=== PATIENT | male | born 1945 | race Caucasian/White ===

== ENCOUNTER 2017-11-29 16:04 | Inpatient (IN) | payer BC, OTHER ==
[~2017-11-29] VITALS: Ht 188 cm; Wt 74.0 kg
[2017-11-29] MEDS ORDERED: SODIUM CHLORIDE 0.9% 1000ML 1,000 ML IV STA (17:09)
[2017-11-29] MEDS ORDERED: ALBUTEROL 0.083% NEBU SOLN 3 ML VIAL INH STA ×2 (17:09→18:36)
[2017-11-29 17:39] LABS: BASO % 2.6 %; EOS % 4.4 %; EOS ABS # 0.34 K/uL (0-0.5); HEMATOCRIT 43.9 % (42-52); HEMOGLOBIN 15.3 g/dL (14.0-18.0); IG# 0.02 K/uL (0.00-0.02); LYMPH % 14.3 %; LYMPH ABS # 1.12 K/uL (1.2-3.4); MEAN CELL VOLUME 90.9 fL (80-100); MEAN CORPUSCULAR HEMOGLOBIN 31.7 pg (25-34); MEAN CORPUSCULAR HGB CONC 34.9 g/dl (32-36); MEAN PLATELET VOLUME 10.2 fL (7.4-10.4); MONO % 9.1 %; MONO ABS # 0.71 K/uL (0.11-0.59); NEUT % 69.3 %; NEUT ABS # 5.42 K/uL (1.4-6.5); PLATELET COUNT 227 K/uL (130-400); RED CELL DISTRIBUTION WIDTH CV 13.5 % (11.5-14.5); RED CELL DISTRIBUTION WIDTH SD 44.3 fL (36.4-46.3); WHITE BLOOD COUNT 7.81 K/uL (4.8-10.8)
[2017-11-29 17:58] LABS: ALBUMIN 3.7 gm/dl (3.4-5.0); CALCIUM 9.1 mg/dl (8.5-10.1); CREATININE 1.25 mg/dl (0.60-1.40); POTASSIUM 4.4 mmol/L (3.5-5.1)
--- NOTE | 2017-11-29 17:58 | DIAGNOSTIC IMAGING REPORT ---
CHEST ONE VIEW PORTABLE CLINICAL HISTORY: 72 years-old Male presenting with EVALUATE RESPIRATORY DISTRESS.DYSPNEA. TECHNIQUE: Portable upright AP view of the chest was obtained. COMPARISON: None. FINDINGS: Atherosclerosis of the aortic arch. Cardiac silhouette normal in size. Diffusely heterogeneous lung markings. Mild bronchial wall thickening suggested. Prominent skin fold over the right lateral apex. No focal opacity. No large effusion or pneumothorax. Osseous structures normal. Upper abdomen normal. IMPRESSION: 1. Bronchial wall thickening could suggest bronchitis or mild congestive change. 2. Prominent lung markings could suggest underlying chronic lung disease. 3. No focal infiltrate to suggest pneumonia. Electronically signed by: Abbe Mc M.D. 11/29/2017 5:57 PM Dictated Date/Time: 11/29/2017 5:56 PM
[2017-11-29] MEDS ORDERED: OPTIRAY 320 IV PRN (19:15)
[2017-11-29] MEDS ORDERED: LEVAQUIN 750MG / 150ML D5W IV STA (19:45)
[2017-11-29] MEDS ORDERED: METHYLPREDNISOLONE 125 MG VIAL IV STA (19:45)
--- NOTE | 2017-11-29 19:54 | DIAGNOSTIC IMAGING REPORT ---
(CHEST FOR PE) ANGIO WITH CLINICAL HISTORY: 72 years-old Male presenting with ^+dd abd sob, clinical concern for pulmonary embolus. TECHNIQUE: Multidetector CT angiography of the chest was performed after administration of intravenous contrast. 3-D volumetric and/or maximum intensity projection (MIP) images were subsequently reconstructed for review. IV contrast: 93 mL of Optiray 320. A dose lowering technique was used consistent with the principles of ALARA (as low as reasonably achievable). COMPARISON: Chest x-ray performed earlier the same day. CT DOSE (mGy.cm): The estimated cumulative dose is 278.59 mGy.cm. FINDINGS: [employer] topogram: Prominent lung markings and bronchial wall thickening. Pulmonary vasculature: The study is suboptimal for the assessment of the pulmonary vascular tree secondary to timing of the contrast bolus and respiratory motion artifact. Allowing for limited image quality, no central filling defect to suggest pulmonary embolus. Main pulmonary artery is not enlarged. No flattening of the interventricular septum. No intracardiac filling defect. No reflux of contrast into the hepatic veins. Remaining chest: On soft tissue windows, normal thyroid and thoracic inlet. Mediastinal and bilateral hilar lymphadenopathy. An index node in the subcarinal region measures 2.2 cm in the short axis (series 4 image 180). Conglomerate lymph nodes make individual measurement somewhat difficult in the daniel. Atherosclerosis of the aorta. Normal heart size. Coronary artery calcification. No pericardial or pleural effusion. Upper abdomen normal. On lung windows, respiratory artifact makes evaluation of the lung parenchyma difficult. Allowing for this, no focal infiltrate or nodule. Smooth interlobular septal thickening evident. Trace emphysematous changes may be present. Diffuse bronchial wall thickening. Central airways demonstrate layering debris. On bone windows, degenerative changes of the spine. IMPRESSION: 1. Allowing for suboptimal image quality, no evidence of pulmonary embolus. 2. Mediastinal and bilateral hilar lymphadenopathy raise concern for lymphoproliferative disease. No focal lung mass or nodule to suggest a lung primary with metastatic lymphadenopathy. Correlate with known underlying malignancy. 3. Findings consistent with congestive change. No pulmonary edema. Congestive change may be result of lymphatic obstruction due to lymphadenopathy. The report will be called/faxed according to standard departmental protocol. Electronically signed by: Abbe Mc M.D. 11/29/2017 7:53 PM Dictated Date/Time: 11/29/2017 7:47 PM
[2017-11-29] MEDS ORDERED: ACETAMINOPHEN 325 MG TAB PO PRN (20:30)
[2017-11-29] MEDS ORDERED: ONDANSETRON INJ 2 MG/ML 2 ML VIAL IV PRN (20:30)
[2017-11-29] MEDS ORDERED: PATIENT'S ALLERGY INFO NEEDS ENTERED SCH (20:45)
[2017-11-29] MEDS ORDERED: IBUP1CAP9 PO (21:13)
[2017-11-29] MEDS: ALBUT/IPRATROP 3MG/0.5MG NEB 3 ML VIAL NEB SCH (21:38)
--- NOTE | 2017-11-29 21:38 | History and Physical ---
History & Physical Date & Time of Service: Nov 29, 2017 at 21:03 Chief Complaint: Trouble Breathing,Cant Catch Breath Primary Care Physician: Jorge Mejia M.D. History of Present Illness Source: patient, family, clinic records, hospital records Pt is a 72-year-old male history tobacco abuse presented to ER with c/o cough and shortness of breath. Patient reports for 6-12 months has been having mucus and cough sometimes productive pale yellow. States yesterday started with increased mucus and coughing and had a coughing spell with increased shortness of breath and felt anxious and reports he hyperventilated. Feels increased shortness of breath with rest since yesterday. Patient reports shortness of breath with walking approximately 30 feet for past several weeks. Past 2 weeks feels like having some weakness with walking in using furniture in the house. Denies any falls. Patient reports chronic right nasal congestion, rhinorrhea in which he uses Dristan (oxymetazoline) every night. Patient smokes 1 pack a day 65 years. Denies known COPD dx. He does not go to Dr regularly. He reports 30 pound weight loss since 02/2017. He reports decreased appetite past year. Has BM every other day. Last BM 2 days ago. Reports history colonoscopy every 3 years secondary to polyps. Last colonoscopy 02/2017. Reports once had bright red blood on stool after straining to have BM but this has not occurred recently. Denies melena, hematochezia recently. Denies fever/chills, diaphoresis, N/V/D, COOPER, dizziness, syncope, vision changes , neck pain, CP, orthopnea, PND, palpitations, hemoptysis, sore throat, otalgia , epistaxis, abdominal pain, paresthesias, extremity edema, rashes, dysuria, hematuria, urinary retention. Past Medical/Surgical History Medical Problems: (1) Hx of colonic polyps Permanent Comment: adenomatous polyp Status: Chronic Surgical Problems: (1) Hx of appendectomy Status: Resolved (2) Hx of colonoscopy Status: Resolved (3) Hx of tonsillectomy Status: Resolved Family History Diabetes mellitus FH: colon cancer Social History Smoking Status: Current Every Day Smoker (smokes 1ppd x 55 years) Smokeless Tobacco Use: No Alcohol Use: 1 beer a week Drug Use: none Marital Status: Housing status: lives with significant other Allergies Coded Allergies: NO KNOWN DRUG ALLERGIES (Verified Allergy, Unknown, No known allergies, ) Home Medications Scheduled Ibuprofen (Ibuprofen), 2 CAP PO BID Review of Systems See HPI for pertinent positives & negatives. All other systems reviewed and were otherwise negative Physical Exam Vital Signs Date Time Temp Pulse Resp B/P (MAP) Pulse Ox O2 Delivery O2 Flow Rate FiO2 11/29/17 19:55 92 18 134/69 96 Nasal Cannula 2.0 11/29/17 19:54 81 11/29/17 18:00 84 24 148/52 99 Nasal Cannula 2.0 11/29/17 17:07 97 Nasal Cannula 2.0 11/29/17 16:19 Nasal Cannula 2.0 11/29/17 16:15 36.4 90 16 133/67 88 Room Air General Appearance: no apparent distress, + thin Head: normocephalic, atraumatic Eyes: normal inspection, PERRL, sclerae normal ENT: hearing grossly normal, pharynx normal, + pertinent finding (mucous membranes moist) Neck: supple, trachea midline Respiratory/Chest: no respiratory distress, no accessory muscle use, + rhonchi (bases bilaterally, no rales or wheezing noted) Cardiovascular: regular rate, rhythm, no murmur, normal peripheral pulses Abdomen/GI: normal bowel sounds, non tender, soft Extremities/Musculoskelatal: normal capillary refill, no pedal edema, non- tender Neurologic/Psych: alert, normal mood/affect, oriented x 3 Skin: normal color, warm/dry Diagnostics Laboratory Results Results Past 24 Hours Test 11/29/17 17:26 11/29/17 19:18 Range/Units White Blood Count 7.81 4.8-10.8 K/uL Red Blood Count 4.83 4.7-6.1 M/uL Hemoglobin 15.3 14.0-18.0 g/dL Hematocrit 43.9 42-52 % Mean Corpuscular Volume 90.9 80-100 fL Mean Corpuscular Hemoglobin 31.7 25-34 pg Mean Corpuscular Hemoglobin Concent 34.9 32-36 g/dl Platelet Count 227 130-400 K/uL Mean Platelet Volume 10.2 7.4-10.4 fL Neutrophils (%) (Auto) 69.3 % Lymphocytes (%) (Auto) 14.3 % Monocytes (%) (Auto) 9.1 % Eosinophils (%) (Auto) 4.4 % Basophils (%) (Auto) 2.6 % Neutrophils # (Auto) 5.42 1.4-6.5 K/uL Lymphocytes # (Auto) 1.12 1.2-3.4 K/uL Monocytes # (Auto) 0.71 0.11-0.59 K/uL Eosinophils # (Auto) 0.34 0-0.5 K/uL Basophils # (Auto) 0.20 0-0.2 K/uL RDW Standard Deviation 44.3 36.4-46.3 fL RDW Coefficient of Variation 13.5 11.5-14.5 % Immature Granulocyte % (Auto) 0.3 % Immature Granulocyte # (Auto) 0.02 0.00-0.02 K/uL Prothrombin Time 10.9 9.0-12.0 SECONDS Prothromb Time International Ratio 1.0 0.9-1.1 D-Dimer 1460 0-500 ug/L FEU Sodium Level 139 136-145 mmol/L Potassium Level 4.4 3.5-5.1 mmol/L Chloride Level 104 98-107 mmol/L Carbon Dioxide Level 29 21-32 mmol/L Anion Gap 6.0 3-11 mmol/L Blood Urea Nitrogen 19 7-18 mg/dl Creatinine 1.25 0.60-1.40 mg/dl Est Creatinine Clear Calc Drug Dose 57.6 ml/min Estimated GFR () 67.2 Estimated GFR (Non- 58.0 BUN/Creatinine Ratio 15.0 10-20 Random Glucose 103 70-99 mg/dl Calcium Level 9.1 8.5-10.1 mg/dl Total Bilirubin 0.7 0.2-1 mg/dl Aspartate Amino Transf (AST/SGOT) 19 15-37 U/L Alanine Aminotransferase (ALT/SGPT) 18 12-78 U/L Alkaline Phosphatase 104 45-117 U/L Troponin I 0.019 0-0.045 ng/ml Pro-B-Type Natriuretic Peptide 207 0-900 pg/ml Total Protein 7.0 6.4-8.2 gm/dl Albumin 3.7 3.4-5.0 gm/dl Globulin 3.3 2.5-4.0 gm/dl Albumin/Globulin Ratio 1.1 0.9-2 Urine Color DK YELLOW Urine Appearance CLEAR CLEAR Urine pH 5.0 4.5-7.5 Urine Specific [place] 1.026 1.000-1.030 Urine Protein NEG NEG Urine Glucose (UA) NEG NEG Urine Ketones 2+ NEG Urine Occult Blood NEG NEG Urine Nitrite NEG NEG Urine Bilirubin NEG NEG Urine Urobilinogen NEG NEG Urine Leukocyte Esterase NEG NEG Diagnostic Radiology CXR: IMPRESSION: 1. Bronchial wall thickening could suggest bronchitis or mild congestive change. 2. Prominent lung markings could suggest underlying chronic lung disease. 3. No focal infiltrate to suggest pneumonia. CT CHEST: IMPRESSION: 1. Allowing for suboptimal image quality, no evidence of pulmonary embolus. 2. Mediastinal and bilateral hilar lymphadenopathy raise concern for lymphoproliferative disease. No focal lung mass or nodule to suggest a lung primary with metastatic lymphadenopathy. Correlate with known underlying malignancy. 3. Findings consistent with congestive change. No pulmonary edema. Congestive change may be result of lymphatic obstruction due to lymphadenopathy. EKG EKG: NSR, rate 80, no acute changes noted Impression Assessment and Plan HYPOXIA SECONDARY TO ACUTE BRONCHITIS Pt reports chronic cough and mucous and 55 year smoking hx. increased cough and mucous yesterday with increased SOB past 1-2 weeks. In ER pt afebrile, no leukocytosis. 88% on RA up to 96% on 2L NC. Pt given Levaquin IV, 2 albuterol neb tx, 1L NSS, Solumedrol 125mg IV. CT CHEST: No PE, Mediastinal and bilateral hilar lymphadenopathy raise concern for lymphoproliferative disease. No focal lung mass or nodule to suggest a lung primary with metastatic lymphadenopathy. Findings consistent with congestive change. No pulmonary edema. Congestive change may be result of lymphatic obstruction due to lymphadenopathy. -sputum culture -pending influenza swab -Levaquin -Solumedrol -guaifenesin with codeine prn cough -duoneb -consider out-patient pulmonology consult -cbc, prp in am CHRONIC NASAL CONGESTION Would recommend patient stop using the Dristan (afrin) nasal spray as he is probably having rebound congestion from chronic use. -Will start on Flonase nasal spray TOBACCO USE Pt denies nicotine patch at this time -smoking cessation discussed DVT Prophylaxis -Lovenox Disposition admit tele Full Code as per discussion with pt Follows with Dr Mejia for routine care Pt was seen with Dr Devine. See addendum ADDENDUM: I have seen and examined the patient and agree with the assessment and plan as above. No infiltrate on CXR but increased inflammation around the airways. Seem to have a chronic element of upper airway issues and frequently uses oxymetolazone which will cause problems with tachyphylaxis long-term. Stopping this now and switching to Flonase to help with post nasal drip issues while symptoms persist. Chronic smoker with poss structural lung disease on CT scan, and higher possibility of pseudomonas so going with the higher dosage of Levaquin. No wheezing on my exam in the ER after breathing treatments, so may be able to stop/wean steroids soon. Nilson, DO Resuscitation Status VTE Prophylaxis Will order VTE Prophylaxis: Yes Additional Copies To Jorge Mejia M.D.
[2017-11-29 22:20] VITALS: BP 122/62; PULSE 91; TEMP 36.6; O2SAT 91; BMI 20.9
[2017-11-29] MEDS ORDERED: PNEUMOCOCCAL POLYSACCHARIDES 25 MCG/0.5 ML VIAL/SYR IM. ONE (22:30)
[2017-11-29] MEDS ORDERED: PNEUMOCOCCAL ADMINISTRATION CHARGE ONE (22:30)
[2017-11-29 22:32] LABS: INFLUENZA A PCR Neg for Influ A (NEG); INFLUENZA B PCR Neg for Influ B (NEG)
[2017-11-29] MEDS ORDERED: ENOXAPARIN 40 MG/0.4 ML SYR SC SCH (23:00)
[2017-11-29] MEDS: GUAIFENESIN/CODEINE 100MG/10MG 5ML UDC PO PRN (23:38)
[2017-11-29] MEDS: FLUTICASONE PROPIONATE NA SPR 16 GM BTL NAE SCH (23:39)
--- NOTE | 2017-11-29 23:46 | EMERGENCY ROOM VISIT NOTE ---
History Report prepared by Deandra: Kia Raygoza Under the Supervision of: Dr. Buck Marks D.O. First contact with patient: 16:54 Chief Complaint: RESPIRATORY PROBLEMS Stated Complaint: TROUBLE BREATHING,CANT CATCH BREATH Nursing Triage Summary: Pt ambulatory to triage for eval of difficulty breathing x 2 weeks. Pt states, "I had an episode last night where I couldn't catch my breath at all. I have a lot of mucous. I have lost 30lbs since February." Denies cp. Fatigue. Muscle atrophy. Cough. History of Present Illness The patient is a 72 year old male who presents to the Emergency Room with complaints of persistent SOB starting 2 weeks ago. His symptoms started with a cough 2 weeks ago. He was coughing up white mucous, but no blood. Last night, he became SOB with the coughing. He felt some congestion which he tried coughing up, but then he started hyperventilating and felt like he could not catch his breath. Today he has been constantly coughing and feeling SOB. He denies any fever, chest pain, abdominal pain, nausea, vomiting, urinary symptoms , change in bowel movement, or calf swelling. He normally does not wear oxygen. He does smoke. He has lost significant weight in the past 6 months. He denies any recent travel. He has a history of skin cancer. Source of History: patient, family Onset: 2 weeks ago Position: chest Quality: other (SOB) Timing: other (persistent) Associated Symptoms: + cough, No fevers, No chest pain, No nausea, No vomiting, No abdominal pain, No urinary symptoms Review of Systems See HPI for pertinent positives & negatives. A total of 10 systems reviewed and were otherwise negative. Past Medical & Surgical Medical Problems: (1) Bronchitis (2) Hx of colonic polyps (3) Hypoxia Surgical Problems: (1) Hx of appendectomy (2) Hx of colonoscopy (3) Hx of tonsillectomy Family History No pertinent family history stated. Social History Smoking Status: Current Every Day Smoker Marital Status: Housing Status: lives with significant other Occupation Status: retired Current/Historical Medications Scheduled Ibuprofen (Ibuprofen), 2 CAP PO BID Allergies Coded Allergies: NO KNOWN DRUG ALLERGIES (Verified Allergy, Unknown, No known allergies, ) Physical Exam Vital Signs Date Time Temp Pulse Resp B/P (MAP) Pulse Ox O2 Delivery O2 Flow Rate FiO2 11/29/17 19:55 92 18 134/69 96 Nasal Cannula 2.0 11/29/17 19:54 81 11/29/17 18:00 84 24 148/52 99 Nasal Cannula 2.0 11/29/17 17:07 97 Nasal Cannula 2.0 11/29/17 16:19 Nasal Cannula 2.0 11/29/17 16:15 36.4 90 16 133/67 88 Room Air Physical Exam GENERAL: Sitting up in bed, malnourished, no acute distress, nontoxic, talking in full sentences, on nasal cannula EYE EXAM: normal conjunctiva. OROPHARYNX: no exudate, no erythema, lips, buccal mucosa, and tongue normal and mucous membranes are moist NECK: supple, no nuchal rigidity, no adenopathy, non-tender LUNGS: Diffuse wheezing bilaterally. Normal chest wall mechanics HEART: no murmurs, S1 normal and S2 normal ABDOMEN: abdomen soft, non-tender, normo-active bowel sounds, no masses, no rebound or guarding. BACK: Back is symmetrical on inspection and there is no deformity, no midline tenderness, no CVA tenderness. SKIN: no rashes and no bruising UPPER EXTREMITIES: upper extremities are grossly normal. LOWER EXTREMITIES: No pitting edema. Calves equal bilaterally. NEURO EXAM: Normal sensorium, cranial nerves II-XII grossly intact, normal speech, no gross weakness of arms, no gross weakness of legs. Medical Decision & Procedures ER Provider Diagnostic Interpretation: Radiology results as stated below per my review and the radiologist's interpretation: CHEST ONE VIEW PORTABLE CLINICAL HISTORY: 72 years-old Male presenting with EVALUATE RESPIRATORY DISTRESS.DYSPNEA. TECHNIQUE: Portable upright AP view of the chest was obtained. COMPARISON: None. FINDINGS: Atherosclerosis of the aortic arch. Cardiac silhouette normal in size. Diffusely heterogeneous lung markings. Mild bronchial wall thickening suggested. Prominent skin fold over the right lateral apex. No focal opacity. No large effusion or pneumothorax. Osseous structures normal. Upper abdomen normal. IMPRESSION: 1. Bronchial wall thickening could suggest bronchitis or mild congestive change. 2. Prominent lung markings could suggest underlying chronic lung disease. 3. No focal infiltrate to suggest pneumonia. Electronically signed by: Abbe Mc M.D. 11/29/2017 5:57 PM Dictated Date/Time: 11/29/2017 5:56 PM (CHEST FOR PE) ANGIO WITH CLINICAL HISTORY: 72 years-old Male presenting with ^+dd abd sob, clinical concern for pulmonary embolus. TECHNIQUE: Multidetector CT angiography of the chest was performed after administration of intravenous contrast. 3-D volumetric and/or maximum intensity projection (MIP) images were subsequently reconstructed for review. IV contrast: 93 mL of Optiray 320. A dose lowering technique was used consistent with the principles of ALARA (as low as reasonably achievable). COMPARISON: Chest x-ray performed earlier the same day. CT DOSE (mGy.cm): The estimated cumulative dose is 278.59 mGy.cm. FINDINGS: Surgical Instruments Inspector topogram: Prominent lung markings and bronchial wall thickening. Pulmonary vasculature: The study is suboptimal for the assessment of the pulmonary vascular tree secondary to timing of the contrast bolus and respiratory motion artifact. Allowing for limited image quality, no central filling defect to suggest pulmonary embolus. Main pulmonary artery is not enlarged. No flattening of the interventricular septum. No intracardiac filling defect. No reflux of contrast into the hepatic veins. Remaining chest: On soft tissue windows, normal thyroid and thoracic inlet. Mediastinal and bilateral hilar lymphadenopathy. An index node in the subcarinal region measures 2.2 cm in the short axis (series 4 image 180). Conglomerate lymph nodes make individual measurement somewhat difficult in the daniel. Atherosclerosis of the aorta. Normal heart size. Coronary artery calcification. No pericardial or pleural effusion. Upper abdomen normal. On lung windows, respiratory artifact makes evaluation of the lung parenchyma difficult. Allowing for this, no focal infiltrate or nodule. Smooth interlobular septal thickening evident. Trace emphysematous changes may be present. Diffuse bronchial wall thickening. Central airways demonstrate layering debris. On bone windows, degenerative changes of the spine. IMPRESSION: 1. Allowing for suboptimal image quality, no evidence of pulmonary embolus. 2. Mediastinal and bilateral hilar lymphadenopathy raise concern for lymphoproliferative disease. No focal lung mass or nodule to suggest a lung primary with metastatic lymphadenopathy. Correlate with known underlying malignancy. 3. Findings consistent with congestive change. No pulmonary edema. Congestive change may be result of lymphatic obstruction due to lymphadenopathy. The report will be called/faxed according to standard departmental protocol. Electronically signed by: Abbe Mc M.D. 11/29/2017 7:53 PM Dictated Date/Time: 11/29/2017 7:47 PM Laboratory Results 11/29/17 17:26 Red Blood Count 4.83, Mean Corpuscular Volume 90.9, Mean Corpuscular Hemoglobin 31.7, Mean Corpuscular Hemoglobin Concent 34.9, Mean Platelet Volume 10.2, Neutrophils (%) (Auto) 69.3, Lymphocytes (%) (Auto) 14.3, Monocytes (%) (Auto) 9.1, Eosinophils (%) (Auto) 4.4, Basophils (%) (Auto) 2.6, Neutrophils # (Auto) 5.42, Lymphocytes # (Auto) 1.12, Monocytes # (Auto) 0.71, Eosinophils # (Auto) 0.34, Basophils # (Auto) 0.20 11/29/17 17:26 Test 11/29/17 17:26 11/29/17 19:18 White Blood Count 7.81 K/uL (4.8-10.8) Red Blood Count 4.83 M/uL (4.7-6.1) Hemoglobin 15.3 g/dL (14.0-18.0) Hematocrit 43.9 % (42-52) Mean Corpuscular Volume 90.9 fL (80-100) Mean Corpuscular Hemoglobin 31.7 pg (25-34) Mean Corpuscular Hemoglobin Concent 34.9 g/dl (32-36) Platelet Count 227 K/uL (130-400) Mean Platelet Volume 10.2 fL (7.4-10.4) Neutrophils (%) (Auto) 69.3 % Lymphocytes (%) (Auto) 14.3 % Monocytes (%) (Auto) 9.1 % Eosinophils (%) (Auto) 4.4 % Basophils (%) (Auto) 2.6 % Neutrophils # (Auto) 5.42 K/uL (1.4-6.5) Lymphocytes # (Auto) 1.12 K/uL (1.2-3.4) Monocytes # (Auto) 0.71 K/uL (0.11-0.59) Eosinophils # (Auto) 0.34 K/uL (0-0.5) Basophils # (Auto) 0.20 K/uL (0-0.2) RDW Standard Deviation 44.3 fL (36.4-46.3) RDW Coefficient of Variation 13.5 % (11.5-14.5) Immature Granulocyte % (Auto) 0.3 % Immature Granulocyte # (Auto) 0.02 K/uL (0.00-0.02) Prothrombin Time 10.9 SECONDS (9.0-12.0) Prothromb Time International Ratio 1.0 (0.9-1.1) D-Dimer 1460 ug/L FEU (0-500) Anion Gap 6.0 mmol/L (3-11) Est Creatinine Clear Calc Drug Dose 57.6 ml/min Estimated GFR () 67.2 Estimated GFR (Non- 58.0 BUN/Creatinine Ratio 15.0 (10-20) Calcium Level 9.1 mg/dl (8.5-10.1) Total Bilirubin 0.7 mg/dl (0.2-1) Aspartate Amino Transf (AST/SGOT) 19 U/L (15-37) Alanine Aminotransferase (ALT/SGPT) 18 U/L (12-78) Alkaline Phosphatase 104 U/L (45-117) Troponin I 0.019 ng/ml (0-0.045) Pro-B-Type Natriuretic Peptide 207 pg/ml (0-900) Total Protein 7.0 gm/dl (6.4-8.2) Albumin 3.7 gm/dl (3.4-5.0) Globulin 3.3 gm/dl (2.5-4.0) Albumin/Globulin Ratio 1.1 (0.9-2) Urine Color DK YELLOW Urine Appearance CLEAR (CLEAR) Urine pH 5.0 (4.5-7.5) Urine Specific [place] 1.026 (1.000-1.030) Urine Protein NEG (NEG) Urine Glucose (UA) NEG (NEG) Urine Ketones 2+ (NEG) Urine Occult Blood NEG (NEG) Urine Nitrite NEG (NEG) Urine Bilirubin NEG (NEG) Urine Urobilinogen NEG (NEG) Urine Leukocyte Esterase NEG (NEG) Laboratory results per my review. Medications Administered Medications (Trade) Dose Ordered Sig/Arnel Route Start Time Stop Time Status Last Admin Dose Admin Albuterol Sulfate (Ventolin 0.083% 2.5MG/3ML Neb) 2.5 mg NOW STAT INH 11/29/17 17:09 18 17:11 DC 11/29/17 17:28 2.5 MG Sodium Chloride 1,000 ml @ 999 mls/hr Q1H1M STAT IV 11/29/17 17:09 11/29/17 18:09 DC 11/29/17 17:28 999 MLS/HR Albuterol Sulfate (Ventolin 0.083% 2.5MG/3ML Neb) 2.5 mg NOW STAT INH 11/29/17 18:36 11/29/17 18:37 DC 11/29/17 18:43 2.5 MG Levofloxacin (Levaquin / D5W) 750 mg NOW STAT IV 11/29/17 19:45 11/29/17 19:46 DC 11/29/17 19:55 750 MG Methylprednisolone Sodium Succinate (Solu-Medrol IV) 125 mg NOW STAT IV 11/29/17 19:45 11/29/17 19:46 DC 11/29/17 19:55 125 MG Albuterol/ Ipratropium (Duoneb) 3 ml Q6R NEB 11/29/17 21:00 12/29/17 20:59 11/29/17 21:38 3 ML ECG Per My Interpretation Indication: SOB/dyspnea Rate (beats per minute): 83 Rhythm: sinus rhythm Findings: no ectopy, other (normal axis) ED Course ED COURSE: Vital signs were reviewed and showed hypoxia. The patients medical record was reviewed The above diagnostic studies were performed and reviewed. ED treatments and interventions as stated above. 1701: The patient was evaluated in room B12A. A complete history and physical examination was performed. 170: Sodium Chloride 1000 ml @ 999 mls/hr IV, Albuterol Sulfate 2.5 mg INH. 1835: I reevaluated the patient. He is feeling a little better after the nebulizer treatment. 183: Albuterol Sulfate 2.5 mg INH. 191: I reevaluated the patient. I updated him on the results. 1944: Solu-Medrol IV 125 mg IV, Levofloxacin 750 mg IV. 1999: Upon reevaluation, the patient is stable. I discussed my findings with the patient and his family and they understands and agrees with the treatment plan. Based on the patients age, coexisting illnesses, exam and lab findings the decision to treat as an inpatient was made. The patient remained stable while under my care. The patient will be evaluated for further management. 2001: I reviewed the patient's case with Dr[facility] Luna[facility]. He will evaluate the patient for further management. Medical Decision Differential diagnoses includes but is not limited to pneumonia, bronchitis, COPD/Asthma exacerbation, pneumothorax, pulmonary embolism, congestive heart failure, acute coronary syndrome Patient is a 72-year-old male who is a smoker the presents the ER for persistent cough for the past 2 weeks associated with white sputum. Patient notes that recently over the past 2 days he has been becoming more short of breath. IV was established and CBC along with BMP, LFTs, bilirubin and troponin were unremarkable. Patient was hypoxic upon presentation. D-dimer was elevated. CT PE was performed and was unremarkable. UA was negative. Patient with his diffuse wheezing was treated with nebs and steroids. I did give him IV Levaquin as I favor this as a component of bronchitis. Patient family were updated at bedside. Admitted to internal medicine for hypoxia associated with diffuse wheezing. Medication Reconcilliation Current Medication List: was personally reviewed by me Blood Pressure Screening Patient's blood pressure: Normal blood pressure Blood pressure disposition: Did not require urgent referral Consults Time Called: 1999 Consulting Physician: Dr. Luna [facility] hospitalist Returned Call: 2001 I reviewed the patient's case with him. He will evaluate the patient for further management. Impression Primary Impression: Bronchitis Additional Impressions: COPD (chronic obstructive pulmonary disease) Hypoxia Scribe Attestation The scribe's documentation has been prepared under my direction and personally reviewed by me in its entirety. I confirm that the note above accurately reflects all work, treatment, procedures, and medical decision making performed by me. Departure Information Dispostion Being Evaluated By Hospitalist Referrals Jorge Mejia M.D. (PCP) Patient Instructions My [facility] Problem Qualifiers Additional Impressions: COPD (chronic obstructive pulmonary disease) COPD type: unspecified COPD Qualified Codes: J44.9 - Chronic obstructive pulmonary disease, unspecified
[2017-11-30] VITALS (10 sets, daily range): BP systolic 96–149; BP diastolic 53–69; PULSE 74–113; TEMP 36.4–36.6; O2SAT 87–93
[2017-11-30] MEDS: METHYLPREDNISOLONE IV 40 MG in SYRINGE 0 ML IV SCH ×4 (01:31→21:34)
[2017-11-30] MEDS: GUAIFENESIN/CODEINE 100MG/10MG 5ML UDC PO PRN ×2 (06:20→12:35)
[2017-11-30 06:23] LABS: BASO % 0.2 %; BASO ABS # 0.01 K/uL (0-0.2); EOS % 0.2 %; EOS ABS # 0.01 K/uL (0-0.5); HEMATOCRIT 40.5 % (42-52); HEMOGLOBIN 13.7 g/dL (14.0-18.0); LYMPH % 6.8 %; LYMPH ABS # 0.28 K/uL (1.2-3.4); MEAN CELL VOLUME 91.2 fL (80-100); MEAN CORPUSCULAR HEMOGLOBIN 30.9 pg (25-34); MEAN CORPUSCULAR HGB CONC 33.8 g/dl (32-36); MEAN PLATELET VOLUME 10.4 fL (7.4-10.4); MONO % 1.5 %; MONO ABS # 0.06 K/uL (0.11-0.59); NEUT % 91.3 %; NEUT ABS # 3.76 K/uL (1.4-6.5); PLATELET COUNT 202 K/uL (130-400); RED CELL DISTRIBUTION WIDTH CV 13.6 % (11.5-14.5); RED CELL DISTRIBUTION WIDTH SD 44.9 fL (36.4-46.3); WHITE BLOOD COUNT 4.12 K/uL (4.8-10.8)
[2017-11-30 06:52] LABS: CALCIUM 8.8 mg/dl (8.5-10.1); CREATININE 1.27 mg/dl (0.60-1.40); POTASSIUM 4.2 mmol/L (3.5-5.1)
[2017-11-30] MEDS: ALBUT/IPRATROP 3MG/0.5MG NEB 3 ML VIAL NEB SCH ×2 (07:52→13:38)
[2017-11-30] MEDS: FLUTICASONE PROPIONATE NA SPR 16 GM BTL NAE SCH (11:30)
[2017-11-30] MEDS ORDERED: IBUPROFEN 600 MG TAB PO PRN (14:45)
[2017-11-30] MEDS ORDERED: POLYETHYLENE (MIRALAX) 17 GM PACK PO PRN (15:00)
[2017-11-30] MEDS ORDERED: ALBUT/IPRATROP 3MG/0.5MG NEB 3 ML VIAL INH PRN (15:45)
[2017-11-30] MEDS: ALBUT/IPRATROP 3MG/0.5MG NEB 3 ML VIAL INH SCH ×2 (16:00→19:37)
--- NOTE | 2017-11-30 16:57 | ECHOCARDIOGRAM REPORT ---
*NOTICE TO RECEIVING [employer] This information is strictly Confidential and protected under [place] law. [place] law prohibits you from making any further disclosure of this information unless further disclosure is expressly permitted by the written consent of the person to whom it pertains or is authorized by law. A general authorization for the release of medical or other information is not sufficient for this purpose. Hospital accepts no responsibility if the information is made available to any other person, INCLUDING THE PATIENT. Interpretation Summary * Name: TRINA ANTHONY Study Date: 11/30/2017 02:02 PM BP: 127/63 mmHg * Patient Location: [facility]\S\N278\S\2 HR: 93 * : 1945 (M/d/yyyy) Gender: Male Height: 73 in * Age: 72 yrs Ethnicity: [place] Weight: 163 lb * Ordering Physician: Lidia Terrazas * Referring Physician: Self, Referred * Performed By: Aneta Pena RDCS * * Reason For Study: SOB, SHANKS * BSA: 2.0 m2 * The study was technically adequate. * -- Conclusions -- * No regional wall motion abnormalities noted. * The left ventricle is hyperdynamic. * The left ventricular ejection fraction = >70 %. * The right ventricle is normal in size and function. * Aortic valve sclerosis mild, without significant aortic valvular stenosis. * Doppler findings do not suggest pulmonary hypertension. * Grade I diastolic dysfunction, (abnormal relaxation pattern). Procedure Details * A complete two-dimensional transthoracic echocardiogram was performed (2D, M-mode, Doppler and color flow Doppler). Left Ventricle * The left ventricle is normal in size. * There is normal left ventricular wall thickness. * The left ventricle is hyperdynamic. * Ejection Fraction = >70 %. * The left ventricular wall motion is normal. * No regional wall motion abnormalities noted. Right Ventricle * The right ventricle is normal in size and function. * The right ventricular systolic function is normal as assessed by tricuspid annular plane systolic excursion (TAPSE) (normal >1.5 cm). Atria * The left atrial size is normal. * Right atrial size is normal. * There is no evidence of atrial septal defect, but resolution does not allow assessment for a patent foramen ovale. Mitral Valve * The mitral valve is normal. * There is no mitral valve stenosis. * Significant mitral regurgitation is absent. Tricuspid Valve * The tricuspid valve is normal. * There is no tricuspid stenosis. * Significant tricuspid regurgitation is absent. * Doppler findings do not suggest pulmonary hypertension. Aortic Valve * The aortic valve is trileaflet. * Aortic valve sclerosis mild, without significant aortic valvular stenosis. * Aortic stenosis is absent. * There is no significant aortic regurgitation. Pulmonic Valve * The pulmonary valve is not well seen, but the Doppler examination is normal without significant regurgitation or stenosis. Great Vessels * The aortic root and proximal ascending aorta are normal sized. Pericardium/Pleural * A trivial degree of circumferential pericardial effusion is present compatible with normal physiology. Great Vessels * Normal inferior vena cava diameter and respiratory variation suggests normal central venous pressure. Left Ventricular Diastolic Function * Grade I diastolic dysfunction, (abnormal relaxation pattern). MMode 2D Measurements and Calculations IVSd 1.0 cm IVSs 1.2 cm LVIDd 4.3 cm LVIDs 2.8 cm LVPWd 1.3 cm LVPWs 1.9 cm IVS/LVPW 0.79 FS 34.8 % EDV(Teich) 81.6 ml ESV(Teich) 29.1 ml EF(Teich) 64.3 % EDV(cubed) 77.8 ml ESV(cubed) 21.6 ml EF(cubed) 72.3 % % IVS thick 10.4 % % LVPW thick 46.4 % LV mass(C)d 179.3 grams LV mass(C)dI 90.9 grams/m\S\2 LV mass(C)s 151.5 grams LV mass(C)sI 76.8 grams/m\S\2 SV(Teich) 52.5 ml SI(Teich) 26.6 ml/m\S\2 SV(cubed) 56.2 ml SI(cubed) 28.5 ml/m\S\2 Ao root diam 3.6 cm Ao root area 10.4 cm\S\2 LVAd ap4 31.5 cm\S\2 LVLd ap4 8.6 cm EDV(MOD-sp4) 96.7 ml EDV(sp4-el) 98.6 ml LVAs ap4 17.0 cm\S\2 LVLs ap4 7.0 cm ESV(MOD-sp4) 37.8 ml ESV(sp4-el) 35.1 ml EF(MOD-sp4) 60.9 % EF(sp4-el) 64.4 % LVAd ap2 30.0 cm\S\2 LVLd ap2 9.2 cm EDV(MOD-sp2) 82.2 ml EDV(sp2-el) 83.1 ml LVAs ap2 15.2 cm\S\2 LVLs ap2 7.4 cm ESV(MOD-sp2) 27.9 ml ESV(sp2-el) 26.8 ml EF(MOD-sp2) 66.1 % EF(sp2-el) 67.7 % LVLd %diff 7.0 % EDV(MOD-bp) 90.2 ml LVLs %diff 4.8 % ESV(MOD-bp) 33.3 ml EF(MOD-bp) 63.1 % SV(MOD-sp4) 58.9 ml SI(MOD-sp4) 29.9 ml/m\S\2 SV(MOD-sp2) 54.3 ml SI(MOD-sp2) 27.5 ml/m\S\2 SV(MOD-bp) 56.9 ml SI(MOD-bp) 28.9 ml/m\S\2 SV(sp4-el) 63.5 ml SI(sp4-el) 32.2 ml/m\S\2 SV(sp2-el) 56.3 ml SI(sp2-el) 28.5 ml/m\S\2 Doppler Measurements and Calculations MV E max neeraj 56.1 cm/sec MV A max neeraj 58.8 cm/sec MV E/A 0.95 MV dec time 0.30 sec
--- NOTE | 2017-11-30 17:34 | Progress Note ---
Internal Med Progress Note Date of Service: Nov 30, 2017. Provider Documentation: SUBJECTIVE: Remains hypoxic, requiring 2.5 L oxygen via nasal cannula (was not on home O2 ) Has nonproductive cough No audible wheeze No fever or chills Multiple family members present at bedside OBJECTIVE: Vital Signs-as noted below Exam: General-chronically ill-appearing male, appears to be cachectic Eyes-sclera nonicteric, pupils reactive to light ENT-moist oral mucosa Neck-no JVD, no carotid bruit noted Lungs-fairly poor air entry/diminished breath sound/no wheeze noted Heart-regular Abdomen-soft nontender bowel sounds active Extremities-no rash or deformity, no lower extremity Neuro-alert awake oriented 3, no focal neurological deficit Lab data as noted below. ASSESSMENT & PLAN: ACUTE RESPIRATORY FAILURE/HYPOXIA: Stable combination of COPD exacerbation/acute bronchitis Was hypoxic SPO2 88% in room air in ER Improved to 96% on 2L NC. Pt reports chronic cough and mucous and 55 year smoking hx. increased cough and mucous yesterday with increased SOB past 1-2 weeks. Patient is continued 02 supplement Ordered for neb treatment No evidence of infection/pneumonia noted/will DC antibiotic CT CHEST: No PE, Mediastinal and bilateral hilar lymphadenopathy raise concern for lymphoproliferative disease. No focal lung mass or nodule to suggest a lung primary with metastatic lymphadenopathy. Findings consistent with congestive change. No pulmonary edema. Congestive change may be result of lymphatic obstruction due to lymphadenopathy. Pulmonology consulted, CAT scan reviewed with Dr. Nguyen Patient will need bronchoscopic biopsy Finding of CAT scan updated to patient/ and children present at bedside Willing to go for bronchoscopy and biopsy while inpatient Patient has not with any physician for last 23 years Family is concerned with outpatient bronchoscopy scheduling patient will not show up for the appointment Discussed with pulmonology to have the procedure done possible tomorrow Ordered for n.p.o. past midnight HX OF LONG TIME HEAVY TOBACCO USE Smokes a pack of cigarettes for last 55 years current every day smoker Pt denies nicotine patch at this time -smoking cessation discussed SIGNIFICANT WT LOSS /POOR APPETITE /INCREASED WEAKNESS /POOR EXERCISE TOLERANCE : lost approx ~30 lb in past 5-6 months does not have appetite , refuses to eat as food does not taste right have not seen a physician for past 23 yrs never had any screening test -Colonoscopy /PSA check etc no report of dark stool hx of heavy smoking CT evidence of mediastinal and hilar lymphadenopathy will need Bronchoscopic biopsy ordered for CEA /PSA level stool for heme occult dietary consulted for nutritional supplement DVT Prophylaxis -Lovenox ordered to hold today's dose for possible bronchoscopy/biopsy tomorrow CODE STATUS full code DISPOSITION Expected to be discharged home when medically stable Will need to step exercise to assess for home oxygen PT OT evaluation requested Prior to discharge Medicine follow-up with Dr. Mejia at [facility]-pt have not seen the provider yet Depending on the pathology finding of hilar/mediastinal lymph nodes biopsy patient will need follow-up with hematology oncology as an outpatient Vital Signs: Date Time Temp Pulse Resp B/P (MAP) Pulse Ox O2 Delivery O2 Flow Rate FiO2 12/02/17 14:27 36.7 76 16 88 Room Air 12/02/17 11:28 76 16 88 Room Air 12/02/17 11:00 36.7 90 18 111/55 (73) 97 2.0 12/02/17 08:40 Room Air 12/02/17 07:28 73 16 92 Room Air 12/02/17 07:22 36.5 63 18 119/55 (76) 99 4.0 Lab Results: Results Past 24 Hours Test 12/02/17 14:31 Range/Units Prostate Specific Antigen > 30800.000 0.000-4.000 ng/ml
--- NOTE | 2017-11-30 19:50 | Progress Note ---
Progress Note Date of Service Nov 30, 2017. Progress Note Patient is seen by pulmonology Dr. Abhijeet Cervantes this evening; patient was hesitant to give consent for bronchoscopy tomorrow, wanted to discuss with her daughter Jeanette who is a RN Got a call from patient's Yaquelin Urena - is concerned patient was not able to understand the procedure explained by Dr. Cervantes And may have said "no" not knowing. Patient later called and stated he wants to have the bronchoscopy procedure tomorrow. Dr. Cervantes is updated, wants to speak with patient's daughter personally to explain the procedure Phone number for daughter Jeanette POA #[phone]-given to Dr. Cervantes pt will be kept NPO past midnight hold Lovenox SC for Bronchoscopy tomorrow
[2017-11-30] MEDS ORDERED: LEVOFLOXACIN / D5W 750 MG in PREMIXED IN D5W 150 ML IV SCH (20:00)
[2017-11-30] MEDS: DOCUSATE SODIUM 100 MG CAP PO SCH (21:34)
[2017-12-01] VITALS (12 sets, daily range): BP systolic 104–145; BP diastolic 53–68; PULSE 71–93; TEMP 36.2–36.4; O2SAT 90–97; Ht 188 cm; Wt 74.0 kg
--- NOTE | 2017-12-01 06:49 | Pulmonary Consultation ---
History General Date of Service: Dec 01, 2017. Stated Complaint: Bronchitis, Hypoxia HPI The patient is a 72 year old male who presents to [facility] with complaints of Bronchitis, Hypoxia. The patient's primary care provider is Jorge Mejia M.D.. 72-year-old male admitted with progressive shortness of breath, unintentional weight loss and abnormal CT findings: Patient has a chronic history of tobacco use approximately 65 pack year history who is been noting progressive weight loss for approximately the last 6 months up to 30 pounds unintentionally. He has also noted progressive fatigue and shortness of Breath over that time as having difficulty walking on level ground. He also is noting a chronic semi productive cough over that time with associated rhinitis but denies heartburn. During his workup CXR showed mediastinal adenopathy which led to a CT of the chest showing diffuse mediastinal adenopathy with lymphangitic changes within the lung parenchyma. During our visit the patient continues to note dyspnea with exertion but not at rest and denies: Fever, chills, productive cough, orthopnea, dizziness, CORNER FORMER weakness, nausea, vomiting, pleurisy or classic cardiac chest pain. Work-up EKG: Normal sinus rhythm rate of 83 no signs of acute ischemia Echocardiogram: Ejection fraction >70%, TAPSE >1.5cm, grade 1 diastolic dysfunction PLT: 227K D-dimer: 1460 INR: 1.0 PT: 10.9 Creatinine: 1.27 PmHx: 1. Colonic polyps PsHx: 1. Appendectomy 2. Colonoscopy 3. Tonsillectomy Family history Diabetes mellitus, colon cancer Social history Tobacco status: 56 pack year history current every day smoker Alcohol: Minimal use IV drug history: None Occupation: Retired Marital history: Lives with his Outpatient medications: 1. Ibuprofen p.r.n. basis Historian: patient, EMS Review of Systems Constitutional: reports: malaise, weakness Eyes: reports: no symptoms ENT: reports: nasal congestion, rhinorrhea Cardiovascular: reports: no symptoms Respiratory: reports: as stated in HPI Gastrointestinal: reports: no symptoms Genitourinary - Male: reports: no symptoms Musculoskeletal: reports: myalgias Integumentary: reports: no symptoms Neurologic: reports: no symptoms Psychiatric: reports: no symptoms Endocrine: no symptoms Hematologic / Lymphatic: no symptoms Allergic / Immunologic: no symptoms Past Medical History Past Medical History: Please refer to HPI Past Surgical History: Please refer to HPI Family History Diabetes mellitus FH: colon cancer Please refer to HPI Social History Please refer to HPI Hx Tobacco Use In Past Year?: Yes Smoking Status: Current Every Day Smoker Marital status: Housing status: lives with significant other Occupational Status: retired History of MDRO History of MDRO: No Allergies Coded Allergies: NO KNOWN DRUG ALLERGIES (Verified Allergy, Unknown, No known allergies, ) Current Medications Reported Home Medications Medications Dose Route/Sig Max Daily Dose Days Date Category Ibuprofen 200 Mg Cap 2 Cap PO BID 11/29/17 Reported Physical Physical Exam Vital Signs: Date Time Temp Pulse Resp B/P (MAP) Pulse Ox O2 Delivery O2 Flow Rate FiO2 12/01/17 00:05 Nasal Cannula 2.0 11/30/17 23:30 36.4 83 22 149/ (49) 90 Nasal Cannula 3.0 11/30/17 20:56 36.5 99 20 109/60 (76) 87 Nasal Cannula 3.0 11/30/17 20:05 Nasal Cannula 2.0 11/30/17 19:37 87 18 93 Nasal Cannula 2.0 11/30/17 16:00 92 Nasal Cannula 2.0 11/30/17 13:39 85 18 92 Nasal Cannula 2.0 11/30/17 12:00 Nasal Cannula 2.0 11/30/17 11:45 36.6 74 18 127/63 (84) 92 2.0 11/30/17 08:00 91 Nasal Cannula 2.0 11/30/17 07:52 113 18 91 Nasal Cannula 2.0 11/30/17 07:18 36.4 83 20 96/53 (67) 90 2.0 General Appearance: cachetic Head: NORMOCEPHALIC, ATRAUMATIC Eyes: PERRLA, NO DISCHARGE, EOMI, SCLERAE NORMAL ENT: NORMAL EAR EXAM, NORMAL MOUTH EXAM, NORMAL THROAT EXAM, other (Mild nasal erythema) Neck: NORMAL RANGE OF MOTION, NO TENDERNESS, TRACHEA MIDLINE, NO STRIDOR Respiratory: other (Bronchi bilaterally) Cardiovasular: REGULAR RATE/RHYTHM, NORMAL S1S2, NO M/G/R, NO MURMUR Abdomen: NON TENDER, NORMAL BOWEL SOUNDS, NO REBOUND, NO MASSES, NO GUARDING Genitourinary - Male: EXTERNAL GENITALIA NORMAL Back: NORMAL INSPECTION, NO MIDLINE TENDERNESS, NO CVA TENDERNESS, NO PARAVERTEBRAL TTP Upper Extremities: NO EDEMA, NO DEFORMITY, NORMAL ROM Lower Extremities: NO EDEMA, NO DEFORMITY, NORMAL ROM Pulses: carotid (R) (2+), carotid (L) (2+), dorsalis pedis (R) (2+), dorsalis pedis (L) (2+) Neuro: ALERT, ORIENTED x 3, NORMAL MOTOR EXAM, NORMAL SENSATION Reflexes: biceps (R) (2+), bicpes (L) (2+), patellar (R) (2+), patellar (L) (2+ ) Babinski Testing: right (downgoing), left (downgoing) Psychiatric: NORMAL AFFECT, NO SUICIDAL IDEATION, CONTRACTS FOR SAFETY Diagnostics Labs Results Past 24 Hours Test 12/01/17 04:44 Range/Units Diagnostic Radiology Please refer to HPI EKG Please refer to HPI Impression Assessment and Plan 72-year-old male admitted with progressive weight loss, shortness of breath and mediastinal adenopathy: 1. Mediastinal adenopathy: At this time I have spoken to the patient at length and have suggested we move forward with an EBUS evaluation of his mediastinum to help better define any underlying pathology. The patient is trying to speak to his daughter prior to moving forward as she is a nurse/tech in the medical field. I did attempt to contact the patient's family last night but was unable to.
[2017-12-01] MEDS: ALBUT/IPRATROP 3MG/0.5MG NEB 3 ML VIAL INH SCH ×4 (07:18→19:25)
[2017-12-01] MEDS: DOCUSATE SODIUM 100 MG CAP PO SCH ×2 (07:57→19:56)
[2017-12-01] MEDS: METHYLPREDNISOLONE IV 40 MG in SYRINGE 0 ML IV SCH ×3 (08:24→19:56)
[2017-12-01] MEDS: FLUTICASONE PROPIONATE NA SPR 16 GM BTL NAE SCH (08:25)
--- NOTE | 2017-12-01 08:55 | History & Physical Bridge Note ---
H&P Re-Evaluation Bridge Note: I have examined the patient, reviewed the History & Physical and in the interval since the performance of the History & Physical I have noted the following changes of clinical significance: No changes noted
[2017-12-01] MEDS ORDERED: FENTANYL CITRATE INJ 50 MCG/1 ML 2 ML VIAL ONE ×2 (12:40→13:53)
[2017-12-01] MEDS ORDERED: LIDOCAINE HCL 2% 2 ML VIAL (20MG/ML) ONE (12:40)
[2017-12-01] MEDS ORDERED: MIDAZOLAM HCL 1 MG/ML 2ML VIAL ONE (12:40)
[2017-12-01] MEDS ORDERED: ROCURONIUM BROMIDE 10 MG/ML 5 ML VIAL IV ONE (12:40)
[2017-12-01] MEDS ORDERED: ONDANSETRON INJ 2 MG/ML 2 ML VIAL ONE (12:40)
[2017-12-01] MEDS ORDERED: DEXAMETHASONE SOD INJ 4 MG/ML VIAL ONE ×2 (12:40→13:30)
[2017-12-01] MEDS ORDERED: PROPOFOL IV EMULSION 10 MG/ML 20 ML VIAL IV ONE ×2 (12:40→13:31)
--- NOTE | 2017-12-01 12:57 | Clinical Documentation Query ---
CLINICAL DOCUMENTATION QUERY Dr. ORELLANA, In your clinical opinion is this patient being managed for: (x ) severe protein-calorie malnutrition ( ) Not Agree ( ) Other explanation of clinical findings (Please Explain) ( ) Unable to determine (Please Define) ( ) Need to Discuss The medical record reflects the following clinical findings, treatment, and risk factors. Clinical Indicators: Pt reports approx 30 lb wt loss in the past 5-6 months. Reports no appetite/food does not taste right. Dietary consult indicates pt with >7.5% wt loss in the last 3 months with moderate loss of body fat and muscle mass. Described as cachectic. Treatment: dietary consult, monitor wts, I/O, labs, initiate snacks once NPO status lifted. Risk Factors: heavy tobacco use, age, COPD Severe Malnutrition Criteria: (2 criteria needed) Energy intake: <50% of estimated energy requirement for > 5 days Wt loss: 1-2% in 1 wk, 5% in 1 month, or 7.5% in 3 months Body fat: moderate loss of SQ fat from the orbits, triceps or fat overlying the ribs Muscle mass: moderate muscle wasting at the temples, clavicles, shoulders, interosseous spaces, scapula, thigh, calf Fluid accumulation: moderate to severe localized or generalized edema of the extremities, vulva, scrotum-wt loss may be masked by edema Drafting Teacher strength: measurably decreased per the devices standards Please clarify and document your clinical opinion in the progress notes and discharge summary. Terms such as "probable", "suspected", "likely", "questionable", "possible", or "still to be ruled out" are acceptable. IF IN AGREEMENT, YOU MUST DOCUMENT ABOVE DIAGNOSTIC STATEMENT IN DAILY PROGRESS NOTES AND DISCHARGE SUMMARY. This document is not part of the patient's record. Thank You, Zoraida Marion RN [phone]
[2017-12-01] MEDS ORDERED: ATROPINE SULFATE 0.1 MG/ML 5ML SYR IV PRN (13:00)
[2017-12-01] MEDS ORDERED: ONDANSETRON INJ 2 MG/ML 2 ML VIAL IV PRN (13:00)
[2017-12-01] MEDS ORDERED: EpHEDrine SULFATE INJ 50 MG/ML AMP IV PRN (13:00)
[2017-12-01] MEDS ORDERED: FENTANYL CITRATE INJ 50 MCG/1 ML 2 ML VIAL IV PRN (13:00)
--- NOTE | 2017-12-01 14:12 | Bronchoscopy Procedure Note ---
Bronchoscopy Procedure Note Procedure: Flexible-Bronchoscopy, EBUS, FNA, Tbbx, BAL Consent: Obtained through the patient placed into the chart Pre-Procedural Dx: Mediastinal adenopathy Post-Procedural Dx: Non-small cell lung cancer Analgesia: GETA Sedation: GETA Procedure: The Olympus video bronchoscope and EBUS scope were used for this procedure Initially the flexible bronchoscope was used for evaluation of the airways. An LMA was used for this procedure and properly positioned Vocal Cords: Anatomically WNL Sub-Glottis & Trachea: Anatomically WNL Harper: Anatomically within normal limits Right bronchial tree: Right mainstem bronchus: Anatomically within normal limits Right upper lobe: RB3 subsegment had small polypoid lesion at the takeoff Bronchus intermedius: Anatomically within normal limits Right middle lobe: Anatomically within normal limits Right lower lobe: Anatomically within normal limits Findings: Diffuse erythematous changes especially in the lower lobes bilaterally Left bronchial tree: Left mainstem bronchus: Anatomically within normal limits Left upper lobe: Anatomically within normal limits Lingula: Anatomically within normal limits Left lower lobe: Anatomically within normal limits Findings: Diffuse erythematous changes present in the lower lobes bilaterally EBUS/MARY: FNA Iliana Stations: 7, 4L, 10L, 11R BAL: Left lower lobe EBL: 4 cc Complications: None Follow-up: PACU
--- NOTE | 2017-12-01 14:54 | Anesthesiology Progress Note ---
Anesthesia Post Op Note Date & Time Dec 01, 2017 at 14:53 Vital Signs Pain Intensity: 0 Vital Signs Past 12 Hours Date Time Temp Pulse Resp B/P (MAP) Pulse Ox O2 Delivery O2 Flow Rate FiO2 12/01/17 14:50 88 16 122/62 98 Nasal Cannula 2 12/01/17 14:40 89 16 103/54 98 Oxymask 10 12/01/17 14:30 89 16 101/50 99 Oxymask 10 12/01/17 14:21 36.2 89 16 101/50 99 Oxymask 10 12/01/17 11:09 79 16 95 Nasal Cannula 1.0 12/01/17 08:20 Nasal Cannula 2.0 12/01/17 07:44 36.4 74 20 145/68 (93) 90 3.0 12/01/17 07:23 71 18 92 Room Air Notes Mental Status: alert / awake / arousable, participated in evaluation Pt Amnestic to Procedure: Yes Nausea / Vomiting: adequately controlled Pain: adequately controlled Airway Patency, RR, SpO2: stable & adequate BP & HR: stable & adequate Hydration State: stable & adequate Anesthetic Complications: no major complications apparent
--- NOTE | 2017-12-01 17:07 | Progress Note ---
Internal Med Progress Note Date of Service: Dec 01, 2017. Provider Documentation: SUBJECTIVE: had bronchoscopy done earlier frozen section shows possible small cell lung CA confirmatory pathology pending pt is sitting on chair no complain of SOB or wheeze , cough has improved no fever or chills requiring 2 02 via NC OBJECTIVE: Vital Signs-as noted below Exam: General-chronically ill-appearing male, cachectic Eyes-sclera nonicteric, pupils reactive to light ENT-moist oral mucosa Neck-no JVD, no carotid bruit noted Lungs-fairly poor air entry/diminished breath sound/no wheeze noted Heart-regular Abdomen-soft nontender bowel sounds active Extremities-no rash or deformity, no lower extremity Neuro-alert awake oriented 3, no focal neurological deficit Lab data as noted below. ASSESSMENT & PLAN: LUNG CA/ POSSIBLE NON-SMALL CELL CARCINOMA CT CHEST: No PE, Mediastinal and bilateral hilar lymphadenopathy raise concern for lymphoproliferative disease. No focal lung mass or nodule to suggest a lung primary with metastatic lymphadenopathy. Findings consistent with congestive change. No pulmonary edema. Congestive change may be result of lymphatic obstruction due to lymphadenopathy. had bronchoscopy done by Dr. Cervantes with EUS/FNA, and mediastinal lymph node biopsy t frozen section suggestive of non-small cell lung cancer Final pathology pending Patient has almost 56 years of heavy smoking history Finding of bronchoscopy to patient by pulmonology and myself for staging purpose MRI of the brain CT abdomen pelvis with contrast-will be ordered Patient will need oncology evaluation once final biopsy report available ACUTE RESPIRATORY FAILURE/HYPOXIA: Report of some respiratory distress, minimum dyspnea on exertion Requiring 2 L oxygen by nasal cannula due to combination of COPD exacerbation/acute bronchitis/lung malignancy Was hypoxic SPO2 88% in room air in ER Improved to 96% on 2L NC. Pt reports chronic cough and mucous and 55 year smoking hx. increased cough and mucous yesterday with increased SOB past 1-2 weeks. As needed ne Pulmonology consulted, HX OF LONG TIME HEAVY TOBACCO USE Smokes a pack of cigarettes for last 55 years current every day smoker Pt denies nicotine patch at this time -smoking cessation discussed SEVERE PROTEIN CALORIE MALNUTRITION Significant weight loss approximately 30 pounds in the past 4-6 months Reports very poor appetite Possible secondary to underlying metastatic malignancy Dietary/nutrition consult requested DVT Prophylaxis -Subcu Lovenox On hold for bronchoscopy/biop CODE STATUS full code DISPOSITION Expected to be discharged home when medically stable Will need to step exercise to assess for home oxygen PT OT evaluation requested Prior to discharge Medicine follow-up with Dr. Mejia at [facility]-pt have not seen the provider yet will need follow-up with hematology oncology as an outpatient Plan of care discussed with patient and family members at bedside Vital Signs: Date Time Temp Pulse Resp B/P (MAP) Pulse Ox O2 Delivery O2 Flow Rate FiO2 12/02/17 14:27 36.7 76 16 88 Room Air 12/02/17 11:28 76 16 88 Room Air 12/02/17 11:00 36.7 90 18 111/55 (73) 97 2.0 12/02/17 08:40 Room Air 12/02/17 07:28 73 16 92 Room Air 12/02/17 07:22 36.5 63 18 119/55 (76) 99 4.0 Lab Results: Results Past 24 Hours Test 12/02/17 14:31 Range/Units Prostate Specific Antigen > 76969.000 0.000-4.000 ng/ml
[2017-12-01] MEDS ORDERED: OPTIRAY 320 IV PRN (18:00)
--- NOTE | 2017-12-01 18:20 | DIAGNOSTIC IMAGING REPORT ---
BRAIN COMBO CLINICAL HISTORY: Diagnosed with IIIb lung CA evaluation for metastatic disease mental status change COMPARISON STUDY: No previous studies for comparison. TECHNIQUE: Utilizing a 1.5 Marsha magnet and dedicated coil, multiplanar, multiecho imaging of the brain was performed pre and postcontrast administration. IV administration of 7.4 mL of Gadavist contrast was uneventful. FINDINGS: Diffusion images are negative for an acute ischemic event. Minimal chronic small vessel change of aging. Signal characteristics are otherwise unremarkable throughout the cerebellar as well as cerebral hemispheres. No evidence for abnormal postcontrast enhancement. IMPRESSION: Negative MRI of the brain for age. The above report was generated using voice recognition software. It may contain grammatical, syntax or spelling errors. Electronically signed by: Paul Gotti M.D. 12/01/2017 6:18 PM Dictated Date/Time: 12/01/2017 6:16 PM
[2017-12-01] MEDS: POLYETHYLENE (MIRALAX) 17 GM PACK PO PRN (19:57)
[2017-12-02] VITALS (7 sets, daily range): BP systolic 111–137; BP diastolic 55–69; PULSE 63–90; TEMP 36.4–36.7; O2SAT 88–99
[2017-12-02] MEDS: METHYLPREDNISOLONE IV 40 MG in SYRINGE 0 ML IV SCH ×3 (02:25→14:47)
[2017-12-02] MEDS: ALBUT/IPRATROP 3MG/0.5MG NEB 3 ML VIAL INH SCH ×2 (07:24→11:23)
[2017-12-02] MEDS: DOCUSATE SODIUM 100 MG CAP PO SCH (08:37)
[2017-12-02] MEDS: FLUTICASONE PROPIONATE NA SPR 16 GM BTL NAE SCH (08:38)
[2017-12-02] MEDS ORDERED: OPTIRAY 320 IV PRN (10:00)
--- NOTE | 2017-12-02 11:46 | DIAGNOSTIC IMAGING REPORT ---
CT SCAN OF THE ABDOMEN AND PELVIS WITH IV CONTRAST CLINICAL HISTORY: Metastatic lung cancer. COMPARISON STUDY: Chest CT dated 11/29/2017. TECHNIQUE: Following the IV administration of 119 cc of Optiray 320, CT scan of the abdomen and pelvis is performed from the lung bases to the proximal femora. Images are reviewed in the axial, sagittal, and coronal planes. IV contrast was administered without complication. A dose lowering technique was utilized adhering to the principles of ALARA. The examination is significantly degraded by motion artifact. CT DOSE: 285.74 mGy.cm FINDINGS: Lung bases: The heart is mildly enlarged and without pericardial effusion. Emphysema is noted at the lung bases. No airspace consolidation or pleural effusion is identified. Intralobular septal thickening and nodularity is seen in the lower lobes. Peribronchial thickening is identified. Liver: The contrast-enhanced liver is normal in size, contour, and attenuation. There is no intrahepatic biliary ductal dilatation. The hepatic veins and portal veins are patent. Gallbladder: Unremarkable. Spleen: Normal in size and attenuation, measuring 11.9 cm and length. Pancreas: Atrophic and grossly unremarkable. Adrenal glands: Unremarkable. Kidneys: The horseshoe kidney is noted. The contrast enhanced renal moieties demonstrate cortical atrophy, asymmetrically greater on the left. There is moderate hydroureteronephrosis of the left renal moiety, with the ureter dilated into the pelvis. No hydronephrosis is seen on the right. There is heterogeneously diminished perfusion of the left renal moiety as compared to the right. Abdominal vasculature: The abdominal aorta is normal in course and caliber noting moderate atherosclerotic calcification. Bowel: There is mild/moderate colonic fecal retention. No bowel obstruction is seen. The appendix is not identified. Peritoneum: There is no intraperitoneal free air or abdominal ascites. Lymphadenopathy: There is bulky retroperitoneal and iliac chain lymphadenopathy. There are also enlarged left inguinal nodes. A retrocaval node on image #119 measures 3.3 x 2.3 cm. A right iliac chain node on image #264 measures 3.6 x 2.5 cm, and a right external iliac chain node on image #334 measures 3.3 x 2.5 cm. A left inguinal node on image #392 measures 2.3 x 1.9 cm. Pelvic viscera: The prostate gland is enlarged and heterogeneous, measuring 4.7 cm transverse diameter. There is median lobe hypertrophy. The bladder wall is thickened and trabeculated suggesting chronic outlet obstruction. The left psoas muscle appears mildly enlarged and edematous. Skeletal structures: The skeletal structures are osteopenic. 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 Lesions are seen throughout the lumbar spine, the sacrum, the bony pelvis, and in the right proximal femur. There is a mild compression deformity of L2, likely pathologic. IMPRESSION: 1. Motion compromised examination 2. There is bulky retroperitoneal, pelvic sidewall, and left inguinal lymphadenopathy. The appearance is consistent with metastatic disease. The appearance is not typical for the reported clinical history of lung cancer. The appearance is more suggestive of a lymphoproliferative disorder or possibly prostate cancer. Clinical and laboratory correlation will be essential. 3. There is evidence of multifocal osteoblastic metastatic disease. A mild superior endplate compression deformity of L2 is likely pathologic. 4. Prostatomegaly with evidence of chronic bladder outlet obstruction. 5. A horseshoe kidney is noted. 6. There is moderate hydroureteronephrosis of the left renal moiety. The left ureter is dilated into the pelvis, and this may be related to mass effect from lymphadenopathy. Follow-up with urology is recommended. 7. The left psoas muscle appears enlarged and edematous as compared to the right. This could represent metastatic involvement or less likely hematoma versus infection. Clinical correlation will be essential. 8. Additional findings as above. Electronically signed by: Oleg Olmstead M.D. 12/02/2017 11:45 AM Dictated Date/Time: 12/02/2017 11:28 AM
[2017-12-02] MEDS: POLYETHYLENE (MIRALAX) 17 GM PACK PO PRN (12:27)
[2017-12-02] MEDS ORDERED: CLC100 PO (13:20)
[2017-12-02] MEDS ORDERED: MRLP17X PO (13:20)
[2017-12-02] MEDS ORDERED: OXYC1TAB3 PO (13:23)
--- NOTE | 2017-12-02 13:25 | Discharge Instructions ---
Discharge Instructions Date of Service Dec 02, 2017. Admission Reason for Admission: Bronchitis, Hypoxia Discharge Discharge Diagnosis / Problem: METASTATIC LUNG CANCER /ACUTE RESPIRATORY FAILURE /BACK PAIN Discharge Goals Goal(s): Improve disease control, Diagnostic testing, Therapeutic intervention Activity Recommendations Activity Limitations: as noted below . Instructions / Follow-Up Instructions / Follow-Up HOSPITAL FOLLOW UP : ON 12/04/2017 @ 3:[address] Angella Arredondo MD General Internal Medicine [facility] ONCOLOGY FOLLOW UP WITH DR SUSHMA BONNER IN 1-2 WEEKS, [facility] OFFICE WILL CALL WITH APPOINTMENT DO NOT TAKE IBUPROFEN , ADVIL , ALEVE, MOTRIN , NAPROXEN -AVOID NSAID'S TAKE TYLENOL NEEDED TAKE OXYCODONE NEEDED FOR SEVERE PAIN PLEASE NOTIFY YOUR FAMILY PHYSICIAN IF BACK PAIN IS GETTING WORSE /NO PAIN CONTROL ACHIEVED WITH PAIN MEDS DO NOT DRIVE AFTER TAKING OXYCODONE PAIN MEDICATIONS CAN LEAD TO SEVERE CONSTIPATION TAKE STOOL SOFTENER-OVER THE COUNTER -COLACE/MIRALAX / DULCOLAX ETC TO PREVENT CONSTIPATION Current Hospital Diet Patient's current hospital diet: Regular Diet Discharge Diet Recommended Diet: Regular Diet Procedures Procedures Performed: Flexible Bronchoscopy, Endobronchial Ultrasound, Trans-Tracheal/Bronchial Needle Aspiration, Transbronchial Forcep-Biopsy, Bronchial Lavage Pending Studies Studies pending at discharge: yes List of pending studies: PSA LEVEL -RESULT DR BONNER WILL UPDATE THE RESULT ON OFFICE VISIT Medical Emergencies . Who to Call and When: Medical Emergencies: If at any time you feel your situation is an emergency, please call 911 immediately. . Non-Emergent Contact Non-Emergency issues call your: Primary Care Provider Call Non-Emergent contact if: your pain is not controlled, your pain is worsening, your pain is unusual for you, your pain is concerning you . . "Provider Documentation" section prepared by Lidia Terrazas. .
[2017-12-02] MEDS ORDERED: METH4PAK PO (14:02)
[2017-12-02] MEDS ORDERED: PRVHFAIN INH (14:16)
--- NOTE | 2017-12-02 14:17 | Discharge Summary ---
Discharge Summary Date of Service Dec 02, 2017. Discharge Summary Admission Date: Nov 29, 2017 at 21:04 Discharge Date: Dec 02, 2017 Discharge Disposition: Home Principal Diagnosis: METASTATIC LUNG CANCER /ACUTE RESPIRATORY FAILURE /BACK PAIN DUE TO BONE METASTASES Procedures: Procedures Performed: Flexible Bronchoscopy, Endobronchial Ultrasound, Trans-Tracheal/Bronchial Needle Aspiration, Transbronchial Forcep-Biopsy, Bronchial Lavage Consultations: Pulmonology Medication Reconciliation New Medications: Albuterol (Ventolin Hfa) 60 Puffs/5400 Mcg Aers 2 PUFFS INH Q4 PRN for SOB/Wheezing, #1 INHALER 3 Refills Methylprednisolone (Medrol Dosepak) 4 Mg Jay 1 TAB PO UD, #1 PKT Oxycodone Ir (Roxicodone Ir) 5 Mg Tab 1-2 TAB PO Q4H PRN for Severe Pain, #12 TAB Docusate Sodium (Docusate Sodium) 100 Mg Cap 100 MG PO BID for 30 Days, CAP OVER THE COUNTER CONTINUE TO TAKE STOOL SOFTENER WHEN TAKING NARCOTIC PAIN MEDS TO PREVENT CONSTIPATION Polyethylene (Miralax) 17 Gm Pow 17 GM PO DAILY PRN for Constipation for 30 Days CONTINUE TO TAKE TO PREVENT CONSTIPATION WHEN TAKING PAIN MEDS Discontinued Medications: Ibuprofen (Ibuprofen) 200 Mg Cap 2 CAP PO BID for Pain Referrals At Discharge Follow up Referrals: Oncology/Hematology Referral - Within 1-2 Weeks with Sushma Vicente M.D. Physician Referral - 12/04/17 with Angella ARREDONDO M.D. Admission Information HPI (per Admitting provider): Pt is a 72-year-old male history tobacco abuse presented to ER with c/o cough and shortness of breath. Patient reports for 6-12 months has been having mucus and cough sometimes productive pale yellow. States yesterday started with increased mucus and coughing and had a coughing spell with increased shortness of breath and felt anxious and reports he hyperventilated. Feels increased shortness of breath with rest since yesterday. Patient reports shortness of breath with walking approximately 30 feet for past several weeks. Past 2 weeks feels like having some weakness with walking in using furniture in the house. Denies any falls. Patient reports chronic right nasal congestion, rhinorrhea in which he uses Dristan (oxymetazoline) every night. Patient smokes 1 pack a day 65 years. Denies known COPD dx. He does not go to Dr regularly. He reports 30 pound weight loss since 02/2017. He reports decreased appetite past year. Has BM every other day. Last BM 2 days ago. Reports history colonoscopy every 3 years secondary to polyps. Last colonoscopy 02/2017. Reports once had bright red blood on stool after straining to have BM but this has not occurred recently. Denies melena, hematochezia recently. Denies fever/chills, diaphoresis, N/V/D, COOPER, dizziness, syncope, vision changes , neck pain, CP, orthopnea, PND, palpitations, hemoptysis, sore throat, otalgia , epistaxis, abdominal pain, paresthesias, extremity edema, rashes, dysuria, hematuria, urinary retention. Physical Exam (per Admitting): General Appearance: no apparent distress, + thin Head: normocephalic, atraumatic Eyes: normal inspection, PERRL, sclerae normal ENT: hearing grossly normal, pharynx normal, + pertinent finding (mucous membranes moist) Neck: supple, trachea midline Respiratory/Chest: no respiratory distress, no accessory muscle use, + rhonchi (bases bilaterally, no rales or wheezing noted) Cardiovascular: regular rate, rhythm, no murmur, normal peripheral pulses Abdomen/GI: normal bowel sounds, non tender, soft Extremities/Musculoskelatal: normal capillary refill, no pedal edema, non- tender Neurologic/Psych: alert, normal mood/affect, oriented x 3 Skin: normal color, warm/dry Hospital Course Patient denies of any discomfort, no shortness of breath, no cough Findings of MRI of brain and CT abdomen pelvis updated to patient and family Initially patient was reluctant to any further oncology follow-up secondary to widespread metastases, did not want any further chemoradiation treatment Patient have not seen any physician for last more than 20 years Willing to have a clinic evaluation with oncology Dr. Vicente 2 step exercise done shows patient needs 2 L oxygen on ambulation Social service updated and arrangement made for home O2 Exam: General-chronically ill-appearing male, appears to be cachectic Eyes-sclera nonicteric, pupils reactive to light ENT-moist oral mucosa Neck-no JVD, no carotid bruit noted Lungs-fairly poor air entry/diminished breath sound/no wheeze noted Heart-regular Abdomen-soft nontender bowel sounds active Extremities-no rash or deformity, no lower extremity Neuro-alert awake oriented 3, no focal neurological deficit LUNG CA/ POSSIBLE NON-SMALL CELL CARCINOMA CT CHEST: No PE, Mediastinal and bilateral hilar lymphadenopathy raise concern for lymphoproliferative disease. No focal lung mass or nodule to suggest a lung primary with metastatic lymphadenopathy. Findings consistent with congestive change. No pulmonary edema. Congestive change may be result of lymphatic obstruction due to lymphadenopathy. had bronchoscopy done by Dr. Cervantes with EUS/FNA, and mediastinal lymph node biopsy t frozen section suggestive of non-small cell lung cancer Final pathology pending Patient has almost 56 years of heavy smoking history MRI of the brain: Shows normal study CT abdomen pelvis with contrast- 1. Motion compromised examination 2. There is bulky retroperitoneal, pelvic sidewall, and left inguinal lymphadenopathy. The appearance is consistent with metastatic disease. The appearance is not typical for the reported clinical history of lung cancer. The appearance is more suggestive of a lymphoproliferative disorder or possibly prostate cancer. Clinical and laboratory correlation will be essential. 3. There is evidence of multifocal osteoblastic metastatic disease. A mild superior endplate compression deformity of L2 is likely pathologic. 4. Prostatomegaly with evidence of chronic bladder outlet obstruction. 5. A horseshoe kidney is noted. 6. There is moderate hydroureteronephrosis of the left renal moiety. The left ureter is dilated into the pelvis, and this may be related to mass effect from lymphadenopathy. Follow-up with urology is recommended. 7. The left psoas muscle appears enlarged and edematous as compared to the right. This could represent metastatic involvement or less likely hematoma versus infection. Clinical correlation will be essential. Plan of care discussed with hematology oncology Dr. Vicente Outpatient appointment will be scheduled by hematology ACUTE RESPIRATORY FAILURE/HYPOXIA: Report of some respiratory distress, minimum dyspnea on exertion Requiring 2 L oxygen by nasal cannula due to combination of COPD exacerbation/acute bronchitis/lung malignancy Was hypoxic SPO2 88% in room air in ER Improved to 96% on 2L NC. Echo: * No regional wall motion abnormalities noted. * The left ventricle is hyperdynamic. * The left ventricular ejection fraction = >70 %. * The right ventricle is normal in size and function. * Aortic valve sclerosis mild, without significant aortic valvular stenosis. * Doppler findings do not suggest pulmonary hypertension. * Grade I diastolic dysfunction, (abnormal relaxation pattern). Two-step pulse oximetry shows patient requires 2 L oxygen via nasal cannula on ambulation only Arrangements made for home O2 Pulmonology consulted, HX OF LONG TIME HEAVY TOBACCO USE Smokes a pack of cigarettes for last 55 years current every day smoker Pt denies nicotine patch at this time -smoking cessation discussed SEVERE PROTEIN CALORIE MALNUTRITION Significant weight loss approximately 30 pounds in the past 4-6 months Reports very poor appetite Possible secondary to underlying metastatic malignancy Dietary/nutrition consult requested DVT Prophylaxis -Subcu Lovenox On hold for bronchoscopy/biopy CODE STATUS full code DISPOSITION Discharged home today Medicine follow-up scheduled with Dr. Arredondo at [facility]-( unable to get an appointment in [facility] within a week) Oncology follow-up Jules Total time spent on discharge = 40m byin This includes examination of the patient, discharge planning, medication reconciliation, and communication with other providers. Discharge Instructions Discharge Instructions Date of Service Dec 02, 2017. Admission Reason for Admission: Bronchitis, Hypoxia Discharge Discharge Diagnosis / Problem: METASTATIC LUNG CANCER /ACUTE RESPIRATORY FAILURE /BACK PAIN Discharge Goals Goal(s): Improve disease control, Diagnostic testing, Therapeutic intervention Activity Recommendations Activity Limitations: as noted below . Instructions / Follow-Up Instructions / Follow-Up HOSPITAL FOLLOW UP : ON 12/04/2017 @ 3:[address] Angella Arredondo MD General Internal Medicine [facility] ONCOLOGY FOLLOW UP WITH DR SUSHMA VICENTE IN 1-2 WEEKS, [facility] OFFICE WILL CALL WITH APPOINTMENT DO NOT TAKE IBUPROFEN , ADVIL , ALEVE, MOTRIN , NAPROXEN -AVOID NSAID'S TAKE TYLENOL NEEDED TAKE OXYCODONE NEEDED FOR SEVERE PAIN PLEASE NOTIFY YOUR FAMILY PHYSICIAN IF BACK PAIN IS GETTING WORSE /NO PAIN CONTROL ACHIEVED WITH PAIN MEDS DO NOT DRIVE AFTER TAKING OXYCODONE PAIN MEDICATIONS CAN LEAD TO SEVERE CONSTIPATION TAKE STOOL SOFTENER-OVER THE COUNTER -COLACE/MIRALAX / DULCOLAX ETC TO PREVENT CONSTIPATION Current Hospital Diet Patient's current hospital diet: Regular Diet Discharge Diet Recommended Diet: Regular Diet Procedures Procedures Performed: Flexible Bronchoscopy, Endobronchial Ultrasound, Trans-Tracheal/Bronchial Needle Aspiration, Transbronchial Forcep-Biopsy, Bronchial Lavage Pending Studies Studies pending at discharge: yes List of pending studies: PSA LEVEL -RESULT DR VICENTE WILL UPDATE THE RESULT ON OFFICE VISIT Medical Emergencies . Who to Call and When: Medical Emergencies: If at any time you feel your situation is an emergency, please call 911 immediately. . Non-Emergent Contact Non-Emergency issues call your: Primary Care Provider Call Non-Emergent contact if: your pain is not controlled, your pain is worsening, your pain is unusual for you, your pain is concerning you . . "Provider Documentation" section prepared by Lidia Terrazas. . Additional Copies To Aneglla ARREDONDO M.D. Patel, Nilesh A., M.D.
--- NOTE | 2017-12-03 14:50 | Progress Note ---
Progress Note Date of Service Dec 03, 2017. Progress Note ATTENDING NOTE : PSA LEVEL ELEVATED > 10,000 suggestive of prostate Ca with possible wide spread intra abdominal mets with bone mets result updated to daughter updated report to Heme onc Dr Jareth Vicente has out pt follow up with Dr Vicente next week
== END 2017-12-02 15:00 | disposition home or self-care (01) | DRG 166 ==
LOC: C.EDB 16:05 → C.MED 21:04 → ENRESERV 21:17 → C.MS4W 11-30 20:30
PROVIDERS: ADMIT Hospitalist; ATTEND Hospitalist
PROC: 0B9J8ZX Drainage of Left Lower Lung Lobe, Via Natural or Artificial Opening Endoscopic, Diagnostic (ICD-10-PCS; principal; 2017-12-01 13:00)
DX: J44.1 Chronic obstructive pulmonary disease with (acute) exacerbation (principal); J96.01 Acute respiratory failure with hypoxia; E43 Unspecified severe protein-calorie malnutrition; J44.0 Chronic obstructive pulmonary disease with (acute) lower respiratory infection; J20.9 Acute bronchitis, unspecified; F17.200 Nicotine dependence, unspecified, uncomplicated; R59.0 Localized enlarged lymph nodes; Z87.19 Personal history of other diseases of the digestive system; Z83.3 Family history of diabetes mellitus; Z80.0 Family history of malignant neoplasm of digestive organs

== ENCOUNTER 2020-12-23 09:37 | Inpatient (IN) ==
[2020-12-23] MEDS ORDERED: SODIUM CHLORIDE 0.9% 1000ML 1,000 ML IV ONE (10:17)
[2020-12-23 10:36] LABS: Basophils # (auto) 0.04 K/uL (0-0.2); Basophils % (auto) 0.5 %; Eosinophils # (auto) 0.04 K/uL (0-0.5); Eosinophils % (auto) 0.5 %; Hematocrit (blood only) 33.1 % (42-52); Hemoglobin 11.3 g/dL (14.0-18.0); Immature Granulocytes # (auto) 0.01 K/uL (0.00-0.02); Immature Granulocytes % (auto) 0.1 %; Lymphocytes # (auto) 0.65 K/uL (1.2-3.4); Lymphocytes % (auto) 7.4 %; Mean Corpuscular Hemoglobin 32.8 pg (25-34); Mean Corpuscular Hgb Conc 34.1 g/dL (32-36); Mean Corpuscular Volume 96.2 fL (80-100); Mean Platelet Volume 9.2 fL (7.4-10.4); Monocytes # (auto) 0.52 K/uL (0.11-0.59); Monocytes % (auto) 5.9 %; Neutrophils # (auto) 7.48 K/uL (1.4-6.5); Neutrophils % (auto) 85.6 %; Platelet Count 252 K/uL (130-400); RDW Coefficient of Variation 13.4 % (11.5-14.5); Red Blood Count 3.44 M/uL (4.7-6.1); White Blood Count 8.74 K/uL (4.8-10.8)
[2020-12-23 10:50] LABS: iSTAT Creatinine 1.1 mg/dl (0.6-1.3); iSTAT Hemoglobin 10.9 g/dl (14.0-18.0); iSTAT Ionized Calcium 1.07 mmol/l (1.12-1.32); iSTAT Potassium 3.8 mmol/L (3.3-5.0)
[2020-12-23 10:53] LABS: Alanine Aminotransferase 13 U/L (12-78); Albumin Level 2.6 gm/dl (3.4-5.0); Aspartate Aminotransferase 15 U/L (15-37); BUN Creatinine Ratio 16.4 (10-20); Blood Urea Nitrogen 17 mg/dl (7-18); Calcium 7.9 mg/dl (8.5-10.1); Carbon Dioxide 30 mmol/L (21-32); Chloride 105 mmol/L (98-107); Creatinine Clr Calc Pharmacy 72.8 ml/min; Est GFR (African American) 81.2; Est GFR (Non-African American) 70.1; Glucose 137 mg/dl (70-99); Potassium 3.9 mmol/L (3.5-5.1); Sodium 137 mmol/L (136-145)
[2020-12-23 11:04] LABS: Albumin Globulin Ratio 0.7 (0.9-2); Alkaline Phosphatase 65 U/L (45-117); Bilirubin,Total 0.7 mg/dl (0.2-1); Creatine Kinase 73 U/L (39-308); Creatine Kinase MB < 1.0 ng/ml (0.5-3.6); Globulin 3.9 gm/dl (2.5-4.0); Total Protein 6.5 gm/dl (6.4-8.2); Troponin I < 0.015 ng/ml (0-0.045)
--- NOTE | 2020-12-23 11:30 | XRay Report ---
XR femur LT 2V routine CLINICAL HISTORY: Left lower leg/knee pain COMPARISON: X-ray knee dated 12/20/2020 DISCUSSION: There are quadriceps insertional patellar calcification. There is a small suprapatellar j oint effusion. No acute fractures are visualized. There are sclerotic changes involving the left michelle c bone and ischial. The findings are consistent with metastatic disease. There are also sclerotic ying nges involving the right symphysis pubis.. IMPRESSION: 1. No acute fractures or dislocations 2. Small suprapatellar joint effusion 3. Multifocal sclerotic bone within the visualized pelvis consistent with skeletal metastasis ACT 112: Negative or not required by law. Electronically signed by: Morris Elizondo M.D. 12/23/2020 11:29 AM
--- NOTE | 2020-12-23 11:30 | XRay Report ---
XR chest 1V portable CLINICAL HISTORY: Weakness. History of lung cancer. COMPARISON STUDY: Chest CT 04/30/2019. FINDINGS: Lung volumes are normal. Lungs are clear. There is no pneumothorax or pleural effusion. Car diac size is normal. Mediastinal contours are normal. There is no evidence for pulmonary edema. Multi ple skeletal metastases are better depicted on the prior chest CT. IMPRESSION: No acute cardiopulmonary findings. ACT 112: Negative or not required by law. Electronically signed by: Dagoberto Wiggins M.D. 12/23/2020 11:29 AM
--- NOTE | 2020-12-23 11:37 | XRay Report ---
XR pelvis 1-2V routine HISTORY: 75 years-old Male Pt c/o left knee pain acute pelvic and left hip pain COMPARISON: CT left femur of same day, CT abdomen pelvis 12/26/2019 TECHNIQUE: AP view the pelvis FINDINGS: Mild osteoporosis of the bilateral hips. No acute fracture, dislocation or avascular necrosis. Multif ocal osteoblastic skeletal metastasis redemonstrated. No associated pathologic fracture. Unremarkable soft tissues. IMPRESSION: 1. No acute fracture. 2. Multifocal osteoblastic skeletal metastasis redemonstrated. ACT 112: Negative or not required by law. The above report was generated using voice recognition software. It may contain grammatical, syntax o r spelling errors. Electronically signed by: Salvador Maxwell M.D. 12/23/2020 11:36 AM
[2020-12-23] MEDS ORDERED: fentaNYL 50 MCG/HR TDSY TD STA (12:03)
[2020-12-23 12:30] LABS: Appearance Urine Turbid (Clear); Bilirubin Urine Negative (Negative); Blood Urine Trace (Negative); Color Urine Dark Yellow; Epithelial Cell Urine Auto >30 /lpf (0-5); Glucose Urine UA Negative (Negative); Ketones Urine 1+ (Negative); Leukocyte Esterase Urine 1+ (Negative); Nitrite Urine Negative (Negative); Protein Urine 1+ (Negative); RBC Urine Automated 0-4 /hpf (0-4); Specific Gravity Urine 1.024 (1.000-1.030); Urobilinogen Urine Negative (Negative); WBC Urine Automated >30 /hpf (0-5)
[2020-12-23 12:47] LABS: Amorphous Sediment Urine Present (None Prsent); Bacteria Urine Automated 1+ (Negative)
--- NOTE | 2020-12-23 13:18 | History & Physical Report ---
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 Denies loss control of bowel/bladder. Has had decreased oral intake. In ER afebrile, initial BP: 85/69 up to 124/65 DDX: orthostatic hypotension, opioids or combination, brain mets, arrhythmia CT Head: no acute findings -Obtain orthostatic vitals -Tele to monitor for arrhythmias -Carotid doppler -Echo -May need to consider MRI or neuro consult if no improvement or recurrent symptoms (2) Hypotension: In ER initial BP: 85/69 up to 124/65 after 1L NSS Likely secondary to poor oral intake and possible opioids -IVF -Monitor closely, as Fentanyl patch was increased from 37mcg to 50mcg in ER today. (3) Effusion, left knee: Left knee edema and pain for past 10 days after prolonged kneeling on floor Xray knee from 12/20/20: No acute fracture. No suspicious osseous lesion by radiography. Small left knee joint effusion. DDX: synovitis, bursitis, septic joint however pt without fever, without skin erythema or leukocytosis -Obtain ESR, CRP -MRI L knee -Continue pt's fentanyl patch and oxycodone for pain. Pt unable to take NSAIDs -Ortho consult (4) Prostate cancer metastatic to multiple sites: Prostate cancer with metastasis to bone and lung. S/p radiation. Follows with Dr. Vicente. On Lupron Zytiga, prednisone 5 mg daily -Fentanyl patch was increased from 37mcg to 50mcg in ER today. We will continue this secondary to patient's increased pain in hopes he will not require as much oxycodone for breakthrough pain -Continue Zytiga, Prednisone (5) CKD (chronic kidney disease), stage III: Cr: 1.0. baseline Cr: 1-1.2 -Monitor renal functions, avoid nephrotoxic agents when possible (6) COPD (chronic obstructive pulmonary disease): No signs acute exacerbation -Continue home inhalers, nebs prn DVT Prophylaxis -Lovenox DNR/DNI as per discussion with pt Follows with Dr Mejia for routine care Pt was seen and care coordinated with Dr Carmona. See addendum History of Present Illness Chief Complaint: Syncope Primary Care Provider: Jorge Mejia MD Pt is 75 y/o M with PMH prostate cancer with metastasis to bone and lung, COPD, CKD III, anxiety presented to ER with complaint of syncopal episodes. Patient states for the past month has been having lightheadedness with standing and walking. Reports today was walking using walker when became diaphoretic, family was able to get patient to chair and he had syncopal episode for approximately 1 minute per patient's daughter. Denies loss control bowel or bladder. Patient states remember not feeling well when he was walking but does not remember the syncopal episode. Daughter reports patient also had fallen yesterday when he got up out of a chair and patient does not remember how he fell. Couple of days ago patient was walking from bathroom when he had become diaphoretic and then fallen into his bed. Daughter is unsure if patient had complete syncopal episode at that time. Denies any loss of control of bowel or bladder, chest pain, shortness of breath. Patient reports past 3 weeks has not had any appetite and has not been eating or drinking well. 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 Patient states initially knee had some red coloration which resolved after 2 days, however pain and swelling has persisted. He is on 37 mcg fentanyl patch chronically and has oxycodone 5 mg to use for breakthrough pain which he typically does not need, however past several days has been needing to use his o xycodone 2-3 times a day. He has been having difficulty ambulating secondary to knee pain. He is seen at [facility] ER on 12/20/2020 and had x-ray of left knee showing effusion and septic joint was not suspected at that time. He was also seen by PCP and referred to Ortho and has MRI knee ordered for 12/31/2020. Patient denies any fevers, chills. Past week with constipation, is passing flatus denies any abdominal pain. Denies fever/chills, diaphoresis, N/V/D, COOPER, dizziness, vision changes, neck pain, orthopnea, palpitations, cough, sore throat, choking, otalgia, rhinorrhea, abdominal pain, paresthesias, weakness, extremity weakness, other extremity edema, rashes, urinary retention, urinary frequency, hematuria. Allergies Allergy/AdvReac Type Severity Reaction Status Date / Time No Known Drug Allergies Allergy Unknown No known Verified 12/23/20 10:47 allergies Home Medications Medication Instructions Recorded Confirmed Type docusate sodium 100 mg capsule 100 mg PO DAILY cap 04/26/19 12/23/20 History fentanyl 25 mcg/hr transdermal 1 patch TD Q72H 04/26/19 12/23/20 History patch polyethylene glycol 3350 17 17 g PO DAILY PRN gm 04/26/19 12/23/20 History gram/dose oral powder tiotropium bromide 2.5 2 puffs INHALATION DAILY #1 gm 04/26/19 12/23/20 History mcg/actuation mist for inhalation abiraterone 250 mg tablet 1,000 mg PO DAILY 03/10/20 12/23/20 History cholecalciferol (vitamin D3) 25 25 mcg PO DAILY 03/10/20 12/23/20 History mcg (1,000 unit) capsule lorazepam 0.5 mg tablet 0.5 mg PO TID PRN 03/10/20 12/23/20 History oxycodone 5 mg tablet 5 mg PO Q8H PRN 03/10/20 12/23/20 History prednisone 5 mg tablet 5 mg PO DAILY 03/10/20 12/23/20 History fentanyl 12 mcg/hr transdermal 1 patch TRANSDERMAL Q72H 07/31/20 12/23/20 History patch calcium 1,000 mg PO DAILY 12/20/20 12/23/20 History ipratropium-albuterol 3 ml INHALATION Q6 PRN 12/20/20 12/23/20 History ondansetron HCl 8 mg PO Q8 PRN 12/20/20 12/23/20 History sod phos di, mono-K phos mono 1 tab PO BID 12/20/20 12/23/20 History [K-Ocpy-Repljkw] temazepam 7.5 mg PO HS PRN 12/20/20 12/23/20 History Past Med/Surg History Medical History CKD (chronic kidney disease), stage III COPD (chronic obstructive pulmonary disease) History of bronchitis Hx of colonic polyps "adenomatous polyp" Hypoxia History of; has 2L oxygen to use HS and prn Pancytopenia PNA (pneumonia) Prostate cancer, primary, with metastasis from prostate to other site Bone, lung Surgical History History of appendectomy In 2nd grade History of colonoscopy 2017 History of tonsillectomy in 9th grade Family History Father , Passed age 64 of colon cancer No problems noted. Mother , Passed age 90 of alzheimers disease No problems noted. Sister , Passed age 62 of "female cancer" Colon cancer, Onset Age: 55 Sister No problems noted. Son No problems noted. Daughter No problems noted. Daughter No problems noted. Daughter No problems noted. 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 [employer] Other Information That Helps Us Care for You: No Feels Safe at Home: Yes caffeine: Yes (1 cup of coffee/day ) Dental Care, Regularly: Yes Assistive Devices: Glasses Review of Systems Review of Systems: All systems reviewed & are unremarkable except as noted in HPI & below Physical Exam Physical Exam: General: no distress, moderately developed, moderately nourished Head: normocephalic, atraumatic Eyes: PERRL, EOM's intact, conjunctiva non-injected, anicteric ENT: normal inspection external ears, nose, mucous membranes dry Neck: supple, trachea midline Lungs: clear, no respiratory distress, no wheezing/rhonchi/rales CV: RRR, no murmur, no pretibial edema Abd: normal BS, soft, non-tender Ext: no cyanosis, no calf tenderness; left knee: +edema +tenderness to palpation anterior knee. No erythema, limited flexion of knee, distal pulses palpable Neuro: A&O x 3, no focal deficits noted, normal affect Skin: warm, dry Results & Data Results & Data ([facility]) Vital Signs (Past 12 Hours) Vital Signs Temp Pulse Pulse Resp BP BP Pulse Ox 12/23/20 12:00 77 21 124/65 12/23/20 11:50 74 25 H 12/23/20 11:40 73 25 H 12/23/20 11:30 76 24 116/51 L 12/23/20 11:23 76 19 99 12/23/20 11:21 76 17 114/53 L 96 12/23/20 10:40 79 23 95 12/23/20 10:30 80 16 105/38 L 96 12/23/20 10:20 80 21 98 12/23/20 10:10 80 20 98 12/23/20 10:01 80 18 123/43 L 96 12/23/20 10:00 81 27 H 123/43 L 95 12/23/20 09:50 81 17 97 12/23/20 09:48 77 19 96 12/23/20 09:44 36.9 C 79 18 85/69 L 97 12/23/20 09:42 80 17 85/69 L 98 Laboratory Results Short CBC 12/23/20 Range/Units 10: WBC 8.74 (4.8-10.8) K/uL Hgb 11.3 L (14.0-18.0) g/dL Hct 33.1 L (42-52) % Plt Count 252 (130-400) K/uL BMP 12/23/20 10:21 Sodium 137 Potassium 3.9 Chloride 105 Carbon Dioxide 30 BUN 17 Creatinine 1.05 Glucose 137 H Calcium 7.9 L Cardiac Enzymes 12/23/20 Range/Units 10:21 Total Creatine Kinase 73 (39-308) U/L CK-MB (CK-2) < 1.0 (0.5-3.6) ng/ml Troponin I < 0.015 (0-0.045) ng/ml Liver Function 12/23/20 Range/Units 10:21 Total Bilirubin 0.7 (0.2-1) mg/dl AST 15 (15-37) U/L ALT 13 (12-78) U/L Alkaline Phosphatase 65 (45-117) U/L Albumin 2.6 L (3.4-5.0) gm/dl Urine 12/23/20 Range/Units 12:20 Urine Color Dark Yellow Urine Appearance Turbid A (Clear) Urine pH 6.0 (4.5-7.5) Ur Specific [place] 1.024 (1.000-1.030) Urine Protein 1+ H (Negative) Urine Glucose (UA) Negative (Negative) Diagnostic Findings Chest X-Ray 12/23/20 10:16 XR chest 1V portable CLINICAL HISTORY: Weakness. History of lung cancer. COMPARISON STUDY: Chest CT 04/30/2019. FINDINGS: Lung volumes are normal. Lungs are clear. There is no pneumothorax or pleural effusion. Cardiac size is normal. Mediastinal contours are normal. There is no evidence for pulmonary edema. Multiple skeletal metastases are better depicted on the prior chest CT. IMPRESSION: No acute cardiopulmonary findings. ACT 112: Negative or not required by law. Electronically signed by: Dagoberto Wiggins M.D. 12/23/2020 11:29 AM Femur X-Ray 12/23/20 10:18 XR femur LT 2V routine CLINICAL HISTORY: Left lower leg/knee pain COMPARISON: X-ray knee dated 12/20/2020 DISCUSSION: There are quadriceps insertional patellar calcification. There is a small suprapatellar joint effusion. No acute fractures are visualized. There are sclerotic changes involving the left iliac bone and ischial. The findings are consistent with metastatic disease. There are also sclerotic changes involving the right symphysis pubis.. IMPRESSION: 1. No acute fractures or dislocations 2. Small suprapatellar joint effusion 3. Multifocal sclerotic bone within the visualized pelvis consistent with skeletal metastasis ACT 112: Negative or not required by law. Electronically signed by: Morris Elizondo M.D. 12/23/2020 11:29 AM Pelvis X-Ray 12/23/20 10:18 XR pelvis 1-2V routine HISTORY: 75 years-old Male Pt c/o left knee pain acute pelvic and left hip pain COMPARISON: CT left femur of same day, CT abdomen pelvis 12/26/2019 TECHNIQUE: AP view the pelvis FINDINGS: Mild osteoporosis of the bilateral hips. No acute fracture, dislocation or avascular necrosis. Multifocal osteoblastic skeletal metastasis redemonstrated. No associated pathologic fracture. Unremarkable soft tissues. IMPRESSION: 1. No acute fracture. 2. Multifocal osteoblastic skeletal metastasis redemonstrated. ACT 112: Negative or not required by law. The above report was generated using voice recognition software. It may contain grammatical, syntax or spelling errors. Electronically signed by: Salvador Maxwell M.D. 12/23/2020 11:[address] 12/23/20 12:47 CT OF THE HEAD WITHOUT CONTRAST CLINICAL HISTORY: Syncope. History of lung cancer. COMPARISON STUDY: MRI of the brain December 01, 2017. CT DOSE: 614.27 mGy.cm TECHNIQUE: Helical axial images of the head were obtained without IV contrast. Automated exposure control was utilized for the study. A dose lowering technique was utilized adhering to the principles of ALARA. FINDINGS: No acute intracranial hemorrhage, midline shift or mass effect is present. The ventricular system is stable. The basal cisterns are patent. No extra-axial collections are present. There are no findings to suggest acute dural sinus thrombosis or acute territorial infarct. No significant calvarial abnormalities are present. Visualized portions of the sinuses and mastoid air cells are clear. IMPRESSION: No acute intracranial findings. ACT 112: Negative or not required by law. Electronically signed by: Dagoberto Wiggins M.D. 12/23/2020 1:37 PM Carotid Doppler Study 12/23/20 15:36 ULTRASOUND OF THE CAROTID ARTERIES CLINICAL HISTORY: Syncope.. COMPARISON STUDY: No priors. TECHNIQUE: Real-time, grayscale, and color Doppler sonography of the carotid arteries is performed. Images are reviewed in the transverse and longitudinal planes. FINDINGS: Blood pressure in the right arm measures 140/75 and blood pressure in the left arm measures 135/70. The carotid arteries are patent bilaterally and demonstrate antegrade flow. There is mild atherosclerotic plaque seen bilaterally. Normal doppler arterial waveforms are seen throughout. Minimally elevated velocities within the mid left internal carotid artery are likely artifactual. Velocity measurements are listed below. Common carotid peak systolic velocity (cm/sec): RIGHT: 75 LEFT: 68 ICA proximal peak systolic velocity (cm/sec): RIGHT: 93 LEFT: 109 ICA mid peak systolic velocity (cm/sec): RIGHT: 102 LEFT: 136 ICA distal peak systolic velocity (cm/sec): RIGHT: 104 LEFT: 121 ICA/CC peak systolic ratio: RIGHT: 1.4 LEFT: 2.0 Antegrade flow was shown in the vertebral arteries. The external carotid arteries are patent. IMPRESSION: 1. There is no sonographic evidence of hemodynamically significant stenosis in the right or left carotid arterial system. 2. Antegrade flow is shown in the vertebral arteries. ACT 112: Negative or not required by law. Electronically signed by: Oleg Olmstead M.D. 12/23/2020 4:46 PM Code Status & VTE Plan VTE Prophylaxis Plan VTE Prophylaxis will be ordered: Yes Supervising Physician Co-Signing Physician Notes Patient is a 75-year-old male with history of metastatic prostate cancer, COPD, CKD and other medical problems presents with history of syncopal episode. He reports having ongoing dizziness since 1 month duration. Patient unable to recollect the events from syncopal episode this morning. He states having constipation and his last bowel movement was about 1 week ago. He admits to having poor appetite since past 3 weeks. He noticed to have left knee swelling associated with pain, decreased range of movement since 10 days duration which has been gradually worsening. Please review HPI for complete details of presentation. Urine analysis suggestive of possible urinary tract infection. CT head showed no acute intracranial abnormality. Exam patient is moderately built and nourished, no apparent distress, normocephalic atraumatic, lungs- decreased breath sounds, clear to auscultation, S1-S2, no murmur, no pedal edema, abdomen soft, nontender, normal bowel sounds, alert, awake, oriented, grossly no focal deficits, left knee swelling, tenderness on exam noted. Patient is admitted for evaluation of syncopal episode and left knee pain associated with swelling. Will obtain orthostatics, carotid ultrasound, echo and monitor on telemetry. Will obtain an MRI of left knee consult orthopedics for further evaluation. We will also check ESR, CRP. Will empirically start on Rocephin for possible urinary tract infection. Start on bowel regimen for constipation. PT OT requested for evaluation. I personally reviewed the record. Patient is interviewed and examined at bedside. Patient's care is coordinated with Ana Nixon PA-C. Please refer to the documentation above for details of patient's presentation and for discussion of other issues.
[2020-12-23 13:36] LABS: Influenza A virus by PCR Negative (Neg); Influenza B virus by PCR Negative (Neg); RSV by PCR Negative (Neg); SARS CoV2 RNA(COVID-19) InHosp NEGATIVE (Negative)
--- NOTE | 2020-12-23 13:38 | CT Scan Report ---
CT OF THE HEAD WITHOUT CONTRAST CLINICAL HISTORY: Syncope. History of lung cancer. COMPARISON STUDY: MRI of the brain December 01, 2017. CT DOSE: 614.27 mGy.cm TECHNIQUE: Helical axial images of the head were obtained without IV contrast. Automated exposure con trol was utilized for the study. A dose lowering technique was utilized adhering to the principles o f ALARA. FINDINGS: No acute intracranial hemorrhage, midline shift or mass effect is present. The ventricular system is stable. The basal cisterns are patent. No extra-axial collections are present. There are no findings to suggest acute dural sinus thrombosis or acute territorial infarct. No significant calvar ial abnormalities are present. Visualized portions of the sinuses and mastoid air cells are clear. IMPRESSION: No acute intracranial findings. ACT 112: Negative or not required by law. Electronically signed by: Dagoberto Wiggins M.D. 12/23/2020 1:37 PM
--- NOTE | 2020-12-23 14:08 | Emergency Department Note ---
Impression & Plan Syncope, Hypotension, Effusion, left knee ED Provider Note NAME: TRINA ANTHONY AGE: 75 SEX: M : 1945 ARRIVES VIA: Ambulance INFORMANT: Patient, ED PROVIDER(S): Jean Claude Mccoy MD CHIEF COMPLAINT: syncope HPI: This is a 75-year-old male who presents emergency department complaining of syncopal episode x2. The patient reports he feels a sensation like he is going to pass out and then needs to either sit down or the other day he fell to the side. He reports he has been having severe left knee pain. He has been following up with orthopedics for the knee pain and is to have an MRI scheduled as an outpatient. The patient has a history of prostate cancer with metastasis and is currently on fentanyl patches however he reports he is still having the knee pain. He reports the knee pain is so severe he feels like it is causing him to pass out. He describes the pain as an aching sensation with no radiation. He has been taking oxycodone as well as fentanyl for the pain with no relief. He reports movement makes the pain worse however rest makes it somewhat better. ROS: See above HPI for pertinent positives & negatives. A total of 10 systems reviewed and were otherwise negative. PAST MEDICAL HISTORY: See Below PAST SURGICAL HISTORY: See Below FAMILY HISTORY: See Below SOCIAL HISTORY: See Below HOME MEDICATIONS: See Below ALLERGIES: See Below VITALS: See Below PHYSICAL EXAMINATION: VITAL SIGNS - Vital signs and nursing notes were reviewed. GENERAL - 75-year-old male appearing stated age who is in no acute distress. Communicates well with provider and answers questions appropriately. SKIN - Without rashes. HEAD - NC/AT. EYES - PERRL with EOMI bilaterally. Sclera anicteric. Palpebral conjunctiva pink and moist with no injection noted. EARS - No deformities of external structures noted on gross examination bilaterally. NOSE - Midline and without cyanosis. No epistaxis or purulent drainage noted. Septum midline without deviation or septal hematoma noted. MOUTH/OROPHARYNX - Without perioral cyanosis. Buccal mucosa pink and moist and without leukoplakia. Tongue midline with equal elevation of palate bilaterally. No tonsillar hypertrophy, erythema, or exudates noted. NECK - Neck with FROM. Supple to palpation. No nuchal rigidity. LUNGS - Chest wall symmetric without accessory muscle use, intercostals retractions, or central cyanosis. Normal vesicular breath sounds CTA B/L. No wheezes, rales, or rhonchi appreciated. CARDIAC - RRR with S1/S2. No murmur, rubs, or gallops appreciated. ABDOMEN - Abdominal contour without pulsations or visible masses. BS normoactive all four quadrants. No tenderness, palpable masses, hepatosple nomegaly, or ascites noted. EXTREMITIES - No clubbing or peripheral cyanosis. No pretibial edema present. +3/5 radial, posterior tibial, and dorsalis pedis pulses palpated throughout. +5/5 strength noted in UE/LE bilaterally. NEUROLOGIC - Cranial nerves II through XII grossly intact. Sensory intact to light touch throughout. Patellar reflexes +2/4. PSYCH - A&Ox3 and cooperates fully with examiner. Pt is very pleasant and interacts well with examiner. MEDICAL DECISION MAKING: Patient was seen and evaluated as above in room C2. Review was performed of nursing notes and vital signs. I did review pertinent previous visits and patient history. After obtaining a thorough history and physical examination the above work up was performed. This 75-year-old male who presents emergency department complaining of multiple syncopal episodes. The patient's hemoglobin is at his baseline. His creatinine is normal however I am concerned with his orthostasis that he is going to pass out again and extremely hurt himself. I did discuss the case with the hospitalist service who did agree to meet the patient. Patient and family are in agreement with treatment plan.6 An order was placed for continuous cardiac monitoring. The monitor shows a rate of 98 with Normal SInus rhythm. The patient was evaluated during a period of high volume and high acuity during the global COVID-19 pandemic, and that diagnosis was suspected/considered upon their initial presentation. Their evaluation, treatment and testing was consistent with current guidelines for patients who present with complaints or symptoms that may be related to COVID-19. Patient was seen while provider was wearing PPE. Triage Nursing notes reviewed. Prior medical records reviewed Vital Signs: reviewed and remarkable for no significant abnormalities Differential diagnosis: Infection, dehydration, metabolic abnormality, hypo/hyperglycemia, electrolyte disturbance, anemia, hypoxia, cardiac sources, intracerebral event, toxicologic, neurologic, as well as other pathologies. ER treatment provided: See below Diagnostics interpreted by me: ECG: Normal sinus rhythm normal EKG QTC is 458 ventricular rate of [address] elevation or depression Laboratory studies: As stated above and show below. Imaging studies: See below Consultation(s): Internal [facility] Past Med/Surg History Medical History CKD (chronic kidney disease), stage III COPD (chronic obstructive pulmonary disease) History of bronchitis Hx of colonic polyps "adenomatous polyp" Hypoxia History of; has 2L oxygen to use HS and prn Pancytopenia PNA (pneumonia) Prostate cancer, primary, with metastasis from prostate to other site Bone, lung Surgical History History of appendectomy In 2nd grade History of colonoscopy 2017 History of tonsillectomy in 9th grade Family History Father , Passed age 64 of colon cancer No problems noted. Mother , Passed age 90 of alzheimers disease No problems noted. Sister , Passed age 62 of "female cancer" Colon cancer, Onset Age: 55 Sister No problems noted. Son No problems noted. Daughter No problems noted. Daughter No problems noted. Daughter No problems noted. Social History Smoking Status: Current every day smoker Tobacco Type: Cigarettes packs per day: 0.5; Years Smoked: 57; Cigarettes Per Day: .5; Second Hand Exposure: No; Do You Dip or Chew Tobacco: No; Hx Alcohol Use: No Hx Substance Use: No Preferred Language: Romanian Communication Ability: Effective Visual Impairment: Limited Hearing Ability: Hard of Hearing Compliance Clerk Required: No Beliefs That Will Affect Care: None marital status: Current Living Situation: Family current occupational status: retired current occupation: Retired [employer] of [employer] Other Information That Helps Us Care for You: No Feels Safe at Home: Yes caffeine: Yes (1 cup of coffee/day ) Dental Care, Regularly: Yes Assistive Devices: Walker Allergies Allergies Allergy/AdvReac Type Severity Reaction Status Date / Time acetaminophen [From Tylenol] Allergy Hives Verified 12/24/20 19:41 Home Meds Home Medications Medication Instructions Recorded Confirmed docusate sodium 100 mg capsule 100 mg PO DAILY cap 04/26/19 12/23/20 fentanyl 25 mcg/hr transdermal 1 patch TD Q72H 04/26/19 12/23/20 patch polyethylene glycol 3350 17 17 g PO DAILY PRN gm 04/26/19 12/23/20 gram/dose oral powder tiotropium bromide 2.5 2 puffs INHALATION DAILY #1 gm 04/26/19 12/23/20 mcg/actuation mist for inhalation abiraterone 250 mg tablet 1,000 mg PO DAILY 03/10/20 12/23/20 cholecalciferol (vitamin D3) 25 25 mcg PO DAILY 03/10/20 12/23/20 mcg (1,000 unit) capsule lorazepam 0.5 mg tablet 0.5 mg PO TID PRN 03/10/20 12/23/20 oxycodone 5 mg tablet 5 mg PO Q8H PRN 03/10/20 12/23/20 prednisone 5 mg tablet 5 mg PO DAILY 03/10/20 12/23/20 fentanyl 12 mcg/hr transdermal 1 patch TRANSDERMAL Q72H 07/31/20 12/23/20 patch calcium 1,000 mg PO DAILY 12/20/20 12/23/20 ipratropium-albuterol 3 ml INHALATION Q6 PRN 12/20/20 12/23/20 ondansetron HCl 8 mg PO Q8 PRN 12/20/20 12/23/20 sod phos di, mono-K phos mono 1 tab PO BID 12/20/20 12/23/20 [A-Ggkx-Iuryass] temazepam 7.5 mg PO HS PRN 12/20/20 12/23/20 Results & Data (ED) Vital Signs Vital Signs - 24 hr 12/23/20 09:42 12/23/20 09:44 12/23/20 09:48 Temperature 36.9 C Temperature Source Oral Pulse Rate 80 79 77 Pulse Rate [Apical] Pulse Rate from SpO2 Sensor 80 78 Respiratory Rate 17 18 19 Respiratory Effort / Characteristics Non-Labored Respiratory Depth Normal Blood Pressure 85/69 L 85/69 L Blood Pressure [Right Arm] Blood Pressure Mean 74 74 Blood Pressure Mean [Right Arm] Pulse Oximetry 98 97 96 Oxygen Delivery Method Room Air Room Air Room Air Sepsis Recent Fever Within 48 Hours No Sepsis New/Unexplained Change in Mental Status No Sepsis Action Taken by Nursing No Action Required 12/23/20 09:50 12/23/20 10:00 12/23/20 10:01 Temperature Temperature Source Pulse Rate 81 81 Pulse Rate [Apical] 80 Pulse Rate from SpO2 Sensor 80 81 Respiratory Rate 17 27 H 18 Respiratory Effort / Characteristics Respiratory Depth Blood Pressure 123/43 L Blood Pressure [Right Arm] 123/43 L Blood Pressure Mean 69 Blood Pressure Mean [Right Arm] 69 Pulse Oximetry 97 95 96 Oxygen Delivery Method Room Air Room Air Room Air Sepsis Recent Fever Within 48 Hours Sepsis New/Unexplained Change in Mental Status Sepsis Action Taken by Nursing 12/23/20 10:10 12/23/20 10:16 12/23/20 10:20 Temperature Temperature Source Pulse Rate 80 80 Pulse Rate [Apical] Pulse Rate from SpO2 Sensor 80 80 Respiratory Rate 20 21 Respiratory Effort / Characteristics Respiratory Depth Blood Pressure Blood Pressure [Right Arm] Blood Pressure Mean Blood Pressure Mean [Right Arm] Pulse Oximetry 98 98 Oxygen Delivery Method Room Air Room Air Room Air Sepsis Recent Fever Within 48 Hours Sepsis New/Unexplained Change in Mental Status Sepsis Action Taken by Nursing 12/23/20 10:30 12/23/20 10:40 12/23/20 11:21 Temperature Temperature Source Pulse Rate 80 79 76 Pulse Rate [Apical] Pulse Rate from SpO2 Sensor 80 80 77 Respiratory Rate 16 23 17 Respiratory Effort / Characteristics Respiratory Depth Blood Pressure 105/38 L 114/53 L Blood Pressure [Right Arm] Blood Pressure Mean 60 73 Blood Pressure Mean [Right Arm] Pulse Oximetry 96 95 96 Oxygen Delivery Method Room Air Room Air Room Air Sepsis Recent Fever Within 48 Hours Sepsis New/Unexplained Change in Mental Status Sepsis Action Taken by Nursing 12/23/20 11:23 12/23/20 11:30 12/23/20 11:40 Temperature Temperature Source Pulse Rate 76 76 73 Pulse Rate [Apical] Pulse Rate from SpO2 Sensor 76 Respiratory Rate 19 24 25 H Respiratory Effort / Characteristics Respiratory Depth Blood Pressure 116/51 L Blood Pressure [Right Arm] Blood Pressure Mean 72 Blood Pressure Mean [Right Arm] Pulse Oximetry 99 Oxygen Delivery Method Room Air Room Air Room Air Sepsis Recent Fever Within 48 Hours Sepsis New/Unexplained Change in Mental Status Sepsis Action Taken by Nursing 12/23/20 11:50 12/23/20 12:00 Temperature Temperature Source Pulse Rate 74 77 Pulse Rate [Apical] Pulse Rate from SpO2 Sensor Respiratory Rate 25 H 21 Respiratory Effort / Characteristics Respiratory Depth Blood Pressure 124/65 Blood Pressure [Right Arm] Blood Pressure Mean 84 Blood Pressure Mean [Right Arm] Pulse Oximetry Oxygen Delivery Method Room Air Room Air Sepsis Recent Fever Within 48 Hours Sepsis New/Unexplained Change in Mental Status Sepsis Action Taken by Nursing Laboratory Data Result diagrams: 12/25/20 05:19 12/25/20 05:19 Lab Results 12/23/20 12/23/20 12/23/20 Range/Units 10:21 10:21 10:21 WBC 8.74 (4.8-10.8) K/uL RBC 3.44 L (4.7-6.1) M/uL Hgb 11.3 L (14.0-18.0) g/dL POC Hgb (14.0-18.0) g/dl Hct 33.1 L (42-52) % POC Hct (42-52) % MCV 96.2 (80-100) fL MCH 32.8 (25-34) pg MCHC 34.1 (32-36) g/dL RDW Std Deviation 47.0 H (36.4-46.3) fL RDW Coeff of Taylor 13.4 (11.5-14.5) % Plt Count 252 (130-400) K/uL MPV 9.2 (7.4-10.4) fL Immature Gran % (Auto) 0.1 % Neut % (Auto) 85.6 % Lymph % (Auto) 7.4 % Brooke % (Auto) 5.9 % Eos % (Auto) 0.5 % Baso % (Auto) 0.5 % Neut # (Auto) 7.48 H (1.4-6.5) K/uL Lymph # (Auto) 0.65 L (1.2-3.4) K/uL Brooke # (Auto) 0.52 (0.11-0.59) K/uL Eos # (Auto) 0.04 (0-0.5) K/uL Baso # (Auto) 0.04 (0-0.2) K/uL Immature Gran # (Auto) 0.01 (0.00-0.02) K/uL ESR 47 H (0-20) mm/hr POC Sodium (135-144) mmol/L Sodium 137 (136-145) mmol/L POC Potassium (3.3-5.0) mmol/L Potassium 3.9 (3.5-5.1) mmol/L POC Chloride (101-112) mmol/L Chloride 105 (98-107) mmol/L Carbon Dioxide 30 (21-32) mmol/L POC Total CO2 (24-31) mmol/L Anion Gap 2.0 L (3-11) POC Anion Gap (16-25) mmol/L POC BUN (7-18) mg/dl BUN 17 (7-18) mg/dl Creatinine 1.05 (0.6-1.4) mg/dl POC Creatinine (0.6-1.3) mg/dl Est Cr Clr Drug Dosing 72.8 ml/min Est GFR ( Amer) 81.2 Est GFR (Non-Af Amer) 70.1 BUN/Creatinine Ratio 16.4 (10-20) Glucose 137 H (70-99) mg/dl POC Glucose (other) (70-99) mg/dl Calcium 7.9 L (8.5-10.1) mg/dl POC Ioniz Calcium Edis (1.12-1.32) mmol/l Total Bilirubin 0.7 (0.2-1) mg/dl AST 15 (15-37) U/L ALT 13 (12-78) U/L Alkaline Phosphatase 65 (45-117) U/L Total Creatine Kinase 73 (39-308) U/L CK-MB (CK-2) < 1.0 (0.5-3.6) ng/ml CK/CKMB % Calc TNP Troponin I < 0.015 (0-0.045) ng/ml C-Reactive Protein (0-0.29) mg/dl Total Protein 6.5 (6.4-8.2) gm/dl Albumin 2.6 L (3.4-5.0) gm/dl Globulin 3.9 (2.5-4.0) gm/dl Albumin/Globulin Ratio 0.7 L (0.9-2) TSH 1.720 (0.300-4.500) uIu/ml Urine Color Urine Appearance (Clear) Urine pH (4.5-7.5) Ur Specific [place] (1.000-1.030) Urine Protein (Negative) Urine Glucose (UA) (Negative) Urine Ketones (Negative) Urine Blood (Negative) Urine Nitrite (Negative) Urine Bilirubin (Negative) Urine Urobilinogen (Negative) Ur Leukocyte Esterase (Negative) Urine WBC (Auto) (0-5) /hpf Urine RBC (Auto) (0-4) /hpf U Hyaline Cast (Auto) (0-5) /lpf U Epithel Cells (Auto) (0-5) /lpf Urine Bacteria (Auto) (Negative) Ur Renal Epithelial Cell Amorphous Sediment (None Prsent) COVID-19 Eval Order SARS-CoV-2 (PCR) (Negative) Influenza Type A (PCR) (Neg) Influenza Type B (PCR) (Neg) RSV (RT-PCR) (Neg) 12/23/20 12/23/20 12/23/20 Range/Units 10:21 10:32 12:20 WBC (4.8-10.8) K/uL RBC (4.7-6.1) M/uL Hgb (14.0-18.0) g/dL POC Hgb 10.9 L (14.0-18.0) g/dl Hct (42-52) % POC Hct 32 L (42-52) % MCV (80-100) fL MCH (25-34) pg MCHC (32-36) g/dL RDW Std Deviation (36.4-46.3) fL RDW Coeff of Taylor (11.5-14.5) % Plt Count (130-400) K/uL MPV (7.4-10.4) fL Immature Gran % (Auto) % Neut % (Auto) % Lymph % (Auto) % Brooke % (Auto) % Eos % (Auto) % Baso % (Auto) % Neut # (Auto) (1.4-6.5) K/uL Lymph # (Auto) (1.2-3.4) K/uL Brooke # (Auto) (0.11-0.59) K/uL Eos # (Auto) (0-0.5) K/uL Baso # (Auto) (0-0.2) K/uL Immature Gran # (Auto) (0.00-0.02) K/uL ESR (0-20) mm/hr POC Sodium 135 (135-144) mmol/L Sodium (136-145) mmol/L POC Potassium 3.8 (3.3-5.0) mmol/L Potassium (3.5-5.1) mmol/L POC Chloride 99 L (101-112) mmol/L Chloride (98-107) mmol/L Carbon Dioxide (21-32) mmol/L POC Total CO2 27 (24-31) mmol/L Anion Gap (3-11) POC Anion Gap 15.0 L (16-25) mmol/L POC BUN 16 (7-18) mg/dl BUN (7-18) mg/dl Creatinine (0.6-1.4) mg/dl POC Creatinine 1.1 (0.6-1.3) mg/dl Est Cr Clr Drug Dosing ml/min Est GFR ( Amer) Est GFR (Non-Af Amer) BUN/Creatinine Ratio (10-20) Glucose (70-99) mg/dl POC Glucose (other) 135 H (70-99) mg/dl Calcium (8.5-10.1) mg/dl POC Ioniz Calcium Edis 1.07 L (1.12-1.32) mmol/l Total Bilirubin (0.2-1) mg/dl AST (15-37) U/L ALT (12-78) U/L Alkaline Phosphatase (45-117) U/L Total Creatine Kinase (39-308) U/L CK-MB (CK-2) (0.5-3.6) ng/ml CK/CKMB % Calc Troponin I (0-0.045) ng/ml C-Reactive Protein 15.40 H (0-0.29) mg/dl Total Protein (6.4-8.2) gm/dl Albumin (3.4-5.0) gm/dl Globulin (2.5-4.0) gm/dl Albumin/Globulin Ratio (0.9-2) TSH (0.300-4.500) uIu/ml Urine Color Dark Yellow Urine Appearance Turbid A (Clear) Urine pH 6.0 (4.5-7.5) Ur Specific [place] 1.024 (1.000-1.030) Urine Protein 1+ H (Negative) Urine Glucose (UA) Negative (Negative) Urine Ketones 1+ H (Negative) Urine Blood Trace H (Negative) Urine Nitrite Negative (Negative) Urine Bilirubin Negative (Negative) Urine Urobilinogen Negative (Negative) Ur Leukocyte Esterase 1+ H (Negative) Urine WBC (Auto) >30 H (0-5) /hpf Urine RBC (Auto) 0-4 (0-4) /hpf U Hyaline Cast (Auto) 1-5 (0-5) /lpf U Epithel Cells (Auto) >30 H (0-5) /lpf Urine Bacteria (Auto) 1+ H (Negative) Ur Renal Epithelial Cell Not Reportable Amorphous Sediment Present A (None Prsent) COVID-19 Eval Order SARS-CoV-2 (PCR) (Negative) Influenza Type A (PCR) (Neg) Influenza Type B (PCR) (Neg) RSV (RT-PCR) (Neg) 12/23/20 12/23/20 Range/Units 12:44 12:44 WBC (4.8-10.8) K/uL RBC (4.7-6.1) M/uL Hgb (14.0-18.0) g/dL POC Hgb (14.0-18.0) g/dl Hct (42-52) % POC Hct (42-52) % MCV (80-100) fL MCH (25-34) pg MCHC (32-36) g/dL RDW Std Deviation (36.4-46.3) fL RDW Coeff of Taylor (11.5-14.5) % Plt Count (130-400) K/uL MPV (7.4-10.4) fL Immature Gran % (Auto) % Neut % (Auto) % Lymph % (Auto) % Brooke % (Auto) % Eos % (Auto) % Baso % (Auto) % Neut # (Auto) (1.4-6.5) K/uL Lymph # (Auto) (1.2-3.4) K/uL Brooke # (Auto) (0.11-0.59) K/uL Eos # (Auto) (0-0.5) K/uL Baso # (Auto) (0-0.2) K/uL Immature Gran # (Auto) (0.00-0.02) K/uL ESR (0-20) mm/hr POC Sodium (135-144) mmol/L Sodium (136-145) mmol/L POC Potassium (3.3-5.0) mmol/L Potassium (3.5-5.1) mmol/L POC Chloride (101-112) mmol/L Chloride (98-107) mmol/L Carbon Dioxide (21-32) mmol/L POC Total CO2 (24-31) mmol/L Anion Gap (3-11) POC Anion Gap (16-25) mmol/L POC BUN (7-18) mg/dl BUN (7-18) mg/dl Creatinine (0.6-1.4) mg/dl POC Creatinine (0.6-1.3) mg/dl Est Cr Clr Drug Dosing ml/min Est GFR ( Amer) Est GFR (Non-Af Amer) BUN/Creatinine Ratio (10-20) Glucose (70-99) mg/dl POC Glucose (other) (70-99) mg/dl Calcium (8.5-10.1) mg/dl POC Ioniz Calcium Edis (1.12-1.32) mmol/l Total Bilirubin (0.2-1) mg/dl AST (15-37) U/L ALT (12-78) U/L Alkaline Phosphatase (45-117) U/L Total Creatine Kinase (39-308) U/L CK-MB (CK-2) (0.5-3.6) ng/ml CK/CKMB % Calc Troponin I (0-0.045) ng/ml C-Reactive Protein (0-0.29) mg/dl Total Protein (6.4-8.2) gm/dl Albumin (3.4-5.0) gm/dl Globulin (2.5-4.0) gm/dl Albumin/Globulin Ratio (0.9-2) TSH (0.300-4.500) uIu/ml Urine Color Urine Appearance (Clear) Urine pH (4.5-7.5) Ur Specific [place] (1.000-1.030) Urine Protein (Negative) Urine Glucose (UA) (Negative) Urine Ketones (Negative) Urine Blood (Negative) Urine Nitrite (Negative) Urine Bilirubin (Negative) Urine Urobilinogen (Negative) Ur Leukocyte Esterase (Negative) Urine WBC (Auto) (0-5) /hpf Urine RBC (Auto) (0-4) /hpf U Hyaline Cast (Auto) (0-5) /lpf U Epithel Cells (Auto) (0-5) /lpf Urine Bacteria (Auto) (Negative) Ur Renal Epithelial Cell Amorphous Sediment (None Prsent) COVID-19 Eval Order [facility] at [facility] SARS-CoV-2 (PCR) NEGATIVE (Negative) Influenza Type A (PCR) Negative (Neg) Influenza Type B (PCR) Negative (Neg) RSV (RT-PCR) Negative (Neg) Administered Medications Abiraterone Acetate (Abiraterone Acetate) 4 ea PO DAILY@0100 [facility] Stop: 01/23/21 00:59 Last Admin: 12/25/20 00:46 Dose: 4 ea Documented by: [id number] Cosigned by: [id number] Admin: 12/24/20 01:18 Dose: 4 ea Documented by: [id number] Cosigned by: [id number] Bisacodyl (Bisacodyl 5 Mg Tabec) 5 mg PO DAILY [facility] Stop: 01/23/21 13:29 Last Admin: 12/25/20 09:36 Dose: 5 mg Documented by: [id number] Admin: 12/24/20 14:39 Dose: 5 mg Documented by: [id number] Calcium Carbonate (Calcium Carbonate 1250mg Tab) 1,250 mg PO DAILY [facility] Stop: 01/23/21 08:59 Last Admin: 12/25/20 07:45 Dose: 1,250 mg Documented by: [id number] Admin: 12/24/20 08:44 Dose: 1,250 mg Documented by: [id number] Docusate Sodium (Docusate Sodium 100 Mg Cap) 100 mg PO BID [facility] Stop: 01/22/21 20:59 Last Admin: 12/25/20 09:36 Dose: 100 mg Documented by: [id number] Admin: 12/24/20 20:17 Dose: Not Given Documented by: [id number] Admin: 12/24/20 08:40 Dose: 100 mg Documented by: [id number] Admin: 12/23/20 21:03 Dose: 100 mg Documented by: [id number] Enoxaparin Sodium (Enoxaparin Inj 40 Mg/0.4 Ml Syr) 40 mg SQ Q24H [facility] Stop: 01/22/21 15:59 Last Admin: 12/23/20 18:36 Dose: 40 mg Documented by: [id number] Ceftriaxone Sodium 2,000 mg/ (Dextrose) 70 mls @ 100 mls/hr IV DAILY@1900 [facility]; Protocol Stop: 12/28/20 19:14 Last Infusion: 12/24/20 22:00 Dose: 0 mls/hr Documented by: [id number] Admin: 12/24/20 20:20 Dose: 100 mls/hr Documented by: [id number] Infusion: 12/23/20 21:51 Dose: 0 mls/hr Documented by: [id number] Admin: 12/23/20 21:01 Dose: 100 mls/hr Documented by: [id number] Vancomycin HCl 1,000 mg/ (Sodium Chloride) 270 mls @ 200 mls/hr IV Q8H [facility] Stop: 02/05/21 01:59 Last Infusion: 12/25/20 12:20 Dose: 0 mls/hr Documented by: [id number] Admin: 12/25/20 10:27 Dose: 150 mls/hr Documented by: [id number] Infusion: 12/25/20 03:20 Dose: 0 mls/hr Documented by: [id number] Admin: 12/25/20 01:59 Dose: 200 mls/hr Documented by: [id number] Miscellaneous (Check Fentanyl Patch Placement) 1 ea N/A QS [facility] Stop: 01/22/21 15:59 Last Admin: 12/25/20 17:35 Dose: 1 ea Documented by: [id number] Admin: 12/25/20 07:46 Dose: 1 ea Documented by: [id number] Admin: 12/25/20 00:01 Dose: 1 ea Documented by: [id number] Admin: 12/24/20 15:38 Dose: 1 ea Documented by: [id number] Admin: 12/24/20 09:20 Dose: 1 ea Documented by: [id number] Admin: 12/24/20 01:21 Dose: 1 ea Documented by: [id number] Admin: 12/23/20 16:44 Dose: 1 ea Documented by: [id number] Miscellaneous (Remove Nicoderm Patch) 1 ea N/A DAILY@0859 [facility] Stop: 01/24/21 08:58 Last Admin: 12/25/20 07:46 Dose: 1 ea Documented by: [id number] Nicotine (Nicotine 21 Mg/24 Hr Tdsy) 21 mg TD QAM [facility] Stop: 01/23/21 18:59 Last Admin: 12/25/20 07:46 Dose: 21 mg Documented by: [id number] Admin: 12/24/20 19:23 Dose: 21 mg Documented by: [id number] Oxycodone HCl (Oxycodone Hcl Ir 5 Mg Tab (Immediate Release)) 5 mg PO Q8H PRN PRN Reason: Pain Stop: 01/06/21 15:54 Last Admin: 12/25/20 09:36 Dose: 5 mg Documented by: [id number] Admin: 12/24/20 20:17 Dose: 5 mg Documented by: [id number] Admin: 12/24/20 08:40 Dose: 5 mg Documented by: [id number] Admin: 12/23/20 16:51 Dose: 5 mg Documented by: [id number] Polyethylene Glycol (Polyethylene (Miralax) 17 Gm Pack) 17 gm PO BID [facility] Stop: 01/23/21 20:59 Last Admin: 12/25/20 07:46 Dose: 17 gm Documented by: [id number] Admin: 12/24/20 20:16 Dose: Not Given Documented by: [id number] Potassium Phosphate (Pot Phosphate Monobasic W/ Sod Tab) 1 tab PO BID [facility] Stop: 01/22/21 20:59 Last Admin: 12/25/20 07:45 Dose: 1 tab Documented by: [id number] Admin: 12/24/20 20:18 Dose: 1 tab Documented by: [id number] Admin: 12/24/20 08:44 Dose: 1 tab Documented by: [id number] Admin: 12/23/20 21:03 Dose: 1 tab Documented by: [id number] Prednisone (Prednisone 5 Mg Tab) 5 mg PO DAILY@0100 [facility] Stop: 01/23/21 00:59 Last Admin: 12/25/20 00:47 Dose: 5 mg Documented by: [id number] Admin: 12/24/20 01:18 Dose: 5 mg Documented by: [id number] Umeclidinium [place] (Umeclidinium [place] 62.5mcg/Blister 7 Puffs/Inhaler) 1 puffs INH DAILY [facility]; Protocol Stop: 01/23/21 08:59 Last Admin: 12/25/20 07:47 Dose: 1 puffs Documented by: [id number] Admin: 12/24/20 08:44 Dose: 1 puffs Documented by: [id number] Vitamin D (Cholecalciferol 1,000 Units 25 Mcg Tab) 1,000 units PO DAILY [facility] Stop: 01/23/21 08:59 Last Admin: 12/25/20 07:45 Dose: 1,000 units Documented by: [id number] Admin: 12/24/20 08:44 Dose: 1,000 units Documented by: [id number] Discontinued Medications Bisacodyl (Bisacodyl 5 Mg Tabec) 5 mg PO DAILY PRN PRN Reason: Constipation Stop: 01/22/21 15:35 Last Admin: 12/24/20 08:40 Dose: 5 mg Documented by: [id number] Bupivacaine HCl (Bupivacaine 0.5 % 5 Mg/1 Ml Mpf 30ml Vial) 30 ml INFIL ONE ONE Stop: 12/24/20 18:46 Last Admin: 12/24/20 20:05 Dose: Not Given Documented by: [id number] Ethyl Chloride (Ethyl Chloride Aer Spr 100 Ml Can) 1 sprays EXT ONE ONE Stop: 12/24/20 18:46 Last Admin: 12/24/20 20:05 Dose: Not Given Documented by: [id number] Fentanyl (Fentanyl 50 Mcg/Hr Tdsy) 50 mcg TD NOW STA Stop: 12/23/20 12:04 Last Admin: 12/23/20 12:52 Dose: 50 mcg Documented by: [id number] Sodium Chloride (Nss 1000ml) 1,000 mls @ 999 mls/hr IV .Q1H1M ONE Stop: 12/23/20 11:17 Last Infusion: 12/23/20 12:34 Dose: 0 mls/hr Documented by: [id number] Admin: 12/23/20 11:26 Dose: 999 mls/hr Documented by: [id number] Sodium Chloride (Nss 1000ml) 1,000 mls @ 100 mls/hr IV .Q10H AYE Stop: 12/24/20 11:35 Last Infusion: 12/24/20 14:00 Dose: 0 mls/hr Documented by: [id number] Admin: 12/24/20 04:18 Dose: 100 mls/hr Documented by: [id number] Infusion: 12/24/20 04:18 Dose: 100 mls/hr Documented by: [id number] Infusion: 12/23/20 23:15 Dose: 100 mls/hr Documented by: [id number] Infusion: 12/23/20 19:45 Dose: 0 mls/hr Documented by: [id number] Admin: 12/23/20 16:44 Dose: 100 mls/hr Documented by: [id number] Vancomycin HCl 2,000 mg/ (Sodium Chloride) 540 mls @ 200 mls/hr IV 1600 ONE Stop: 12/24/20 18:41 Last Infusion: 12/24/20 20:27 Dose: 0 mls/hr Documented by: [id number] Admin: 12/24/20 16:50 Dose: 200 mls/hr Documented by: [id number] Ketorolac Tromethamine (Ketorolac Tromethamine 15 Mg/Ml Vial) 15 mg IV NOW ONE Stop: 12/24/20 19:46 Last Admin: 12/24/20 19:51 Dose: 15 mg Documented by: [id number] Lactulose (Lactulose Syrup 20 Gm/30 Ml c) 20 gm PO NOW ONE Stop: 12/24/20 13:19 Last Admin: 12/24/20 14:39 Dose: 20 gm Documented by: [id number] Methylprednisolone Acetate (Methylprednisolone Acetate 80 Mg/Ml Vial) 80 mg IA ONE ONE Stop: 12/24/20 18:46 Last Admin: 12/24/20 20:05 Dose: Not Given Documented by: [id number] Metoprolol Tartrate (Metoprolol Tartrate 25 Mg Tab) 12.5 mg PO ONE ONE Stop: 12/25/20 15:46 Last Admin: 12/25/20 17:34 Dose: 12.5 mg Documented by: [id number] Miscellaneous (Fentanyl Patch Remove & Waste) 1 ea N/A Q3D [facility] Stop: 01/22/21 12:14 Last Admin: 12/23/20 12:52 Dose: 1 ea Documented by: [id number] Cosigned by: [id number] Miscellaneous (Zytiga 250 Mg: Order Awaiting Action) 1 ea N/A QS [facility] Stop: 01/22/21 15:59 Last Admin: 12/24/20 01:03 Dose: Not Given Documented by: [id number] Admin: 12/23/20 17:15 Dose: Not Given Documented by: [id number] Polyethylene Glycol (Polyethylene (Miralax) 17 Gm Pack) 17 gm PO DAILY [facility] Stop: 01/22/21 15:35 Last Admin: 12/24/20 08:41 Dose: 17 gm Documented by: [id number] Admin: 12/23/20 16:51 Dose: 17 gm Documented by: [id number] Imaging Data Radiologist's Impression: Chest X-Ray 12/23/20 10:16 XR chest 1V portable CLINICAL HISTORY: Weakness. History of lung cancer. COMPARISON STUDY: Chest CT 04/30/2019. FINDINGS: Lung volumes are normal. Lungs are clear. There is no pneumothorax or pleural effusion. Cardiac size is normal. Mediastinal contours are normal. There is no evidence for pulmonary edema. Multiple skeletal metastases are better depicted on the prior chest CT. IMPRESSION: No acute cardiopulmonary findings. ACT 112: Negative or not required by law. Electronically signed by: Dagoberto Wiggins M.D. 12/23/2020 11:29 AM Femur X-Ray 12/23/20 10:18 XR femur LT 2V routine CLINICAL HISTORY: Left lower leg/knee pain COMPARISON: X-ray knee dated 12/20/2020 DISCUSSION: There are quadriceps insertional patellar calcification. There is a small suprapatellar joint effusion. No acute fractures are visualized. There are sclerotic changes involving the left iliac bone and ischial. The findings are consistent with metastatic disease. There are also sclerotic changes involving the right symphysis pubis.. IMPRESSION: 1. No acute fractures or dislocations 2. Small suprapatellar joint effusion 3. Multifocal sclerotic bone within the visualized pelvis consistent with skeletal metastasis ACT 112: Negative or not required by law. Electronically signed by: Morris Elizondo M.D. 12/23/2020 11:29 AM Pelvis X-Ray 12/23/20 10:18 XR pelvis 1-2V routine HISTORY: 75 years-old Male Pt c/o left knee pain acute pelvic and left hip pain COMPARISON: CT left femur of same day, CT abdomen pelvis 12/26/2019 TECHNIQUE: AP view the pelvis FINDINGS: Mild osteoporosis of the bilateral hips. No acute fracture, dislocation or avascular necrosis. Multifocal osteoblastic skeletal metastasis redemonstrated. No associated pathologic fracture. Unremarkable soft tissues. IMPRESSION: 1. No acute fracture. 2. Multifocal osteoblastic skeletal metastasis redemonstrated. ACT 112: Negative or not required by law. The above report was generated using voice recognition software. It may contain grammatical, syntax or spelling errors. Electronically signed by: Salvador Maxwell M.D. 12/23/2020 11:[address] 12/23/20 12:47 CT OF THE HEAD WITHOUT CONTRAST CLINICAL HISTORY: Syncope. History of lung cancer. COMPARISON STUDY: MRI of the brain December 01, 2017. CT DOSE: 614.27 mGy.cm TECHNIQUE: Helical axial images of the head were obtained without IV contrast. Automated exposure control was utilized for the study. A dose lowering technique was utilized adhering to the principles of ALARA. FINDINGS: No acute intracranial hemorrhage, midline shift or mass effect is present. The ventricular system is stable. The basal cisterns are patent. No extra-axial collections are present. There are no findings to suggest acute dural sinus thrombosis or acute territorial infarct. No significant calvarial abnormalities are present. Visualized portions of the sinuses and mastoid air c ells are clear. IMPRESSION: No acute intracranial findings. ACT 112: Negative or not required by law. Electronically signed by: Dagoberto Wiggins M.D. 12/23/2020 1:37 PM Discharge Plan Visit Data Chief Complaint: Syncope Stated Complaint: SYNCOPE, ILLNESS ED Provider: Jean Claude Mccoy Discharge Problem: Syncope, Hypotension, Effusion, left knee Patient Disposition: Admitted As Inpatient Discharge Instructions Interventions: ED Discharge Assessment Last Done: 12/23/20 14:54 Discharge Problem: Syncope Qualifiers: Syncope type: unspecified Qualified Code(s): R55 - Syncope and collapse Hypotension Qualifiers: Hypotension type: unspecified hypotension type Qualified Code(s): I95.9 - Hypotension, unspecified
[2020-12-23] MEDS ORDERED: ONDANSETRON INJ 2 MG/ML 2 ML VIAL IV PRN (15:36)
[2020-12-23] MEDS ORDERED: TEMAZEPAM 7.5 MG CAPSULE PO PRN (15:36)
[2020-12-23] MEDS ORDERED: ALBUT/IPRATROP 3MG/0.5MG NEB 3 ML VIAL NEB PRN (15:36)
[2020-12-23] MEDS ORDERED: bisacodyL 5 MG TABEC PO PRN (15:36)
[2020-12-23] MEDS ORDERED: ACETAMINOPHEN 325 MG TAB PO PRN (15:36)
[2020-12-23] MEDS ORDERED: CHECK fentaNYL PATCH PLACEMENT SCH (16:00)
[2020-12-23] MEDS: CHECK fentaNYL PATCH PLACEMENT SCH (16:44)
[2020-12-23] MEDS: SODIUM CHLORIDE 0.9% 1000ML 1,000 ML IV SCH (16:44)
--- NOTE | 2020-12-23 16:47 | Ultrasound Report ---
ULTRASOUND OF THE CAROTID ARTERIES CLINICAL HISTORY: Syncope.. COMPARISON STUDY: No priors. TECHNIQUE: Real-time, grayscale, and color Doppler sonography of the carotid arteries is performed. I mages are reviewed in the transverse and longitudinal planes. FINDINGS: Blood pressure in the right arm measures 140/75 and blood pressure in the left arm measures 135/70. The carotid arteries are patent bilaterally and demonstrate antegrade flow. There is mild atheroscler otic plaque seen bilaterally. Normal doppler arterial waveforms are seen throughout. Minimally elevat ed velocities within the mid left internal carotid artery are likely artifactual. Velocity measuremen ts are listed below. Common carotid peak systolic velocity (cm/sec): RIGHT: 75 LEFT: 68 ICA proximal peak systolic velocity (cm/sec): RIGHT: 93 LEFT: 109 ICA mid peak systolic velocity (cm/sec): RIGHT: 102 LEFT: 136 ICA distal peak systolic velocity (cm/sec): RIGHT: 104 LEFT: 121 ICA/CC peak systolic ratio: RIGHT: 1.4 LEFT: 2.0 Antegrade flow was shown in the vertebral arteries. The external carotid arteries are patent. IMPRESSION: 1. There is no sonographic evidence of hemodynamically significant stenosis in the right or left penaloza tid arterial system. 2. Antegrade flow is shown in the vertebral arteries. ACT 112: Negative or not required by law. Electronically signed by: Oleg Olmstead M.D. 12/23/2020 4:46 PM
[2020-12-23] MEDS: POLYETHYLENE (MIRALAX) 17 GM PACK PO SCH (16:51)
[2020-12-23] MEDS: oxyCODONE HCL IR 5 MG TAB (IMMEDIATE RELEASE) PO PRN (16:51)
[2020-12-23] MEDS: ENOXAPARIN INJ 40 MG/0.4 ML SYR SQ SCH (18:36)
[2020-12-23] MEDS: cefTRIAXone SODIUM 2,000 MG in DEXTROSE 5% 50 ML IV SCH (21:01)
[2020-12-23] MEDS: DOCUSATE SODIUM 100 MG CAP PO SCH (21:03)
[2020-12-23] MEDS: POT PHOSPHATE MONOBASIC W/ SOD TAB PO SCH (21:03)
--- NOTE | 2020-12-23 21:17 | Magnetic Resonance Report ---
MRI OF THE LEFT KNEE CLINICAL HISTORY: Left knee pain and swelling. COMPARISON STUDY: Radiographs of left knee dated 12/20/2020. TECHNIQUE: MRI of the left knee was performed utilizing proton density, T1, and T2-weighted sequences in the axial, sagittal, coronal planes. IV contrast was not administered for this examination. The e xamination is compromised by motion artifact. FINDINGS: Menisci: There is an oblique tear involving the body and posterior horn of the medial meniscus. The l ateral meniscus appears intact noting mild mucoid degeneration. Ligaments: The anterior and posterior cruciate ligaments are intact. The medial and lateral collatera l ligaments are within normal limits. Extensor mechanism: The extensor mechanism is intact. There is nonspecific edema within the suprapate llar fat pad as well as Hoffa's fat pad. Articular cartilage and bone: There is only mild degenerative thinning of the articular cartilage zack ng the weightbearing surface in both the medial and lateral compartments. Particular cartilage of the patella is well maintained. No full-thickness cartilage loss is identified. Mild nonspecific marrow edema is seen within the anterior tibial plateau. There is no MRI evidence of fracture. Patellar enth esophytes are identified. A calcified fabella is incidentally noted. Joint effusion: There is a moderate to large joint effusion. A medial patellar plica is incidentally noted. Soft tissues: Superficial and deep soft tissue edema is present around the knee. There is generalized atrophy of the regional musculature. IMPRESSION: 1. There is an oblique tear involving the body and posterior horn of the medial meniscus. 2. Moderate to large joint effusion. 3. Superficial and deep soft tissue edema is identified around the knee. 4. There is minimal nonspecific marrow edema within the anterior tibial plateau. No fracture is ident ified. 5. Minimal degenerative change as above. No full thickness cartilage loss is identified. ACT 112: Negative or not required by law. Electronically signed by: Oleg Olmstead M.D. 12/23/2020 9:15 PM
[2020-12-24] MEDS: predniSONE 5 MG TAB PO SCH (01:18)
[2020-12-24] MEDS: ABIRATERONE ACETATE PO SCH (01:18)
[2020-12-24] MEDS: CHECK fentaNYL PATCH PLACEMENT SCH ×3 (01:21→15:38)
[2020-12-24] MEDS: SODIUM CHLORIDE 0.9% 1000ML 1,000 ML IV SCH (04:18)
--- NOTE | 2020-12-24 06:09 | Electrocardiogram Report ---
Test Reason : Blood Pressure : / mmHG Vent. Rate : 079 BPM Atrial Rate : 079 BPM P-R Int : 142 ms QRS Dur : 078 ms QT Int : 400 ms P-R-T Axes : 074 053 066 degrees QTc Int : 458 ms Poor data quality, interpretation may be adversely affected Normal sinus rhythm Normal ECG When compared with ECG of 20-DEC-2020 08:11, No significant change was found Confirmed by Feliciano Lock ([id number]) on 12/24/2020 6:09:29 AM Referred By: REFERRED SELF Confirmed By:Feliciano Lock
[2020-12-24 07:00] LABS: Hematocrit (blood only) 31.6 % (42-52); Hemoglobin 10.9 g/dL (14.0-18.0); Mean Corpuscular Hemoglobin 32.2 pg (25-34); Mean Corpuscular Hgb Conc 34.5 g/dL (32-36); Mean Corpuscular Volume 93.5 fL (80-100); Mean Platelet Volume 9.3 fL (7.4-10.4); Platelet Count 240 K/uL (130-400); RDW Coefficient of Variation 13.2 % (11.5-14.5); RDW Standard Deviation 45.7 fL (36.4-46.3); Red Blood Count 3.38 M/uL (4.7-6.1); White Blood Count 7.32 K/uL (4.8-10.8)
[2020-12-24 07:37] LABS: BUN Creatinine Ratio 14.8 (10-20); Calcium 7.8 mg/dl (8.5-10.1); Creatinine Clr Calc Pharmacy 88.9 ml/min; Est GFR (African American) 99.7 ml/min; Potassium 3.5 mmol/L (3.5-5.1)
[2020-12-24] MEDS: oxyCODONE HCL IR 5 MG TAB (IMMEDIATE RELEASE) PO PRN ×2 (08:40→20:17)
[2020-12-24] MEDS: DOCUSATE SODIUM 100 MG CAP PO SCH ×2 (08:40→20:17)
[2020-12-24] MEDS: POLYETHYLENE (MIRALAX) 17 GM PACK PO SCH ×2 (08:41→20:16)
[2020-12-24] MEDS: CALCIUM CARBONATE 1250MG TAB PO SCH (08:44)
[2020-12-24] MEDS: CHOLECALCIFEROL 1,000 UNITS 25 MCG TAB PO SCH (08:44)
[2020-12-24] MEDS: POT PHOSPHATE MONOBASIC W/ SOD TAB PO SCH ×2 (08:44→20:18)
[2020-12-24] MEDS: UMECLIDINIUM BROMIDE 62.5MCG/BLISTER 7 PUFFS/INHALER INH SCH (08:44)
[2020-12-24] MEDS ORDERED: predniSONE 5 MG TAB PO SCH (09:00)
[2020-12-24] MEDS ORDERED: LACTULOSE SYRUP 20 GM/30 ML UDC PO ONE (13:18)
[2020-12-24] MEDS: bisacodyL 5 MG TABEC PO SCH (14:39)
--- NOTE | 2020-12-24 14:46 | Hospitalist Progress Note ---
Date of Service December 24, 2020 Assessment & Plan (1) Syncope: Pt is 75 y/o M with PMH prostate cancer with metastasis to bone and lung, COPD, CKD III, anxiety presented to ER with complaint of syncopal episodes with walking Repeated episodes noted in the past several days Patient was hypotensive on admission. Saved fluid bolus and IV fluid resuscitation, blood pressure stable at 123/49, IV fluids discontinued CT Head: no acute findings -Obtain orthostatic vitals -We will order for MRI of brain to rule out any evidence of mets: Metastatic prostate cancer. (2) Hypotension: In ER initial BP: 85/69 up to 124/65 after 1L NSS Likely secondary to poor oral intake and possible opioids Blood pressure stable, patient is encouraged to increase p.o. intake, IV fluid discontinued (3) Effusion, left knee: Left knee edema and pain for past 10 days after prolonged kneeling on floor Xray knee from 12/20/20: No acute fracture. No suspicious osseous lesion by radiography. Small left knee joint effusion. -MRI L knee shows bilateral meniscus tear with joint effusion -Orthopedics evaluation requested Continue PT OT (4) Prostate cancer metastatic to multiple sites: Prostate cancer with metastasis to bone and lung. S/p radiation. Follows with Dr. Vicente. On Lupron Zytiga, prednisone 5 mg daily -Fentanyl patch was increased from 37mcg to 50mcg in ER today. We will continue this secondary to patient's increased pain in hopes he will not require as much oxycodone for breakthrough pain -Continue Zytiga, Prednisone Constipation: Stable secondary to narcotic pain meds, ordered bowel regimen (5) CKD (chronic kidney disease), stage III: Cr: 1.0. baseline Cr: 1-1.2 -Monitor renal functions, avoid nephrotoxic agents when possible (6) COPD (chronic obstructive pulmonary disease): No signs acute exacerbation -Continue home inhalers, nebs prn DVT Prophylaxis -Lovenox DNR/DNI Follows with Dr Mejia for routine care Patient's daughter will be updated over phone Admission and Anticipated Discharge Date Admission Date: December 23, 2020 Subjective Follow-up visit for syncope/fall/left knee pain: Saw patient when he was working with physical therapist, Has significant pain on left knee, Able to take steps with a walker, no significant loss of balance noted. Patient is very forgetful, unable to recall the events leading him fall or ho spital admission No hypoxia no shortness of breath no fever chills, Stable vitals Review of Systems Review of Systems: All systems reviewed & are unremarkable except as noted in Subjective Physical Exam Physical Exam: Physical exam: General: No acute distress, HEENT: Anicteric sclera Heart: Regular S1-S2, no carotid bruit, no JVD, no lower extremity edema Lungs: Clear to auscultate, no wheeze or rales Abdomen: Soft nontender, Extremity: Tenderness and swelling on right knee, minimum range of motion secondary to pain Neuro: No focal neurological deficit normal speech, very forgetful Psych: Alert awake oriented to place and person, normal affect Results & Data Results & Data ([facility]) Vital Signs (Past 12 Hours) Vital Signs Temp Pulse Pulse Resp BP Pulse Ox 12/24/20 10:59 37.1 C 81 20 123/49 L 97 12/24/20 08:53 37.2 C 12/24/20 07:40 37.6 C H 84 20 123/63 98 12/24/20 07:31 96 H 12/24/20 05:41 84 12/24/20 03:23 37.5 C 88 16 149/66 H 96
[2020-12-24] MEDS ORDERED: ACETAMINOPHEN 500 MG TAB PO PRN (15:25)
[2020-12-24] MEDS ORDERED: VANCOMYCIN HCL 1,000 MG/270 ML BAG IV STA (15:26)
[2020-12-24] MEDS ORDERED: VANCOMYCIN CONSULT ACTIVE PRN (15:26)
--- NOTE | 2020-12-24 15:29 | Communication Note ---
Date of Service: December 24, 2020 Febrile episode noted, ordered for blood culture, patient is on IV Rocephin, will add Vanco for possible infection on left knee joint. Ortho eval requested, patient may need left knee joint fluid aspiration. Ordered to hold Lovenox. Lidia Terrazas MD
--- NOTE | 2020-12-24 15:46 | Communication Note ---
Date of Service: December 24, 2020 Spoke with patient's daughter Jeanette phone number #[phone] Patient did had injury to left knee several weeks ago, was seen by orthopedics as an outpatient. Had 2 episodes of feeling dizzy and lightheaded while standing up, felt cold and clammy, passed out briefly prior to coming to the hospital Syncope: Possibly secondary to dehydration, patient was orthostatic positive, symptoms resolved after IV fluids Given history of metastatic prostate cancer, will do an MRI of brain tomorrow morning to rule out any underlying metastasis Appreciate input from PT OT patient will be able to return home with 24-hour supervision, will benefit with home physical therapy. Awaiting input from orthopedics Lidia Terrazas MD
[2020-12-24] MEDS ORDERED: VANCOMYCIN HCL 2,000 MG in SODIUM CHLORIDE 0.9% 500 ML IV ONE (16:00)
--- NOTE | 2020-12-24 17:57 | Pharmacy Report ---
Pharmacy Abx Initial Consult - Date of Service December 24, 2020 - Pharmacy Dosing Scope Date of Consult: 12/24/20 Consultation requested by: Dr. Terrazas Pharmacy is consulted to initiate VANCOMYCIN IV dosing therapy, order appropriate labs and adjust drug dose/frequency. - Subjective The patient is a 75 year old M admitted on 12/23/20 12:50. - Objective Height: 6 ft 2 in Weight: 86.1 kg Vital Signs (Past 12hrs): Vital Signs Temp Pulse Pulse Pulse Resp BP BP 12/24/20 15:52 90 12/24/20 15:36 12/24/20 15:19 37.8 C H 93 H 18 142/65 H 12/24/20 10:59 37.1 C 81 20 123/49 L 12/24/20 08:53 37.2 C 12/24/20 07:40 37.6 C H 84 20 123/63 12/24/20 07:31 96 H Pulse Ox Pulse Ox 12/24/20 15:52 12/24/20 15:36 97 12/24/20 15:19 98 12/24/20 10:59 97 12/24/20 08:53 12/24/20 07:40 98 12/24/20 07:31 Lab Results (24hrs): Laboratory Tests (24 Hours) 12/24/20 12/24/20 06:35 06:35 WBC 7.32 Creatinine 0.86 Est Cr Clr Drug Dosing 88.9 Micro Results: 12/24/20 16:05 Aerobic Blood Culture - Pending Blood Anaerobic Blood Culture - Pending 12/24/20 16:12 Aerobic Blood Culture - Pending Blood Anaerobic Blood Culture - Pending - Assessment & Plan Assessment 75 year old M receiving Rocephin now adding Vancomycin after he spiked a fever earlier today. NG on urine cx, blood cx pending. Plan Vancomycin IV * Loading dose: 2000mg (~23 mg/kg) * Maintenance dose: 1000mg IV every 8 hours * Patient meets criteria for vancomycin AUC dosing nomogram * AUC/ANA is the preferred PK/PD target for vancomycin * Target AUC/ANA = 400-600 * AUC guided dosing is effective and associated with decreased risk of nephrotoxicity Pharmacy will continue to follow and will adjust dose/frequency as necessary. Thank you.
[2020-12-24] MEDS ORDERED: ETHYL CHLORIDE AER SPR 100 ML CAN EXT ONE (18:45)
[2020-12-24] MEDS ORDERED: BUPIVACAINE 0.5 % 5 MG/1 ML MPF 30ML VIAL INFIL ONE (18:45)
[2020-12-24] MEDS ORDERED: methylPREDNISolone acetate 80 MG/ML VIAL IA ONE (18:45)
--- NOTE | 2020-12-24 19:03 | Orthopedic Consultation ---
Date of Consultation December 24, 2020 Assessment & Plan (1) Effusion, left knee: Acute onset left knee effusion. Knee pain. Typically with a degenerative meniscus tear at his age we try some conservative management prior to proceeding with surgery. May be candidate for aspiration junction with steroid. I discussed with him that we would reassess him in the morning and have materials ordered to bedside and would aspirate his knee if it looks cloudy or there is any suggestive infection then we will hold off on a injection of steroid if it looks totally clear and no signs of infection all then we will proceed with steroid injection his knee. Ice was ordered for his knee. Definitive treatment would be arthroscopic partial meniscectomy which could be performed electively. History of Present Illness Reason for Consultation: Left knee pain 75-year-old male left knee pain and swelling. Denies any fevers does not feel overly sick. He does have history of prostate CA metastatic. Patient has chronic kidney disease. Attending Physician: Lidia Terrazas MD Allergies Allergy/AdvReac Type Severity Reaction Status Date / Time No Known Drug Allergies Allergy Unknown No known Verified 12/23/20 10:47 allergies Home Medications Medication Instructions Recorded Confirmed Type docusate sodium 100 mg capsule 100 mg PO DAILY cap 04/26/19 12/23/20 History fentanyl 25 mcg/hr transdermal 1 patch TD Q72H 04/26/19 12/23/20 History patch polyethylene glycol 3350 17 17 g PO DAILY PRN gm 04/26/19 12/23/20 History gram/dose oral powder tiotropium bromide 2.5 2 puffs INHALATION DAILY #1 gm 04/26/19 12/23/20 History mcg/actuation mist for inhalation abiraterone 250 mg tablet 1,000 mg PO DAILY 03/10/20 12/23/20 History cholecalciferol (vitamin D3) 25 25 mcg PO DAILY 03/10/20 12/23/20 History mcg (1,000 unit) capsule lorazepam 0.5 mg tablet 0.5 mg PO TID PRN 03/10/20 12/23/20 History oxycodone 5 mg tablet 5 mg PO Q8H PRN 03/10/20 12/23/20 History prednisone 5 mg tablet 5 mg PO DAILY 03/10/20 12/23/20 History fentanyl 12 mcg/hr transdermal 1 patch TRANSDERMAL Q72H 07/31/20 12/23/20 History patch calcium 1,000 mg PO DAILY 12/20/20 12/23/20 History ipratropium-albuterol 3 ml INHALATION Q6 PRN 12/20/20 12/23/20 History ondansetron HCl 8 mg PO Q8 PRN 12/20/20 12/23/20 History sod phos di, mono-K phos mono 1 tab PO BID 12/20/20 12/23/20 History [Z-Qnvr-Diaqeau] temazepam 7.5 mg PO HS PRN 12/20/20 12/23/20 History Patient History Medical History CKD (chronic kidney disease), stage III COPD (chronic obstructive pulmonary disease) History of bronchitis Hx of colonic polyps "adenomatous polyp" Hypoxia History of; has 2L oxygen to use HS and prn Pancytopenia PNA (pneumonia) Prostate cancer, primary, with metastasis from prostate to other site Bone, lung Surgical History History of appendectomy In 2nd grade History of colonoscopy 2017 History of tonsillectomy in 9th grade Family History Father , Passed age 64 of colon cancer No problems noted. Mother , Passed age 90 of alzheimers disease No problems noted. Sister , Passed age 62 of "female cancer" Colon cancer, Onset Age: 55 Sister No problems noted. Son No problems noted. Daughter No problems noted. Daughter No problems noted. Daughter No problems noted. 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 No history of gout. Has metastases to bone but up in the hip area not in his left knee. Patient said he is on steroids. Physical Exam Physical Exam: Left knee exam demonstrates that he has some limited flexion due to pain. He has a moderately large knee effusion. He has some generalized swelling in the entire left leg as well from the thigh down to the foot. His calf nontender and negative Homans' sign. Does have medial joint line tenderness some pain with Christofer test but I could not flex his knee up real high to get a more definitive test. Neurological exam is intact. Circulation intact. Results & Data ([facility]) Vital Signs (Past 12 Hours) Vital Signs Temp Pulse Pulse Pulse Resp BP BP 12/24/20 15:52 90 12/24/20 15:36 12/24/20 15:19 37.8 C H 93 H 18 142/65 H 12/24/20 10:59 37.1 C 81 20 123/49 L 12/24/20 08:53 37.2 C 12/24/20 07:40 37.6 C H 84 20 123/63 12/24/20 07:31 96 H Pulse Ox Pulse Ox 12/24/20 15:52 12/24/20 15:36 97 12/24/20 15:19 98 12/24/20 10:59 97 12/24/20 08:53 12/24/20 07:40 98 12/24/20 07:31 x-rays demonstrate well-maintained joint spaces. MRI demonstrates a degenerative type horizontal cleavage degeneration medial meniscus with undersurface tear in the mid meniscus area and a moderate knee effusion.
[2020-12-24] MEDS: NICOTINE 21 MG/24 HR TDSY TD SCH (19:23)
[2020-12-24] MEDS ORDERED: KETOROLAC TROMETHAMINE 15 MG/ML VIAL IV ONE (19:45)
[2020-12-24] MEDS: cefTRIAXone SODIUM 2,000 MG in DEXTROSE 5% 50 ML IV SCH (20:20)
--- NOTE | 2020-12-24 21:11 | Ultrasound Report ---
US venous doppler LE LT CLINICAL HISTORY: Left leg swelling, r/o DVT COMPARISON STUDY: No previous studies for comparison. FINDINGS: Real-time and color flow Doppler imaging were performed. Flow was seen within the femoral, popliteal and calf veins with no intraluminal thrombus demonstrated. The saphenous vein is patent. Th ere is a hypoechoic structure within the left groin located deep to the common femoral artery and vei n measuring 58 x 23 x 21 mm. This likely represents a fluid collection. There is also a anechoic avas cular fluid collection extending from the distal thigh to the lateral knee measuring 11.5 x 6.4 x 1.7 cm. This may represent a joint effusion. IMPRESSION: 1. No evidence of left lower extremity DVT 2. Fluid collection extending from the distal thigh to the lateral knee measuring 11.5 x 6.4 x 1.7 cm . This likely represents a joint effusion. 3. Hypoechoic structure within the left groin located deep to the common femoral artery and vein kasi uring 58 x 23 x 21 mm. While likely representing a fluid collection, a hypoechoic solid lesion could appear similar ACT 112: Negative or not required by law. Electronically signed by: Morris Elizondo M.D. 12/24/2020 9:09 PM
[2020-12-25] MEDS: CHECK fentaNYL PATCH PLACEMENT SCH ×3 (00:01→17:35)
[2020-12-25] MEDS: ABIRATERONE ACETATE PO SCH (00:46)
[2020-12-25] MEDS: predniSONE 5 MG TAB PO SCH (00:47)
[2020-12-25] MEDS: VANCOMYCIN HCL 1,000 MG in SODIUM CHLORIDE 0.9% 250 ML IV SCH ×2 (01:59→10:27)
[2020-12-25 05:46] LABS: Basophils # (auto) 0.05 K/uL (0-0.2); Basophils % (auto) 0.8 %; Eosinophils # (auto) 0.13 K/uL (0-0.5); Eosinophils % (auto) 2.1 %; Hematocrit (blood only) 30.7 % (42-52); Hemoglobin 10.1 g/dL (14.0-18.0); Immature Granulocytes # (auto) 0.01 K/uL (0.00-0.02); Immature Granulocytes % (auto) 0.2 %; Lymphocytes # (auto) 0.37 K/uL (1.2-3.4); Lymphocytes % (auto) 5.9 %; Mean Corpuscular Hemoglobin 31.6 pg (25-34); Mean Corpuscular Hgb Conc 32.9 g/dL (32-36); Mean Corpuscular Volume 95.9 fL (80-100); Mean Platelet Volume 9.3 fL (7.4-10.4); Monocytes # (auto) 0.43 K/uL (0.11-0.59); Monocytes % (auto) 6.9 %; Neutrophils # (auto) 5.25 K/uL (1.4-6.5); Neutrophils % (auto) 84.1 %; Platelet Count 253 K/uL (130-400); RDW Coefficient of Variation 13.1 % (11.5-14.5); RDW Standard Deviation 46.1 fL (36.4-46.3); White Blood Count 6.24 K/uL (4.8-10.8)
[2020-12-25 06:12] LABS: BUN Creatinine Ratio 12.8 (10-20); Calcium 7.4 mg/dl (8.5-10.1); Est GFR (African American) 84.1 ml/min; Est GFR (Non-African American) 72.6 ml/min; Magnesium 2.2 mg/dl (1.8-2.4); Potassium 3.8 mmol/L (3.5-5.1)
[2020-12-25] MEDS ORDERED: IBUPROFEN 200 MG TAB PO PRN (07:21)
[2020-12-25] MEDS: POT PHOSPHATE MONOBASIC W/ SOD TAB PO SCH ×2 (07:45→19:58)
[2020-12-25] MEDS: CHOLECALCIFEROL 1,000 UNITS 25 MCG TAB PO SCH (07:45)
[2020-12-25] MEDS: CALCIUM CARBONATE 1250MG TAB PO SCH (07:45)
[2020-12-25] MEDS: POLYETHYLENE (MIRALAX) 17 GM PACK PO SCH ×2 (07:46→19:58)
[2020-12-25] MEDS: NICOTINE 21 MG/24 HR TDSY TD SCH (07:46)
[2020-12-25] MEDS: UMECLIDINIUM BROMIDE 62.5MCG/BLISTER 7 PUFFS/INHALER INH SCH (07:47)
--- NOTE | 2020-12-25 08:42 | Orthopedic Progress Note ---
Date of Service December 25, 2020 Assessment & Plan (1) Effusion, left knee: Left knee effusion. Knee was sterilely prepped today with Betadine and aspirated for 90 cc of blood-tinged cloudy fluid. I did not inject the knee because I cannot rule out possible infection. We will send knee fluid for fluid analysis cell count differential crystal analysis, Gram stain C&S. Possible arthroscopic washout partial meniscectomy. Admission and Anticipated Discharge Date Admission Date: December 23, 2020 Subjective Patient feels a bit better today, less pain Review of Systems Review of Systems: No fever chills Physical Exam Physical Exam: Persistent moderate to large knee effusion no erythema some generalized swelling of the leg. Results & Data ([facility]) Vital Signs (Past 12 Hours) Vital Signs Temp Pulse Pulse Resp BP Pulse Ox 12/25/20 07:00 37.0 C 80 18 116/65 96 12/25/20 02:55 37.3 C 96 H 20 152/60 H 96 12/24/20 23:46 80 12/24/20 23:05 36.7 C 83 20 129/64 96 ultrasound negative for DVT
[2020-12-25] MEDS: oxyCODONE HCL IR 5 MG TAB (IMMEDIATE RELEASE) PO PRN ×2 (09:36→20:01)
[2020-12-25] MEDS: bisacodyL 5 MG TABEC PO SCH (09:36)
[2020-12-25] MEDS: DOCUSATE SODIUM 100 MG CAP PO SCH ×2 (09:36→19:58)
[2020-12-25 10:13] LABS: Appearance Synovial Fluid CLOUDY; Color Synovial Fluid AMBER; Mononuclear WBC Synovial 4.7 %; Polynuclear WBC Synovial 95.3 %; RBC Synovial Fluid (A) 30000 /uL; Source Synovial Fluid KNEE; WBC Synovial Fluid (A) 36600 /ul (0-200)
[2020-12-25] MEDS ORDERED: METOPROLOL TARTRATE 25 MG TAB PO ONE (15:45)
--- NOTE | 2020-12-25 17:15 | Communication Note ---
Date of Service: December 25, 2020 Patient had right knee fluid aspiration by orthopedics today: Synovial fluid analysis shows fluid is johanna-colored/cloudy, with WBC more than 36,000 Very likely infected/septic knee: Continue with broad-spectrum IV antibiotics, will follow synovial fluid culture report Frequent SVT: Possible secondary to acute illness, patient remains asymptomatic, Started on low-dose beta-laura, echo in a.m. Lidia Terrazas MD
--- NOTE | 2020-12-25 17:18 | Communication Note ---
Date of Service: December 25, 2020 Patient had a resting echocardiogram done already: Echo report 12/24/2020 : Shows normal LV function, normal LV wall thickness normal LV wall motion, ejection fraction 60-65% Grade 1 diastolic dysfunction. Right ventricle in normal size and function. There is no significant valvular heart disease Continue to monitor in telemetry. On low-dose beta-laura. Lidia Terrazas MD
[2020-12-25] MEDS ORDERED: VANCOMYCIN TROUGH ONE (17:30)
--- NOTE | 2020-12-25 17:42 | Hospitalist Progress Note ---
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, COPD, CKD III, anxiety presented to ER with complaint of syncopal episodes with walking possible secondary to dehydration BP improved with IV fluid , no symptoms of dizzy spell or lightheadedness no further episode ECHO shows no valvular heart disease , normal EF CT Head: no acute findings will hold of MRI of brain as pt remains asymptomatic neurologically , very low suspicion for brain mets from prostate CA (2) Hypotension: BP improved , no episode of dizzy spell or syncope Likely secondary to poor oral intake and possible opioids Frequent SVT; noted in monitor possible due to acute illness pt remains asymptomatic during those episode, no complain of palpation or ligh theadedness ordered for low dose lopressor ECHO shows no cardiac pathology (3) Effusion, left knee: Left knee edema and pain for past 10 days after prolonged kneeling on floor Xray knee from 12/20/20: No acute fracture. No suspicious osseous lesion by radiography. Small left knee joint effusion. 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 S/p radiation. Follows with Dr. Vicente. On Lupron Zytiga, prednisone 5 mg daily -Fentanyl patch recently was increased from 37mcg to 50mcg . -Continue Zytiga, Prednisone Constipation: Stable secondary to narcotic pain meds, cont bowel regimen Mouth sore /burning : possible due to jolanta ordered for PO Nystatin suspension (5) CKD (chronic kidney disease), stage III: Cr: 1.0. baseline Cr: 1-1.2 -Monitor renal functions, avoid nephrotoxic agents when possible (6) COPD (chronic obstructive pulmonary disease): No signs acute exacerbation -Continue home inhalers, nebs prn DVT Prophylaxis -Lovenox DNR/DNI Follows with Dr Mejia for routine care cont PT/OT , will need continued hospital stay for IV abx for infected L knee joint appreciate input from PT/OT plan to return home with home PT once medically stable Admission and Anticipated Discharge Date Admission Date: December 23, 2020 Subjective pt reports of feeling the same , left knee still painful has been afebrile no dizzy spell or lightheadedness BP has been stable Review of Systems Musculoskeletal: + joint pain (left knee pain ) Physical Exam Physical Exam: Physical exam: General: No acute distress, HEENT: Anicteric sclera Heart: Regular S1-S2, no carotid bruit, no JVD, no lower extremity edema Lungs: Clear to auscultate, no wheeze or rales Abdomen: Soft nontender, Extremity: Tenderness and swelling on right knee, minimum range of motion secondary to pain Neuro: No focal neurological deficit normal speech, very forgetful Psych: Alert awake oriented to place and person, normal affect Results & Data Results & Data ([facility]) Vital Signs (Past 12 Hours) Vital Signs Temp Pulse Pulse Resp BP BP Pulse Ox 12/25/20 17:33 98 H 124/59 L 12/25/20 14:35 36.7 C 75 18 123/49 L 93 12/25/20 11:00 36.9 C 75 18 119/58 L 95 12/25/20 09:03 82 12/25/20 07:00 37.0 C 80 18 116/65 96
[2020-12-25] MEDS: cefTRIAXone SODIUM 2,000 MG in DEXTROSE 5% 50 ML IV SCH (19:43)
[2020-12-25] MEDS: NYSTATIN SUSP 500,000 U/5 ML UDC PO SCH ×2 (19:56→19:58)
--- NOTE | 2020-12-25 19:57 | Pharmacy Report ---
Pharmacy Abx Dose Short Note - Date of Service December 25, 2020 - Assessment & Plan Assessment 75 year old M receiving Vancomycin and Ceftriaxone for treatment of bone and joint infection * Day #2 of antimicrobial therapy * No growth in cultures. Afebrile x 24 hours now. Plan Vancomycin * Trough level of 25.7 mcg/mL is supratherapeutic * Change to 750 mg IV every 12 hours * Goal trough level: 15 to 20 mcg/mL * Trough level ordered for Monday Pharmacy will continue to follow and will adjust dose/frequency as necessary. Thank you.
[2020-12-26] MEDS: CHECK fentaNYL PATCH PLACEMENT SCH ×3 (01:22→16:58)
[2020-12-26] MEDS: predniSONE 5 MG TAB PO SCH (01:22)
[2020-12-26] MEDS: ABIRATERONE ACETATE PO SCH (01:22)
[2020-12-26] MEDS ORDERED: VANCOMYCIN HCL 750 MG in SODIUM CHLORIDE 0.9% 250 ML IV SCH ×2 (02:00→18:00)
[2020-12-26] MEDS: oxyCODONE HCL IR 5 MG TAB (IMMEDIATE RELEASE) PO PRN ×2 (03:46→20:21)
[2020-12-26 06:38] LABS: Est GFR (African American) 50.3 ml/min; Est GFR (Non-African American) 43.4 ml/min
[2020-12-26] MEDS: CALCIUM CARBONATE 1250MG TAB PO SCH (07:47)
[2020-12-26] MEDS: POT PHOSPHATE MONOBASIC W/ SOD TAB PO SCH ×2 (07:48→20:22)
[2020-12-26] MEDS: METOPROLOL TARTRATE 25 MG TAB PO SCH (07:48)
[2020-12-26] MEDS: UMECLIDINIUM BROMIDE 62.5MCG/BLISTER 7 PUFFS/INHALER INH SCH (07:49)
[2020-12-26] MEDS: NICOTINE 21 MG/24 HR TDSY TD SCH (07:49)
[2020-12-26] MEDS: NYSTATIN SUSP 500,000 U/5 ML UDC PO SCH ×4 (07:49→20:22)
[2020-12-26] MEDS: CHOLECALCIFEROL 1,000 UNITS 25 MCG TAB PO SCH (07:49)
[2020-12-26] MEDS: POLYETHYLENE (MIRALAX) 17 GM PACK PO SCH ×2 (07:50→20:22)
[2020-12-26] MEDS: bisacodyL 5 MG TABEC PO SCH (08:12)
[2020-12-26] MEDS: DOCUSATE SODIUM 100 MG CAP PO SCH ×2 (08:12→20:28)
--- NOTE | 2020-12-26 08:24 | Orthopedic Progress Note ---
Date of Service December 26, 2020 Assessment & Plan (1) Effusion, left knee: The left knee aspirate was sent for Gram stain and culture/sensitivity. I recently spoke with microbiology and there is no growth with the culture. I will have Dr. Reyes evaluate the patient today. We will continue to monitor his cultures. If the cultures begin to grow bacteria, he will require an arthroscopic I&D, partial medial and lateral meniscectomies. Continue IV ceftriaxone and vancomycin. Weight-bear as tolerated left lower extremity. Admission and Anticipated Discharge Date Admission Date: December 23, 2020 Supervising Physician Co-Signing Physician Notes Patient examined agree with above assessment and plan. Gram stain and cultures negative to date. We will continue to monitor. Right lower extremity is neurovascular sensory intact grossly, moderate effusion, range of motion 0 to 70 degrees of flexion with mild discomfort beyond 70 degrees of flexion. Trend inflammatory labs. Continue with IV antibiotics at this time. Subjective States the knee is feeling sore again today. She feels that the knee has filled up with fluid again. Yesterday, after the aspiration, he states the knee felt great. He had walked in the hallway quite a bit without any issues. Review of Systems Review of Systems: No fever chills Physical Exam Constitutional: WD/WN, vitals as above no acute distress Musculoskeletal: Knee: + effusion (Left knee moderate effusion), + limited ROM of knee (Decrease in left knee range of motion but no significant pain with ROM) and + joint line tenderness (Generalized left knee tenderness but mild.); no skin erythema, no ecchymosis and no crepitation with knee ROM Skin: no rashes, warm and dry Trauma: no evidence of skin trauma Neurologic: normal touch/pain/proprioception Psychiatric: A+Ox3, euthymic affect Speech: normal rate/rhythm/volume of speech Results & Data ([facility]) Vital Signs (Past 12 Hours) Vital Signs Temp Pulse Pulse Resp BP BP Pulse Ox 12/26/20 07:22 36.3 C L 77 18 136/67 94 12/26/20 03:48 36.7 C 86 18 142/62 H 97 12/25/20 23:10 87 12/25/20 22:20 37.3 C 95 H 20 150/68 H 96 12/25/20 20:25 37.9 C H 81 18 138/62 100
[2020-12-26] MEDS: fentaNYL 50 MCG/HR TDSY TD SCH (12:41)
--- NOTE | 2020-12-26 14:45 | Pharmacy Report ---
Pharmacy Abx Dose Short Note - Date of Service December 26, 2020 - Assessment & Plan Assessment 75 year old M receiving VANCOMYCIN/ROCEPHIN for treatment of LEFT KNEE JOINT INFECTION Day # 3 of antimicrobial therapy. Plan Vancomycin * Patient's renal function increased from 1.02 -> 1.56 today. * Trough level of 21.2 mcg/mL is slightly supratherapeutic, and not at Css. * Based on estimated peak from 12/25 and trough today, estimated t1/2 ~22hours. * Will give VANCOMYCIN 750mg IV x 1 today and recheck a random level in the am. Pharmacy will continue to follow and will adjust dose/frequency as necessary. Thank you.
--- NOTE | 2020-12-26 16:38 | Hospitalist Progress Note ---
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, COPD, CKD III, anxiety presented to ER with complaint of syncopal episodes with walking possible secondary to dehydration Blood pressure has been stable, no symptoms of dizzy spell or lightheadedness no further episode ECHO shows no valvular heart disease , normal EF CT Head: no acute findings (2) Hypotension: BP improved , no episode of dizzy spell or syncope Likely secondary to poor oral intake and possible opioids Frequent SVT; noted in monitor possible due to acute illness pt remains asymptomatic during those episode, no complain of palpation or lightheadedness Started on low-dose Lopressor ECHO shows no cardiac pathology (3) Effusion, left knee: Left knee edema and pain for past 10 days after prolonged kneeling on floor Xray knee from 12/20/20: No acute fracture. No suspicious osseous lesion by radiography. Small left knee joint effusion. 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 S/p radiation. Follows with Dr. Vicente. On Lupron Zytiga, prednisone 5 mg daily -Fentanyl patch recently was increased from 37mcg to 50mcg . -Continue Zytiga, Prednisone Constipation: Stable secondary to narcotic pain meds, cont bowel regimen Mouth sore /burning : possible due to jolanta ordered for PO Nystatin suspension (5) CKD (chronic kidney disease), stage III: Acute renal failure with CKD stage III, Possible secondary to dehydration, hypotension. NSAID discontinued, renally dose antibiotic, follow BMP (6) COPD (chronic obstructive pulmonary disease): No signs acute exacerbation -Continue home inhalers, nebs prn DVT Prophylaxis Lower extremity Doppler done at this admission showed no lower extremity DVT -Lovenox DNR/DNI Follows with Dr Mejia for routine care cont PT/OT , will need continued hospital stay for IV abx for infected L knee anil int appreciate input from PT/OT plan to return home with home PT once medically stable Admission and Anticipated Discharge Date Admission Date: December 23, 2020 Subjective Follow-up visit for fall/left knee pain, syncope. Patient denies of any dizzy spell or lightheadedness, sitting up on the edge of bed, no fever or chills Right knee pain remains the same, Vitals been stable, No further episode of syncope, no shortness of breath or dyspnea on exertion Appetite fair Review of Systems Review of Systems: All systems reviewed & are unremarkable except as noted in Subjective Physical Exam Physical Exam: Physical exam: General: No acute distress, HEENT: Anicteric sclera Heart: Regular S1-S2, no carotid bruit, no JVD, no lower extremity edema Lungs: Clear to auscultate, no wheeze or rales Abdomen: Soft nontender, Extremity: Status post aspiration of right knee joint, persistent swellin g/tenderness and erythema Neuro: No focal neurological deficit normal speech, very forgetful Psych: Alert awake oriented to place and person, normal affect Results & Data Results & Data ([facility]) Vital Signs (Past 12 Hours) Vital Signs Temp Pulse Pulse Resp BP BP Pulse Ox 12/26/20 15:49 37.3 C 75 18 126/60 98 12/26/20 10:59 36.5 C 74 18 113/65 96 12/26/20 08:30 70 12/26/20 07:22 36.3 C L 77 18 136/67 94 (1) Syncope Syncope type: unspecified Qualified Code(s): R55 - Syncope and collapse (2) Hypotension Hypotension type: unspecified hypotension type Qualified Code(s): I95.9 - Hypotension, unspecified
[2020-12-26] MEDS ORDERED: SODIUM CHLORIDE 0.9% 1000ML 1,000 ML IV SCH (16:50)
[2020-12-26] MEDS: LIDOCAINE 5% 1 PATCH TD SCH (16:58)
[2020-12-26] MEDS: cefTRIAXone SODIUM 2,000 MG in DEXTROSE 5% 50 ML IV SCH (20:21)
[2020-12-27] MEDS: ABIRATERONE ACETATE PO SCH (01:11)
[2020-12-27] MEDS: predniSONE 5 MG TAB PO SCH (01:11)
[2020-12-27] MEDS: CHECK fentaNYL PATCH PLACEMENT SCH ×4 (01:11→23:44)
[2020-12-27 06:41] LABS: BUN Creatinine Ratio 11.1 (10-20); Calcium 7.7 mg/dl (8.5-10.1); Creatinine Clr Calc Pharmacy 53.9 ml/min; Est GFR (African American) 56.4 ml/min; Est GFR (Non-African American) 48.7 ml/min; Potassium 3.6 mmol/L (3.5-5.1)
[2020-12-27] MEDS: NYSTATIN SUSP 500,000 U/5 ML UDC PO SCH ×4 (07:25→21:00)
[2020-12-27] MEDS: POT PHOSPHATE MONOBASIC W/ SOD TAB PO SCH ×2 (07:25→21:00)
[2020-12-27] MEDS: UMECLIDINIUM BROMIDE 62.5MCG/BLISTER 7 PUFFS/INHALER INH SCH (07:25)
[2020-12-27] MEDS: NICOTINE 21 MG/24 HR TDSY TD SCH (07:26)
[2020-12-27] MEDS: LIDOCAINE 5% 1 PATCH TD SCH (07:26)
[2020-12-27] MEDS: METOPROLOL TARTRATE 25 MG TAB PO SCH (07:27)
[2020-12-27] MEDS: POLYETHYLENE (MIRALAX) 17 GM PACK PO SCH (07:27)
[2020-12-27] MEDS: CALCIUM CARBONATE 1250MG TAB PO SCH (07:28)
[2020-12-27] MEDS: CHOLECALCIFEROL 1,000 UNITS 25 MCG TAB PO SCH (07:28)
--- NOTE | 2020-12-27 08:36 | Pharmacy Report ---
Pharmacy Abx Dose Short Note - Date of Service December 27, 2020 - Assessment & Plan Assessment 75 year old M receiving IV Vancomycin and Ceftriaxone (not a consult) for treatment of possible L knee joint infection Day # 4 of antimicrobial therapy. * Renal function is improving with sCr down to 1.42 mg/dL (from 1.56 mg/dL), however still impaired versus baseline Plan Vancomycin * Random level of 20.3 mcg/mL is slightly supratherapeutic. This level was drawn ~13 hours after last dose given at 1658. He received Vancomycin ~15 hours apart yesterday (dose was given around 0200 and 1700). Vancomycin trough level was 21.2 mg/dL on q12 dosing. Therefore, based on above, estimate that q18 may be appropriate. Bone infection requires aggressive dosing, although cultures have been negative to date. * Change to 750 mg IV every 18 hours * Goal trough level for possible bone infection : 15 to 20 mcg/mL * Trough level ordered for: 12/28/20 @ 0330; this is an early level not reflective of steady state, but want to assess dosing regimen earlier given fluctuating renal function and recent supratherapeutic levels. Pharmacy will continue to follow and will adjust dose/frequency as necessary. Thank you.
[2020-12-27] MEDS: DOCUSATE SODIUM 100 MG CAP PO SCH ×2 (08:56→20:58)
[2020-12-27] MEDS: bisacodyL 5 MG TABEC PO SCH (08:56)
[2020-12-27] MEDS ORDERED: VANCOMYCIN HCL 750 MG in SODIUM CHLORIDE 0.9% 250 ML IV SCH (10:00)
--- NOTE | 2020-12-27 10:29 | Orthopedic Progress Note ---
Date of Service December 27, 2020 Assessment & Plan (1) Effusion, left knee: Continue to follow cultures, trend inflammatory labs, discussed with patient if symptoms persist and cultures continue to remain negative may need re-aspiration. PT/OT, pain control, continue IV abx for now. Admission and Anticipated Discharge Date Admission Date: December 23, 2020 Subjective Patient seen laying in bed, symptoms relatively unchanged. Able to ambulate with discomfort and participate in PT. Denies F/C/N/V/SOB/CP. Review of Systems Review of Systems: All systems reviewed & are unremarkable except as noted in HPI & below Constitutional: as per Subjective / HPI Physical Exam Physical Exam: LLE NVSI +EHL/FHL/TA/GS SILT grossly, +2 DP pulse, compartments soft NT, moderate effusion, 0-70 degrees flexion, no erythema. Constitutional: WD/WN, vitals as above Results & Data ([facility]) Vital Signs (Past 12 Hours) Vital Signs Temp Pulse Pulse Resp BP BP Pulse Ox 12/27/20 07:11 36.8 C 69 18 130/68 97 12/27/20 02:08 37.0 C 82 20 145/70 H 96 12/27/20 00:28 80 12/26/20 23:00 37.4 C 77 14 146/55 H 97 Laboratory Results 12/27/20 12/27/20 12/26/20 Range/Units 06:06 06:06 13:24 Sodium 141 (136-145) mmol/L Potassium 3.6 (3.5-5.1) mmol/L Chloride 110 H (98-107) mmol/L Carbon Dioxide 26 (21-32) mmol/L Anion Gap 5.0 (3-11) BUN 16 (7-18) mg/dl Creatinine 1.42 H (0.6-1.4) mg/dl Est Cr Clr Drug Dosing 53.9 ml/min Est GFR ( Amer) 56.4 ml/min Est GFR (Non-Af Amer) 48.7 ml/min BUN/Creatinine Ratio 11.1 (10-20) Glucose 144 H (70-99) mg/dl Calcium 7.7 L (8.5-10.1) mg/dl Vancomycin Trough 21.2 (See Comment) mcg/ml Random Vancomycin 20.3 mcg/ml
[2020-12-27 11:05] LABS: Basophils # (auto) 0.04 K/uL (0-0.2); Basophils % (auto) 0.5 %; Eosinophils # (auto) 0.19 K/uL (0-0.5); Eosinophils % (auto) 2.6 %; Hematocrit (blood only) 29.7 % (42-52); Hemoglobin 9.9 g/dL (14.0-18.0); Immature Granulocytes # (auto) 0.02 K/uL (0.00-0.02); Immature Granulocytes % (auto) 0.3 %; Lymphocytes # (auto) 0.63 K/uL (1.2-3.4); Lymphocytes % (auto) 8.6 %; Mean Corpuscular Hemoglobin 31.5 pg (25-34); Mean Corpuscular Hgb Conc 33.3 g/dL (32-36); Mean Corpuscular Volume 94.6 fL (80-100); Mean Platelet Volume 9.2 fL (7.4-10.4); Monocytes # (auto) 0.54 K/uL (0.11-0.59); Monocytes % (auto) 7.3 %; Neutrophils # (auto) 5.94 K/uL (1.4-6.5); Neutrophils % (auto) 80.7 %; Platelet Count 307 K/uL (130-400); RDW Coefficient of Variation 13.3 % (11.5-14.5); Red Blood Count 3.14 M/uL (4.7-6.1); White Blood Count 7.36 K/uL (4.8-10.8)
[2020-12-27] MEDS: oxyCODONE HCL IR 5 MG TAB (IMMEDIATE RELEASE) PO PRN ×2 (12:48→20:59)
[2020-12-27] MEDS ORDERED: VANCOMYCIN TROUGH ONE (13:30)
[2020-12-27] MEDS ORDERED: bisacodyL 5 MG TABEC PO PRN (15:09)
[2020-12-27] MEDS ORDERED: POLYETHYLENE (MIRALAX) 17 GM PACK PO PRN (15:10)
--- NOTE | 2020-12-27 15:46 | Hospitalist Progress Note ---
Date of Service December 27, 2020 Assessment & Plan (1) Syncope: Pt is 75 y/o M with PMH prostate cancer with metastasis to bone and lung, COPD, CKD III, anxiety presented to ER with complaint of syncopal episodes with walking possible secondary to dehydration Blood pressure has been stable, no symptoms of dizzy spell or lightheadedness no further episode ECHO shows no valvular heart disease , normal EF CT Head: no acute findings Patient remains in stable mental status, no orthostatic hypotension noted. No further SVT, daily monitor discontinued (2) Hypotension: BP improved , no episode of dizzy spell or syncope Likely secondary to poor oral intake and possible opioids Frequent SVT; noted in monitor No further arrhythmia after starting on Lopressor possible due to acute illness pt remains asymptomatic during those episode, no complain of palpation or lightheadedness ECHO shows no cardiac pathology (3) Effusion, left knee: Left knee edema and pain for past 10 days after prolonged kneeling on floor Xray knee from 12/20/20: No acute fracture. No suspicious osseous lesion by radiography. Small left knee joint effusion. -MRI L knee shows bilateral meniscus tear with joint effusion -Orthopedics evaluation appreciated L knee joint aspiration done : Synovial fluid shows > 45470 WBC suggestive of infection Patient is started on Rocephin, vancomycin discontinued started on daptomycin synovial fluid culture no growth Orthopedics plan for knee aspiration tomorrow to assess improvement of WBC Antibiotic can be changed to p.o. 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 S/p radiation. Follows with Dr. Vicente. On Lupron Zytiga, prednisone 5 mg daily -Fentanyl patch recently was increased from 37mcg to 50mcg . -Continue Zytiga, Prednisone Constipation: Resolved secondary to narcotic pain meds, cont bowel regimen Mouth sore /burning : Improved, possible due to jolanta ordered for PO Nystatin suspension (5) CKD (chronic kidney disease), stage III: Acute renal failure with CKD stage III, Possible secondary to dehydration, hypotension. NSAID discontinued, renally dose antibiotic, follow BMP (6) COPD (chronic obstructive pulmonary disease): No signs acute exacerbation -Continue home inhalers, nebs prn DVT Prophylaxis Lower extremity Doppler done at this admission showed no lower extremity DVT -Lovenox DNR/DNI Follows with Dr Mejia for routine care appreciate input from PT/OT plan to return home with home PT once medically stable Spoke with patient's daughter, possible plan to return home tomorrow with home physical therapy Admission and Anticipated Discharge Date Admission Date: December 23, 2020 Subjective Follow-up visit for fall/left knee pain, syncope. Vitals been stable, feeling much better, eager to be discharged home Right knee pain moderately controlled, no fever or chills Physical Exam 2 Physical Exam: Physical exam: General: No acute distress, HEENT: Anicteric sclera Heart: Regular S1-S2, no carotid bruit, no JVD, no lower extremity edema Lungs: Clear to auscultate, no wheeze or rales Abdomen: Soft nontender, Extremity: Status post aspiration of right knee joint, persistent swelling/tenderness and erythema Neuro: No focal neurological deficit normal speech, very forgetful Psych: Alert awake oriented to place and person, normal affect Results & Data Results & Data ([facility]) Vital Signs (Past 12 Hours) Vital Signs Temp Pulse Pulse Resp BP Pulse Ox 12/27/20 15:37 36.9 C 72 18 133/57 L 90 12/27/20 09:00 76 12/27/20 07:11 36.8 C 69 18 130/68 97 (1) Syncope Syncope type: unspecified Qualified Code(s): R55 - Syncope and collapse (2) Hypotension Hypotension type: unspecified hypotension type Qualified Code(s): I95.9 - Hypotension, unspecified
[2020-12-27] MEDS: ENOXAPARIN INJ 40 MG/0.4 ML SYR SQ SCH (17:37)
[2020-12-27] MEDS: cefTRIAXone SODIUM 2,000 MG in DEXTROSE 5% 50 ML IV SCH (18:10)
[2020-12-27] MEDS ORDERED: DAPTOmycin 500 MG in SYRINGE 0 ML IV SCH (22:00)
[2020-12-28] MEDS: predniSONE 5 MG TAB PO SCH (01:13)
[2020-12-28] MEDS: ABIRATERONE ACETATE PO SCH (01:14)
[2020-12-28] MEDS ORDERED: VANCOMYCIN TROUGH ONE (03:30)
[2020-12-28] MEDS: METOPROLOL TARTRATE 25 MG TAB PO SCH (07:30)
[2020-12-28] MEDS: CHOLECALCIFEROL 1,000 UNITS 25 MCG TAB PO SCH (07:31)
[2020-12-28] MEDS: NICOTINE 21 MG/24 HR TDSY TD SCH (07:31)
[2020-12-28] MEDS: LIDOCAINE 5% 1 PATCH TD SCH (07:32)
[2020-12-28] MEDS: UMECLIDINIUM BROMIDE 62.5MCG/BLISTER 7 PUFFS/INHALER INH SCH (07:32)
[2020-12-28] MEDS: NYSTATIN SUSP 500,000 U/5 ML UDC PO SCH ×4 (07:33→21:10)
[2020-12-28] MEDS: CALCIUM CARBONATE 1250MG TAB PO SCH (07:33)
[2020-12-28] MEDS: POT PHOSPHATE MONOBASIC W/ SOD TAB PO SCH ×2 (07:33→21:10)
[2020-12-28] MEDS: CHECK fentaNYL PATCH PLACEMENT SCH ×2 (07:34→16:39)
[2020-12-28] MEDS: DOCUSATE SODIUM 100 MG CAP PO SCH ×2 (07:36→21:10)
[2020-12-28 07:52] LABS: Basophils # (auto) 0.04 K/uL (0-0.2); Basophils % (auto) 0.5 %; Eosinophils # (auto) 0.14 K/uL (0-0.5); Eosinophils % (auto) 1.9 %; Hemoglobin 11.5 g/dL (14.0-18.0); Immature Granulocytes # (auto) 0.03 K/uL (0.00-0.02); Immature Granulocytes % (auto) 0.4 %; Lymphocytes # (auto) 0.29 K/uL (1.2-3.4); Lymphocytes % (auto) 3.9 %; Mean Corpuscular Hemoglobin 31.8 pg (25-34); Mean Corpuscular Hgb Conc 32.9 g/dL (32-36); Mean Corpuscular Volume 96.7 fL (80-100); Mean Platelet Volume 9.8 fL (7.4-10.4); Monocytes # (auto) 0.63 K/uL (0.11-0.59); Monocytes % (auto) 8.4 %; Neutrophils # (auto) 6.37 K/uL (1.4-6.5); Neutrophils % (auto) 84.9 %; Platelet Count 421 K/uL (130-400); RDW Coefficient of Variation 13.3 % (11.5-14.5); RDW Standard Deviation 46.6 fL (36.4-46.3); Red Blood Count 3.62 M/uL (4.7-6.1)
[2020-12-28 07:53] LABS: Creatinine Clr Calc Pharmacy 46.6 ml/min; Est GFR (African American) 47.4 ml/min; Est GFR (Non-African American) 40.9 ml/min
[2020-12-28 14:50] VITALS: O2SAT 97
[2020-12-28] MEDS: SODIUM CHLORIDE 0.9% 1000ML 1,000 ML IV SCH (15:16)
--- NOTE | 2020-12-28 16:13 | Ultrasound Report ---
BILATERAL LOWER EXTREMITY VENOUS DOPPLER CLINICAL HISTORY: swelling /erythema rule out DVT COMPARISON STUDY: Bilateral lower extremity venous Doppler ultrasound December 24, 2020. TECHNIQUE: Sonography of the deep venous system of the bilateral lower extremities was performed. Co mpression and augmentation were evaluated. FINDINGS: The bilateral common femoral, superficial femoral and popliteal veins were compressible. A ugmentation was normal. Flow was shown within the deep calf vessels. A 6.7 x 2.3 x 3.8 cm hypoechoic left groin abnormality is similar to ultrasound of December 24, 2020. This contains low level internal ech oes and is deep to the femoral vessels. There is no color flow within this finding. IMPRESSION: 1. No evidence of deep venous thrombus within the bilateral lower extremities. 2. No significant change in a 6.7 x 2.3 x 3.8 cm hypoechoic left groin abnormality. This favors a flu id collection such as resolving hematoma. A mass is within the differential but considered less likel y. ACT 112: Negative or not required by law. Electronically signed by: Dagoberto Wiggins M.D. 12/28/2020 4:12 PM
--- NOTE | 2020-12-28 16:37 | CT Scan Report ---
ABDOMEN AND PELVIS CT WITHOUT CONTRAST CT DOSE: 504.62 mGy.cm HISTORY: metastatic prostate cancer/renal failure TECHNIQUE: Multiaxial CT images of the abdomen and pelvis were performed without contrast. A dose lo wering technique was utilized adhering to the principles of ALARA. COMPARISON STUDY: Radiation oncology abdomen and pelvis CT 03/12/2020. Abdomen and pelvis CT 12/02/2017 . FINDINGS: There are trace bilateral pleural effusions. Bibasilar densities favor atelectasis. No pneu moperitoneum. No pneumatosis. 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 This has slig htly progressed in the interval. No change in the mild L2 compression deformity. The unenhanced liver , gallbladder, spleen, adrenal glands, and pancreas are within normal limits. Mild aneurysmal dilatat ion of the distal abdominal aorta measuring up to 3.2 cm in diameter. This is similar to the prior st udy. No retroperitoneal pelvic lymphadenopathy. Mild fat stranding/edema within the presacral space a nd perinephric spaces. This may be chronic. Redemonstration of the horseshoe kidney with atrophic lef t moiety. No hydronephrosis. No bladder wall thickening. There is mild body wall edema. No renal or u reteral stones. Stable 2.2 cm hypodense lesion within the left renal moiety. This demonstrates a smal l amount of peripheral calcification. This favors a cyst. Small fat-containing right inguinal hernia. Suboptimal evaluation for bowel pathology due to the lack of intravenous and oral contrast. However, there is no definite bowel wall thickening or obstruction. Colonic diverticulosis. No evidence for a cute diverticulitis. There is a small left iliopsoas bursa. IMPRESSION: 1. Slight progression of the multifocal osteoblastic metastatic disease. 2. Horseshoe kidney is again noted. No renal or ureteral stones. No hydronephrosis. 3. Mild bilateral perinephric edema. There is also mild presacral edema and mild body wall edema. Thi s favors the patient's diffuse edematous state. The perinephric edema could also be seen in the setti ng of a pyelonephritis. Recommend correlation with urinalysis. 4. No definite bowel wall thickening or obstruction. 5. Colonic diverticulosis. 6. Additional findings as described above. ACT 112: Negative or not required by law. Electronically signed by: Gabe Isaacs M.D. 12/28/2020 4:36 PM
[2020-12-28] MEDS: ENOXAPARIN INJ 40 MG/0.4 ML SYR SQ SCH (16:39)
[2020-12-28] MEDS: oxyCODONE HCL IR 5 MG TAB (IMMEDIATE RELEASE) PO PRN (16:42)
--- NOTE | 2020-12-28 16:49 | Communication Note ---
Date of Service: December 28, 2020 Pt currently in [place]. Daughter present with Dr. Terrazas in pt's room. Discussed the patients case concerning his knee. At this time, we will hold off of any further aspirations. Cx remain negative. With his immunocompromised state, plan will be to send home on po Keflex per Dr. Terrazas. We will have patient follow up with Dr. Evans in the near future for possible planning for outpt arthroscopy.
[2020-12-28 18:30] LABS: Appearance Urine Clear (Clear); Bilirubin Urine Negative (Negative); Blood Urine 1+ (Negative); Color Urine Yellow; Glucose Urine UA Negative (Negative); Ketones Urine Trace (Negative); Leukocyte Esterase Urine Trace (Negative); Nitrite Urine Negative (Negative); Protein Urine Trace (Negative); Urobilinogen Urine Negative (Negative); pH Urine 6.5 (4.5-7.5)
[2020-12-28 18:52] LABS: Epithelial Cell Urine 0-5 /lpf (0-5)
[2020-12-28 18:53] LABS: Bacteria Urine Negative (Negative); Renal Epithelial Cells Urine 0-5 /lpf (0-5)
--- NOTE | 2020-12-28 19:05 | Hospitalist Progress Note ---
Date of Service December 28, 2020 Assessment & Plan (1) Syncope: Pt is 75 y/o M with PMH prostate cancer with metastasis to bone and lung, COPD, CKD III, anxiety presented to ER with complaint of syncopal episodes with walking possible secondary to dehydration Blood pressure has been stable, no symptoms of dizzy spell or lightheadedness no further episode ECHO shows no valvular heart disease , normal EF CT Head: no acute findings Patient remains in stable mental status, no orthostatic hypotension noted. No further episode of SVT after started on low-dose beta-laura Discussed discharge planning in detail with daughter present at bedside, And to discharge home with home health home PT, patient will be followed by orthopedics In clinic, surgery evaluation vision for arthroscopic procedure for left need (2) Hypotension: No further episode, BP improved , no episode of dizzy spell or syncope Possible secondary to dehydration, resolved after IV fluids ECHO shows no cardiac pathology (3) Effusion, left knee: Left knee edema and pain for past 10 days after prolonged kneeling on floor Xray knee from 12/20/20: No acute fracture. No suspicious osseous lesion by radiography. Small left knee joint effusion. -MRI L knee shows bilateral meniscus tear with joint effusion -Orthopedics evaluation appreciated L knee joint aspiration done : Synovial fluid shows > 36312 WBC suggestive of infection Patient is started on Rocephin, vancomycin discontinued started on daptomycin synovial fluid culture no growth Discussed with orthopedics, no indication to repeat aspiration, patient will be discharged home with p.o. Keflex. Clinic follow-up with with orthopedics for possible arthroscopic procedure (4) Prostate cancer metastatic to multiple sites: Prostate cancer with metastasis to bone and lung. S/p radiation. Follows with Dr. Vicente. On Lupron Zytiga, prednisone 5 mg daily -Fentanyl patch recently was increased from 37mcg to 50mcg . -Continue Zytiga, Prednisone Constipation: Resolved secondary to narcotic pain meds, cont bowel regimen CT abdomen pelvis shows no evidence of obstruction, Mouth sore /burning : Improved, possible due to jolanta ordered for PO Nystatin suspension (5) CKD (chronic kidney disease), stage III: Acute renal failure with CKD stage III, Possible secondary to dehydration, hypotension. NSAID discontinued, renally dose antibiotic, follow BMP Ordered IV hydration, repeat BMP in a.m., CT abdomen pelvis shows no hydronephrosis, or bladder obstruction (6) COPD (chronic obstructive pulmonary disease): No signs acute exacerbation -Continue home inhalers, nebs prn DVT Prophylaxis Lower extremity Doppler done at this admission showed no lower extremity DVT -Lovenox DNR/DNI Follows with Dr Mejia for routine care appreciate input from PT/OT plan to return home with home PT once medically stable Patient will be discharged home tomorrow Admission and Anticipated Discharge Date Admission Date: December 23, 2020 Subjective Follow-up visit for fall/left knee pain, syncope. Vitals been stable, feeling much better, eager to be discharged home Right knee pain moderately controlled, no fever or chills Physical Exam Physical Exam: Physical exam: General: No acute distress, HEENT: Anicteric sclera Heart: Regular S1-S2, no carotid bruit, no JVD, no lower extremity edema Lungs: Clear to auscultate, no wheeze or rales Abdomen: Soft nontender, Extremity: Status post aspiration of right knee joint, persistent swelling/tenderness and erythema Neuro: No focal neurological deficit normal speech, very forgetful Psych: Alert awake oriented to place and person, normal affect Results & Data Results & Data ([facility]) Vital Signs (Past 12 Hours) Vital Signs Temp Pulse Resp BP BP Pulse Ox 12/28/20 14:50 36.8 C 69 18 135/70 97 12/28/20 11:05 36.5 C 71 18 131/69 98 12/28/20 07:22 36.9 C 80 18 135/69 95 (1) Syncope Syncope type: unspecified Qualified Code(s): R55 - Syncope and collapse (2) Hypotension Hypotension type: unspecified hypotension type Qualified Code(s): I95.9 - Hypotension, unspecified
[2020-12-28] MEDS: cefTRIAXone SODIUM 2,000 MG in DEXTROSE 5% 50 ML IV SCH (19:35)
[2020-12-29] MEDS: ABIRATERONE ACETATE PO SCH (01:32)
[2020-12-29] MEDS: predniSONE 5 MG TAB PO SCH (01:32)
[2020-12-29] MEDS: CHECK fentaNYL PATCH PLACEMENT SCH ×2 (01:34→08:25)
[2020-12-29] MEDS: SODIUM CHLORIDE 0.9% 1000ML 1,000 ML IV SCH ×2 (02:45→12:44)
[2020-12-29 07:41] VITALS: TEMP 98.4
[2020-12-29] MEDS: POT PHOSPHATE MONOBASIC W/ SOD TAB PO SCH (08:26)
[2020-12-29] MEDS: CHOLECALCIFEROL 1,000 UNITS 25 MCG TAB PO SCH (08:26)
[2020-12-29] MEDS: CALCIUM CARBONATE 1250MG TAB PO SCH (08:26)
[2020-12-29] MEDS: DOCUSATE SODIUM 100 MG CAP PO SCH (08:26)
[2020-12-29] MEDS: METOPROLOL TARTRATE 25 MG TAB PO SCH (08:26)
[2020-12-29] MEDS: NICOTINE 21 MG/24 HR TDSY TD SCH (08:27)
[2020-12-29] MEDS: LIDOCAINE 5% 1 PATCH TD SCH (08:28)
[2020-12-29 08:29] LABS: BUN Creatinine Ratio 9.2 (10-20); Calcium 7.7 mg/dl (8.5-10.1); Est GFR (African American) 50.3 ml/min; Est GFR (Non-African American) 43.4 ml/min; Potassium 3.5 mmol/L (3.5-5.1)
[2020-12-29] MEDS: NYSTATIN SUSP 500,000 U/5 ML UDC PO SCH ×2 (08:30→12:47)
[2020-12-29] MEDS: UMECLIDINIUM BROMIDE 62.5MCG/BLISTER 7 PUFFS/INHALER INH SCH (08:57)
[2020-12-29] MEDS: fentaNYL 50 MCG/HR TDSY TD SCH (12:48)
[2020-12-29 13:06] VITALS: BP 131/69; PULSE 72
[2020-12-29 13:29] LABS: Lyme DNA PCR CSF or Synovial Not detected (Not Detected); Lyme DNA Source Synovial Fluid
--- NOTE | 2020-12-30 13:30 | Discharge Summary ---
Date of Service December 30, 2020 Admission HPI Per Admitting Provider Pt is 75 y/o M with PMH prostate cancer with metastasis to bone and lung, COPD, CKD III, anxiety presented to ER with complaint of syncopal episodes. Patient states for the past month has been having lightheadedness with standing and walking. Reports today was walking using walker when became diaphoretic, family was able to get patient to chair and he had syncopal episode for approximately 1 minute per patient's daughter. Denies loss control bowel or bladder. Patient states remember not feeling well when he was walking but does not remember the syncopal episode. Daughter reports patient also had fallen yesterday when he got up out of a chair and patient does not remember how he fell. Couple of days ago patient was walking from bathroom when he had become diaphoretic and then fallen into his bed. Daughter is unsure if patient had complete syncopal episode at that time. Denies any loss of control of bowel or bladder, chest pain, shortness of breath. Patient reports past 3 weeks has not had any appetit e and has not been eating or drinking well. 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 Patient states initially knee had some red coloration which resolved after 2 days, however pain and swelling has persisted. He is on 37 mcg fentanyl patch chronically and has oxycodone 5 mg to use for breakthrough pain which he typically does not need, however past several days has been needing to use his oxycodone 2-3 times a day. He has been having difficulty ambulating secondary to knee pain. He is seen at [facility] on 12/20/2020 and had x-ray of left knee showing effusion and septic joint was not suspected at that time. He was also seen by PCP and referred to Ortho and has MRI knee ordered for 12/31/2020. Patient denies any fevers, chills. Past week with constipation, is passing flatus denies any abdominal pain. Denies fever/chills, diaphoresis, N/V/D, COOPER, dizziness, vision changes, neck pain, orthopnea, palpitations, cough, sore throat, choking, otalgia, rhinorrhea, abdominal pain, paresthesias, weakness, extremity weakness, other extremity edema, rashes, urinary retention, urinary frequency, hematuria. Principal Diagnosis Dehydration/lightheadedness resolved Acute renal failure on CKD stage III Metastatic prostate cancer with widespread bone mets Left knee pain/effusion Discharge Exam Physical exam: General: frail appearing male, no sign of distress HEENT: PERRLA, EOMI, Heart: Regular S1-S2, no carotid bruit, no JVD, Lungs: Clear to auscultate, no wheeze or rales Abdomen: Soft nontender, no organomegaly Extremity: left knee minimum swelling and tenderness , no overlying erythema or skin tear Neuro: No focal neurological deficit normal speech, Psych: Alert awake oriented x3, normal affect Discharge Data Allergies Allergy/AdvReac Type Severity Reaction Status Date / Time acetaminophen [From Tylenol] Allergy Hives Verified 12/24/20 19:41 Consultations 12/23/20 12:13 ED Decision to Admit Stat 12/23/20 15:36 Consult Orthopedic Surgery Routine Ordered Studies 12/23/20 12:47 CT head/brain wo con Stat 12/23/20 15:36 MR knee LT wo con Routine US carotid doppler BI Routine 12/24/20 19:25 US venous doppler LE LT Urgent 12/28/20 14:45 CT abd pelvis wo con Routine US venous doppler LE BI Routine Hospital Course (1) Syncope: Pt is 75 y/o M with PMH prostate cancer with metastasis to bone and lung, COPD, CKD III, anxiety presented to ER with complaint of syncopal episodes with walking possible secondary to dehydration Blood pressure has been stable, no symptoms of dizzy spell or lightheadedness no further episode ECHO shows no valvular heart disease , normal EF CT Head: no acute findings Patient remains in stable mental status, no orthostatic hypotension noted. No further episode of SVT after started on low-dose beta-laura stable to be discharge home with home health home PT, patient will be followed by orthopedics In clinic, surgery evaluation vision for arthroscopic procedure for left knee (2) Hypotension: No further episode, BP improved , no episode of dizzy spell or syncope Possible secondary to dehydration, resolved after IV fluids ECHO shows no cardiac pathology (3) Effusion, left knee: Left knee edema and pain for past 10 days after prolonged kneeling on floor Xray knee from 12/20/20: No acute fracture. No suspicious osseous lesion by radiography. Small left knee joint effusion. -MRI L knee shows bilateral meniscus tear with joint effusion -Orthopedics evaluation appreciated L knee joint aspiration done : Synovial fluid shows > 60843 WBC suggestive of infection Patient is started on Rocephin, vancomycin discontinued started on daptomycin synovial fluid culture no growth Discussed with orthopedics, no indication to repeat aspiration, patient will be discharged home with p.o. Keflex. Clinic follow-up with with orthopedics for possible arthroscopic procedure (4) Prostate cancer metastatic to multiple sites: Prostate cancer with metastasis to bone and lung. S/p radiation. Follows with Dr. Vicente. On Lupron Zytiga, prednisone 5 mg daily -Fentanyl patch recently was increased from 37mcg to 50mcg . -Continue Zytiga, Prednisone Constipation: Resolved secondary to narcotic pain meds, cont bowel regimen CT abdomen pelvis shows no evidence of obstruction, Mouth sore /burning : Improved, possible due to jolanta ordered for PO Nystatin suspension /symptoms has improved (5) CKD (chronic kidney disease), stage III: Acute renal failure with CKD stage III, Possible secondary to dehydration, hypotension. NSAID discontinued, renally dose antibiotic, follow BMP cr improved abdomen pelvis shows no hydronephrosis, or bladder obstruction (6) COPD (chronic obstructive pulmonary disease): No signs acute exacerbation -Continue home inhalers, nebs prn DVT Prophylaxis Lower extremity Doppler done at this admission showed no lower extremity DVT -Lovenox DNR/DNI Follows with Dr Mejia for routine care appreciate input from PT/OT stable to be discharged home today Total Time Total Time Spent Total Time Spent (In Minutes): 35 min Total Time Includes: Discharge Planning and Medication Reconciliation Discharge Plan Discharge Items Patient Disposition: Home - Home Health Services Reason For Visit: SYNCOPE Discharge Diagnosis: Dehydration/lightheadedness resolved Acute renal failure on CKD stage III Metastatic prostate cancer with widespread bone mets Left knee pain/effusion Activity: As commented below Activity Comment: Nonweightbearing on left knee Weightbearing: Left non-weightbearing Non-emergency contact: Primary Care Provider Call non-emergency contact if: you have any medication questions Follow-up/Referrals: Jorge Mejia MD [Primary Care Provider] - (Date & Time 12/31/2020 3:00 PM Provider Jorge Mejia MD [facility] ) Gilbert Evans MD [Surgeon] - Diet: Regular Addtl Attending Provider Instructions: Follow-up with orthopedics in 1-2 weeks he will need arthroscopic procedure for left knee meniscal tear. Repeat blood work: Basic metabolic panel in 1 week Do not take group of medications belonging to NSAIDs group -can cause worsening of your kidney function. List Of these medications includes but not limited to: Aspirin Diclofenac Ibuprofen, Motrin, Advil Toradol,ketorolac Naproxen, Aleve, Naprosyn You can take Tylenol as needed for pain or fever When buying [id number] pain medications please consult with pharmacy if you are not sure regarding ingredients, as a lot of the pain medications have combination of NSAIDs and Tylenol. Addtl Ladder Operator Provider Instructions: Please take all medications as instructed on discharge list below. It is recommended that you follow-up with your primary care physician within 1-2 weeks of hospital discharge to ensure you are still doing well. Please call if you have any questions or problems. You can reach a [facility] hospitalist on duty at [facility] 24 hours a day by calling [phone] PLEASE TAKE PROBIOTICS ( OVER THE COUNTER ) WHILE TAKING ANTIBIOTICS TO PREVENT DIARRHEA /LOOSE STOOL Pending Studies at Discharge: No Stand-Alone Forms: My [facility], Smoking Cessation Medications and DC Order Prescriptions: New fentanyl 50 mcg/hr Patch 72 Hour 50 mcg transdermal Q72H Qty: 10 RF: 0 nystatin 100,000 unit/mL Suspension 5 ml PO QID Qty: 120 RF: 0 metoprolol tartrate 25 mg Tablet 12.5 mg PO QAM 30 Days Qty: 15 RF: 3 polyethylene glycol 3350 [Miralax] 17 gram Powder In Packet 17 g PO BID PRNQty: 0 RF: 0 docusate sodium 100 mg Capsule 100 mg PO BID Qty: 0 RF: 0 bisacodyl [Gentle Laxative (bisacodyl)] 5 mg Tablet,Delayed Release (Dr/Ec) 5 mg PO DAILY PRNQty: 0 RF: 0 cephalexin 500 mg capsule 500 mg PO Q8H 10 Days Qty: 30 RF: 0 Continued oxycodone 5 mg tablet 5 mg PO Q8H PRN (Reason: Pain) RF: 0 lorazepam 0.5 mg tablet 0.5 mg PO TID PRN (Reason: Anxiety) RF: 0 abiraterone [Zytiga] 250 mg tablet 1,000 mg PO DAILY RF: 0 prednisone 5 mg tablet 5 mg PO DAILY RF: 0 cholecalciferol (vitamin D3) 25 mcg (1,000 unit) capsule 25 mcg PO DAILY RF: 0 tiotropium bromide 2.5 mcg/actuation mist 2 puffs inhalation DAILY Qty: 1 RF: 0 polyethylene glycol 3350 17 gram/dose powder 17 g PO DAILY PRN (Reason: Constipation) RF: 0 docusate sodium 100 mg capsule 100 mg PO DAILY RF: 0 ipratropium-albuterol 0.5 mg-3 mg(2.5 mg base)/3 mL solution for nebulization 3 ml INHALATION Q6 PRN (Reason: Shortness Of Breath Or Wheezing) RF: 0 ondansetron HCl 8 mg tablet 8 mg PO Q8 PRN (Reason: Nausea) RF: 0 calcium 500 mg Tablet 1,000 mg PO DAILY RF: 0 temazepam 7.5 mg Capsule 7.5 mg PO HS PRN (Reason: Sleep) RF: 0 X-Dlfu-Gwbarfc 250 mg Tablet 1 tab PO BID RF: 0 Discontinued fentanyl 12 mcg/hr patch 72 hour 1 patch transdermal Q72H RF: 0 fentanyl 25 mcg/hr patch 72 hour 1 patch TD Q72H RF: 0 Discharge Orders: Discharge Order (Routine); Ordered 12/29/20 Ordered By: Lidia Saldivar/Other Patient Handouts: Treating Constipation Admission Data Admit Date/Time: 12/23/20 12:50 Attending Provider: Lidia Terrazas Admit Provider: Hardik Carmona Primary Care Provider: Jorge Mejia Other Providers: [facility],Home [facility] ; Hardik Carmona ; Lazaro Mayorga Other Interventions: Discharge Summary Assessment (RN) Last Done: 12/29/20 13:03
--- NOTE | 2021-01-06 11:20 | Coding Query ---
To promote full compliance with coding requirements relating to patient care, provider participation is requested in all cases of superintendent plant protection uncertainty. Please assist us with the question(s) below: Coding Question(s): The diagnosis(es) below was documented in the early record, then subsequently fell off all further documentation. Please indicate if it is still a possible diagnosis or ruled out. Physician's Response(s): POSSIBLE UTI - (documented on H&P) ( ) Diagnosed and POA ( ) Diagnosed and not POA ( x ) Ruled out ( ) Other (please specify) POSSIBLE LEFT KNEE INFECTION - (documentation 12/24 Communication Note possible left knee joint infection and PN 12/25 then later Progress Notes and Discharge Summary document synovial fluid no growth) ( ) Diagnosed and POA ( ) Diagnosed and not POA ( ) Ruled out ( x ) Other (please specify): possible inflammatory joint effusion MTDD
== END 2020-12-29 13:45 | disposition home health service (06) | DRG 641 ==
LOC: ED 09:37 → 2N 12:50 → SUATTDRO 12:50 → 2N 14:54 → 2W 21:13